=== PATIENT | male | born 1950 | race Caucasian/White ===

== ENCOUNTER 2017-07-08 21:34 | Inpatient (IN) | payer BC, OTHER ==
[~2017-07-08] VITALS: Ht 172.7 cm; Wt 88.1 kg
[~2017-07-08 21:34] MED LIST: ASPEC81 PO; ATOR80TA PO; ENAL1TAB29 PO; EZET10TA63 PO; FLUO0.0543 EXT; GEMF600T3 PO; GLC500 PO; INSU100I2 INJ; INSUINJ4 SQ; KPP/1000 PO; METO-452 PO; MULT-506 PO; PRLSR20 PO; TRIA0.1C20 TOP; VGR25 PO; [UNRECOGNIZED DRUG - OTHER] PO
[2017-07-08] MEDS ORDERED: LEVETIRACETAM IV 1,000 MG in DEXTROSE 5% 100ML 100 ML IV ONE (21:45)
[2017-07-08 21:51] LABS: BASO % 0.3 %; BASO ABS # 0.02 K/uL (0-0.2); EOS % 2.5 %; EOS ABS # 0.19 K/uL (0-0.5); HEMATOCRIT 39.5 % (42-52); HEMOGLOBIN 13.5 g/dL (14.0-18.0); IG# 0.02 K/uL (0.00-0.02); LYMPH % 42.7 %; LYMPH ABS # 3.26 K/uL (1.2-3.4); MEAN CELL VOLUME 90.2 fL (80-100); MEAN CORPUSCULAR HEMOGLOBIN 30.8 pg (25-34); MEAN CORPUSCULAR HGB CONC 34.2 g/dl (32-36); MEAN PLATELET VOLUME 10.3 fL (7.4-10.4); MONO % 6.7 %; MONO ABS # 0.51 K/uL (0.11-0.59); NEUT % 47.5 %; NEUT ABS # 3.64 K/uL (1.4-6.5); PLATELET COUNT 242 K/uL (130-400); RED CELL DISTRIBUTION WIDTH CV 12.7 % (11.5-14.5); RED CELL DISTRIBUTION WIDTH SD 41.8 fL (36.4-46.3); WHITE BLOOD COUNT 7.64 K/uL (4.8-10.8)
--- NOTE | 2017-07-08 22:01 | DIAGNOSTIC IMAGING REPORT ---
CT HEAD WITHOUT CONTRAST (CT) CLINICAL HISTORY: Seizure COMPARISON STUDY: 04/04/2018 TECHNIQUE: Axial CT of the brain is performed from the vertex to the skull base. IV contrast was not administered for this examination. A dose lowering technique was utilized adhering to the principles of ALARA. CT DOSE: 614.27 mGy.cm FINDINGS: No intra or extra-axial mass lesions are visualized. There is no CT evidence of acute cortical infarction. There is no evidence of midline shift. There is no acute hemorrhage. No calvarial fractures are visualized. There are patchy white matter hypodensities likely on a small vessel basis. There are postsurgical changes of a left frontotemporal craniotomy. There is left frontal lobe encephalomalacia. 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 There is no evidence of pathologic ventricular dilatation. There is no evidence of acute sinusitis. There is a right maxillary sinus polyp/retention cyst IMPRESSION: Postsurgical changes of a left frontotemporal craniotomy. Old left frontal encephalomalacia. No acute intracranial findings. Electronically signed by: Osman Contreras M.D. 07/08/2017 10:00 PM Dictated Date/Time: 07/08/2017 9:57 PM
[2017-07-08 22:03] LABS: PTT PATIENT 26.4 SECONDS (21.0-31.0)
[2017-07-08] MEDS ORDERED: CLBPO15 TOP (22:03)
[2017-07-08 22:04] LABS: BLOOD UREA NITROGEN 21 mg/dl (7-18); CALCIUM 10.1 mg/dl (8.5-10.1); CARBON DIOXIDE 27 mmol/L (21-32); CREATININE 1.19 mg/dl (0.60-1.40); GLUCOSE 139 mg/dl (70-99); POTASSIUM 4.2 mmol/L (3.5-5.1); SODIUM 137 mmol/L (136-145)
[2017-07-08 22:12] LABS: ISTAT CREATININE 1.2 mg/dl (0.6-1.3); ISTAT IONIZED CALCIUM 1.32 mmol/l (1.12-1.32); ISTAT POTASSIUM 3.7 mEq/L (3.3-5.0)
--- NOTE | 2017-07-08 22:14 | DIAGNOSTIC IMAGING REPORT ---
CHEST ONE VIEW PORTABLE CLINICAL HISTORY: SEIZURE COMPARISON STUDY: 04/04/2016 FINDINGS: The cardiac and mediastinal contours remain stable. There is a poor inspiration with low lung volumes. There is no lobar consolidation. There are no significant pleural effusions. There is no overt failure.[ There is chronic left basilar interstitial thickening. IMPRESSION: Poor inspiration with hypoventilatory changes. No evidence of lobar consolidation Electronically signed by: Osman Contreras M.D. 07/08/2017 10:13 PM Dictated Date/Time: 07/08/2017 10:12 PM
[2017-07-08] MEDS ORDERED: SODIUM CHLORIDE 0.9% IV STA (23:18)
[2017-07-08] MEDS ORDERED: LACOSAMIDE IV STA (23:18)
[2017-07-08] MEDS ORDERED: ONDANSETRON INJ 2 MG/ML 2 ML VIAL IV PRN (23:45)
[2017-07-08] MEDS ORDERED: TRIAMCINOLONE ACET 0.1% CR 15 GM TUBE EXT PRN (23:45)
[2017-07-08] MEDS ORDERED: FLUOCINONIDE 0.05% OINT 15 GM TUBE EXT PRN (23:45)
[2017-07-09 00:40] VITALS: BP 137/74; PULSE 92; TEMP 36.8; O2SAT 99; Ht 172.7 cm; Wt 88.1 kg
--- NOTE | 2017-07-09 00:43 | EMERGENCY ROOM VISIT NOTE ---
History Report prepared by Jerardo: Gage Kovacs Under the Supervision of: Dr. Julio Cesar Sun M.D. First contact with patient: 21:41 Chief Complaint: SEIZURE Stated Complaint: CONFUSION, STROKE SX Nursing Triage Summary: seizure at 2014 History of Present Illness The patient is a 66 year old male who presents to the Emergency Room via [facility] following multiple (intermittent) seizure episodes that occurred over the past 75 minutes. Per the patient's they were in the kitchen preparing dinner at roughly 2015 this evening when the patient began to exhibit a "focal seizure." He was to staring off to the right, and was blinking his eyes uncontrollably. He would not respond to his . This episode lasted about 45 seconds before he began to respond again. Following this episode he was walking around and he knew who his was. His sat him down on a chair.The patient was then post-ictal and the phoned for EMS. When en route to the hospital, the patient had a Grand Mal seizure that EMS state lasted 45 seconds. The patient's notes that he has a history of seizures and is currently on Keppra 2000 mg twice per day. He took his Keppra dosage tonight right before this seizure began. His seizure history began 2 years ago after a Meningioma was removed. Last week, before they took a trip to [place], the patient developed a right-sided facial droop and had pain in his right eye. They stopped in an ED on their trip and the patient was diagnosed with [place] Palsy. She denies any recent falls that could have caused a head injury. His blood sugar was 145 upon arrival to the ED. 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 Past Medical & Surgical Medical Problems: (1) CAD (coronary artery disease) (2) Coronary artery disease (3) Diabetes mellitus, type II (4) Dyslipidemia (5) Hypertension (6) Seizures, generalized convulsive (7) Type 2 diabetes mellitus Surgical Problems: (1) Status post cardiac catheterization (2) Status post coronary artery stent placement (3) Status post lumbar surgery Family History Alzheimer's disease MOTHER Social History Smoking Status: Never Smoker Alcohol Use: occasionally Drug Use: none Marital Status: Housing Status: lives with significant other Occupation Status: employed Current/Historical Medications Scheduled Aspirin Enteric Coated (Ecotrin Or Generic *), 81 MG PO DAILY Atorvastatin (Lipitor), 80 MG PO DAILY Clobetasol Propionate (Clobetasol Propionate), 1 APPLN TOP DAILY Enalapril Maleate (Vasotec), 2.5 MG PO DAILY Ezetimibe (Zetia), 10 MG PO QAM Fluocinonide 0.05% (Lidex 0.05%), 1 APPLN EXT UD Gemfibrozil (Lopid), 600 MG PO BID Insulin Glargine (Lantus Solostar Pen), 33 UNIT SQ HS Insulin Lispro (Human) (Humalog Kwikpen), 8 UNITS INJ UD Levetiracetam (Keppra), 2,000 MG PO BID Metformin HCL (Glucophage *), 1,000 MG PO BID Metoprolol Succinate (Toprol Xl), 25 MG PO DAILY Multivitamin (Multivitamin), 1 TAB PO DAILY Sildenafil Citrate (Viagra), 25 MG PO UD Triamcinolone Acet 0.1% (Aristocort 0.1%), 1 APPLN TOP UD [Fiber Chews], 2 TABS PO DAILY Allergies Coded Allergies: Sulfamethoxazole w/Trimethoprim (Verified Allergy, Intermediate, RASH, ) Ofloxacin (Unverified Allergy, Unknown, RASH, 07/08/17) Physical Exam Vital Signs Date Time Temp Pulse Resp B/P (MAP) Pulse Ox O2 Delivery O2 Flow Rate FiO2 07/08/17 23:43 98 21 129/88 98 Nasal Cannula 3.0 Non-Rebreather 07/08/17 22:18 119 21 130/77 98 Nasal Cannula 3.0 Non-Rebreather 07/08/17 22:02 129 07/08/17 22:02 100 Non-Rebreather 10.0 07/08/17 22:02 73 21 /156 100 Non-Rebreather 10.0 Physical Exam The physical exam is limited due to the patient's condition. Constitutional: Vital signs reviewed. Eyes: Pupils are equal round reactive to light. Conjunctiva are noninjected. ENT: Unable to assess. Respiratory: Clear to auscultation bilaterally. Breath sounds are equal bilaterally. Cardiovascular: Tachycardic. Heart rate 133. GI: Soft, nondistended and nontender. Bowel sounds are present. Musculoskeletal: No peripheral edema. No evidence of trauma. Integumentary: No cyanosis. Neurological: The patient is postictal. Psychiatric: Unable to assess. Medical Decision & Procedures ER Provider Diagnostic Interpretation: Radiology results as stated below per my review and the radiologist's interpretation: CHEST ONE VIEW PORTABLE CLINICAL HISTORY: SEIZURE COMPARISON STUDY: 04/04/2016 FINDINGS: The cardiac and mediastinal contours remain stable. There is a poor inspiration with low lung volumes. There is no lobar consolidation. There are no significant pleural effusions. There is no overt failure.[ There is chronic left basilar interstitial thickening. IMPRESSION: Poor inspiration with hypoventilatory changes. No evidence of lobar consolidation Electronically signed by: Osman Contreras M.D. 07/08/2017 10:13 PM Dictated Date/Time: 07/08/2017 10:[address] HEAD WITHOUT CONTRAST (CT) CLINICAL HISTORY: Seizure COMPARISON STUDY: 04/04/2018 TECHNIQUE: Axial CT of the brain is performed from the vertex to the skull base. IV contrast was not administered for this examination. A dose lowering technique was utilized adhering to the principles of ALARA. CT DOSE: 614.27 mGy.cm FINDINGS: No intra or extra-axial mass lesions are visualized. There is no CT evidence of acute cortical infarction. There is no evidence of midline shift. There is no acute hemorrhage. No calvarial fractures are visualized. There are patchy white matter hypodensities likely on a small vessel basis. There are postsurgical changes of a left frontotemporal craniotomy. There is left frontal lobe encephalomalacia. 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 There is no evidence of pathologic ventricular dilatation. There is no evidence of acute sinusitis. There is a right maxillary sinus polyp/retention cyst IMPRESSION: Postsurgical changes of a left frontotemporal craniotomy. Old left frontal encephalomalacia. No acute intracranial findings. Electronically signed by: Osman Contreras M.D. 07/08/2017 10:00 PM Dictated Date/Time: 07/08/2017 9:57 PM Laboratory Results 07/08/17 21:00 Red Blood Count 4.38, Mean Corpuscular Volume 90.2, Mean Corpuscular Hemoglobin 30.8, Mean Corpuscular Hemoglobin Concent 34.2, Mean Platelet Volume 10.3, Neutrophils (%) (Auto) 47.5, Lymphocytes (%) (Auto) 42.7, Monocytes (%) (Auto) 6.7, Eosinophils (%) (Auto) 2.5, Basophils (%) (Auto) 0.3, Neutrophils # (Auto) 3.64, Lymphocytes # (Auto) 3.26, Monocytes # (Auto) 0.51, Eosinophils # (Auto) 0.19, Basophils # (Auto) 0.02 07/08/17 21:00 Test 07/08/17 21:00 07/08/17 21:59 White Blood Count 7.64 K/uL (4.8-10.8) Red Blood Count 4.38 M/uL (4.7-6.1) Hemoglobin 13.5 g/dL (14.0-18.0) Hematocrit 39.5 % (42-52) Mean Corpuscular Volume 90.2 fL (80-100) Mean Corpuscular Hemoglobin 30.8 pg (25-34) Mean Corpuscular Hemoglobin Concent 34.2 g/dl (32-36) Platelet Count 242 K/uL (130-400) Mean Platelet Volume 10.3 fL (7.4-10.4) Neutrophils (%) (Auto) 47.5 % Lymphocytes (%) (Auto) 42.7 % Monocytes (%) (Auto) 6.7 % Eosinophils (%) (Auto) 2.5 % Basophils (%) (Auto) 0.3 % Neutrophils # (Auto) 3.64 K/uL (1.4-6.5) Lymphocytes # (Auto) 3.26 K/uL (1.2-3.4) Monocytes # (Auto) 0.51 K/uL (0.11-0.59) Eosinophils # (Auto) 0.19 K/uL (0-0.5) Basophils # (Auto) 0.02 K/uL (0-0.2) RDW Standard Deviation 41.8 fL (36.4-46.3) RDW Coefficient of Variation 12.7 % (11.5-14.5) Immature Granulocyte % (Auto) 0.3 % Immature Granulocyte # (Auto) 0.02 K/uL (0.00-0.02) Prothrombin Time 10.8 SECONDS (9.0-12.0) Prothromb Time International Ratio 1.0 (0.9-1.1) Activated Partial Thromboplast Time 26.4 SECONDS (21.0-31.0) Partial Thromboplastin Ratio 1.0 Estimated GFR () 73.9 Estimated GFR (Non- 63.7 BUN/Creatinine Ratio 17.6 (10-20) Calcium Level 10.1 mg/dl (8.5-10.1) Magnesium Level 1.6 mg/dl (1.8-2.4) Thyroid Stimulating Hormone (TSH) 3.050 uIu/ml (0.300-4.500) Bedside Hemoglobin 14.6 g/dl (14.0-18.0) Bedside Hematocrit 43 % (42-52) Bedside Sodium 144 mEq/L (135-144) Bedside Potassium 3.7 mEq/L (3.3-5.0) Bedside Chloride 106 mEq/L (101-112) Bedside Total CO2 14 mEq/l (24-31) Anion Gap 29.0 mmol/L (16-25) Bedside Blood Urea Nitrogen 25 mg/dl (7-18) Bedside Creatinine 1.2 mg/dl (0.6-1.3) Bedside Glucose (other) 178 mg/dl (70-99) Bedside Ionized Calcium (Shayan) 1.32 mmol/l (1.12-1.32) Laboratory results as reviewed by me. Medications Administered Medications (Trade) Dose Ordered Sig/Stephanie Route Start Time Stop Time Status Last Admin Dose Admin Levetiracetam 1000 mg/Dextrose 110 ml @ 440 mls/hr ONE ONCE IV 07/08/17 21:45 07/08/17 21:59 DC 07/08/17 22:25 440 MLS/HR Lacosamide 200 mg/ Sodium Chloride 70 ml @ 140 mls/hr ONE STAT IV 07/08/17 23:18 07/08/17 23:47 DC 07/08/17 23:54 140 MLS/HR ECG Indication: altered mental status, other (Seizure) Rate (beats per minute): 123 Rhythm: sinus tachycardia Findings: no ectopy, other (No ST-segment abnormalities, baseline artifact noted) Change: Patient's electrocardiogram per my interpretation. ED Course 2135: The patient was evaluated in room B1. A complete history and physical exam was performed. 2144: Ordered Levetiracetam 110 mL @ 440 mL/hr IV. 2147: I checked on the patient at this time. He is currently post ictal. 2205: The patient is now making some minor purposeful movements. He is responding to his 's voice. 2244: I discussed the case with Dr. Juan Miguel Isaac Neurology. She is going to do some research and call me back. 225: I discussed the case with Dr. Marcia Isaac Hospitalist. He will evaluate the patient for further treatment. 2308: I spoke with Dr. Bullard again at this time. She suggests treating the patient with 200 mg of VIMPAT as a loading dose, then 100 BID. 2316: The patient is awake and alert. He was able to swallow some water. I am concerned for Aspiration with oral medications, I will give medication IV. 2318: Ordered Lacosamide 200 mg -- 70 mL @ 140 mL/hr IV. 2320: The patient is now up and moving about the room. He is not really answering questions. Medical Decision This is a 66-year-old male who presents with seizures. Differential diagnosis includes breakthrough seizure, status epilepticus, intracranial hemorrhage, intracranial mass, metabolic derangement. I did perform a limited focused review of portions of the patient's old chart on the electronic medical record. The patient has had no recent pertinent visits to this hospital. He was here for a seizure in March of 2016, he was diagnosed with status epilepticus and flown to [facility]. I did immediately evaluate the patient as noted above. Shortly after arrival the patient developed a grand mal seizure. He was given Ativan 2 mg IV. His seizure did stop. The patient was placed on a continuous cardiac rehab nurse. I did order and personally review the patient's 12-lead EKG and chest x-ray as described above. I did order and review the patient's blood work as noted in the electronic medical record. I did order a CT of the head. I did review the images myself as well as the radiology report as described above. There is no evidence of intracranial hemorrhage. I did treat the patient with Keppra 1 g IV. I did reassess the patient multiple times. He did not have another seizure. He was poked rectal for some time but then awoke and responded to his . I did discuss case with Dr. Grissom of neurology who recommended basement patient on Vimpat. I was not sure that the patient could swallow pills and so I did treat him with Vimpat 200 mg IV. I did discuss the case with the hospitalist and correctional counselor/case manager. He will be continued on Vimpat 100 mg twice a day in the hospital and also Keppra. Medication Reconcilliation Current Medication List: was personally reviewed by me Blood Pressure Screening Patient's blood pressure: Elevated blood pressure Consults Time Called: 2239 Consulting Physician: Dr. Juan Miguel Isaac Neurology Returned Call: 2244 I discussed the case with Dr. Juan Miguel Isaac Neurology. She is going to do some research and call me back. 2307: I spoke with Dr. Bullard again at this time. She suggests treating the patient with 200 mg of VIMPAT as a loading dose, then 100 BID. Additional Consults: Time Called: 2245 Consulted Physician: Dr. Marcia Isaac Hospitalist Returned Call: 2249 Additional Comments: I discussed the case with Dr. Marcia Isaac Hospitalist. He will evaluate the patient for further treatment. Impression Primary Impression: Seizures Critical Care I have personally spent 42 minutes of critical care time in the direct management of this patient. This includes bedside care, interpretation of diagnostic studies, and testing, discussion with consultants, patient, and family members, and other required patient management activities. This 42 minutes is in excess of all separately billable procedures. Scribe Attestation The scribe's documentation has been prepared under my direct and personally reviewed by me in its entirety. I confirm that the note above accurately reflects all work, treatment, procedures, and medical decision making performed by me. Departure Information Dispostion Being Evaluated By Hospitalist Referrals Giovanny Braxton MD (PCP) Patient Instructions [facility]
[2017-07-09] MEDS ORDERED: MAGNESIUM SULFATE 1GM / D5W 1 GM in PREMIXED IN D5W 100 ML IV STA (00:56)
--- NOTE | 2017-07-09 01:23 | HISTORY & PHYSICAL EXAMINATION ---
DATE OF ADMISSION: 07/08/2017 PRIMARY CARE PHYSICIAN: Dr. Braxton. CHIEF COMPLAINT: Seizures since this evening. 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 Apparently has had initial seizures sometime in 2014 and at that time he was diagnosed to have meningioma of the left frontal lobe. He had surgery for the meningioma in 2014 in [place]. He was taking Keppra and Vimpat following surgery. The Vimpat was taken and then Keppra was in the process of weaning off. Sometime in 2015, he had another seizure and required intubation, he was sent to [place]. Following that, he is back on 2000 mg b.i.d. of Keppra and until this evening he was doing pretty good. In the evening, he was in the kitchen, he was with his , and noticed that he was looking at the ceiling like a vacant look and he was moving his hands upward without any purposeful movement and he was noted to be dysphasic as well. At that point, called EMT. In the process of coming to the Emergency Room, in the ambulance he had a grand mal seizure which was treated with intravenous Ativan, and then in the ER, he had another focal seizure as well. His CAT scan and other labs remain unremarkable. So the case was discussed with on-call neurologist by the ER physician and was advised to give a loading dose of Vimpat and the patient was admitted to telemetry unit for continuation of care. The patient remains in postictal state in the Emergency Room. PAST MEDICAL HISTORY: CAD, status post angioplasty and stent, diabetes type 2, seizures secondary to meningioma and meningectomy from the left frontal lobe, hyperlipidemia, history of renal stone, hemorrhoids. PAST SURGICAL HISTORY: Significant for cardiac cath with angioplasty, removal of supratentorial brain tumor, i.e., meningioma. FAMILY HISTORY: Significant in that maternal grandmother had hyperlipidemia. Mother has Alzheimer's disease and father at the age of 89. SOCIAL HISTORY: He is . He lives with his . He has 2 children. He quit smoking in 2003. He drinks alcohol very very occasionally. He has had 2 or 3 drinks recently when he was in vacation with family members. No drinking as of yesterday or today. ALLERGIES: HE IS ALLERGIC TO BACTRIM AND OFLOXACIN. MEDICATIONS: He has been on insulin Humalog as directed, metformin 1000 mg b.i.d., Viagra 25 mg as directed, aspirin 81 mg daily, Lipitor 80 mg daily, clobetasol propionate as directed, Vasotec 2.5 mg daily, Zetia 10 mg daily, fluocinonide 0.05% ointment as directed, Lopid 600 mg b.i.d., Lantus 33 units subcu at bedtime, Keppra 2000 mg b.i.d., Toprol-XL 50 mg tablet half tablet daily, multivitamin 1 tablet daily, Aristocort cream 0.1% as directed. REVIEW OF SYSTEMS: Not possible at this time due to postictal state. PHYSICAL EXAMINATION: GENERAL: In the Emergency Room, he was in postictal state. He was moving all the limbs. He was trying to speak but not making any sense when he was speaking. He was not following any commands. HEENT: Unremarkable. VITAL SIGNS: Temperature, afebrile; pulse 119; blood pressure 130/77; saturation 98% on 3 liters nasal cannula. HEENT: Unremarkable. NECK: Supple. No JVD, no bruit. CHEST: Clear to auscultation bilaterally. HEART: S1, S2, regular. ABDOMEN: Soft, benign, nontender. No organomegaly. Bowel sounds present. EXTREMITIES: Negative. CENTRAL NERVOUS SYSTEM: Not really examined due to postictal state. LABORATORY DATA: Noted today white count was 7.64, H&H 13.5/39, platelet was 242. Sodium 144, potassium 3.7, chloride 106, carbon dioxide 27, anion gap 29, BUN 25, creatinine 1.19, random glucose 178. TSH was 3.050. Magnesium 1.6. PT and INR unremarkable. CT of the head did show post-surgical changes of left frontotemporal craniectomy, old left frontal encephalomalacia, but no acute findings. Chest x-ray reported as poor inspiration with hypoventilatory changes, no evidence of lobar consolidation. EKG was in sinus tachycardia, rate of 123, normal axis and nonspecific ST-T wave changes. IMPRESSION AND PLAN: 1. Episodes of seizures with history of seizure disorder. The seizures controlled with intravenous Ativan in the ambulance and also he received additional doses of Vimpat IV in the Emergency Room. He was admitted to telemetry unit. Seizure precaution, fall precaution and neuro check q. shift. We will continue with Keppra at previous dose of 2000 b.i.d. and add Vimpat 100 mg b.i.d., he received loading dose of 200 mg IV in the Emergency Room. Neurology consultation. 2. Meningioma, status post surgery. The cause of the seizure initially was meningioma, and then following surgery, he was continued with anti-seizure medication. We will continue seizure medication right now. 3. Diabetes type 2. Hold metformin. Continue Lantus and also put him on sliding scale coverage. Check hemoglobin A1c. 4. Coronary artery disease, status post cardiac stent. No acute findings. EKG remains unremarkable. Continue metoprolol in the hospital. 5. Hyperlipidemia. Continue with antilipid medication. 6. Gastrointestinal prophylaxis, Maalox and Mylanta as needed. 7. Deep venous thrombosis prophylaxis with SCDs. Because of seizures, we will not put any pharmacological anticoagulation right now. 8. Code status. He will be full code. In my clinical judgment, the beneficiary meets criteria as per CMS for 2-midnight stay in the hospital. ANEUDY
[2017-07-09] MEDS: INSULIN ASPART 100 UNITS/ML 3 ML PEN SC SCH ×3 (01:47→22:48)
[2017-07-09] MEDS: NSS + 20MEQ KCL 1000ML 1,000 ML IV SCH ×3 (02:54→22:26)
[2017-07-09] MEDS ORDERED: LORAZEPAM 2 MG/ML 1 ML VIAL IV PRN (03:45)
[2017-07-09 04:21] VITALS: BP 115/71; PULSE 93; TEMP 36.6; O2SAT 98
[2017-07-09 07:04] LABS: HEMATOCRIT 35.3 % (42-52); HEMOGLOBIN 12.3 g/dL (14.0-18.0); MEAN CELL VOLUME 90.3 fL (80-100); MEAN CORPUSCULAR HEMOGLOBIN 31.5 pg (25-34); MEAN CORPUSCULAR HGB CONC 34.8 g/dl (32-36); MEAN PLATELET VOLUME 9.9 fL (7.4-10.4); PLATELET COUNT 206 K/uL (130-400); RED CELL DISTRIBUTION WIDTH CV 12.9 % (11.5-14.5); RED CELL DISTRIBUTION WIDTH SD 41.5 fL (36.4-46.3); WHITE BLOOD COUNT 8.64 K/uL (4.8-10.8)
[2017-07-09 07:36] LABS: CREATININE 0.94 mg/dl (0.60-1.40); POTASSIUM 4.4 mmol/L (3.5-5.1)
[2017-07-09 07:37] LABS: PHOSPHORUS 3.4 mg/dl (2.5-4.9)
[2017-07-09 08:00] VITALS: BP_SYST 123; BP_SYST 144; BP_DIAS 63; BP_DIAS 69; PULSE 71; PULSE 80; TEMP 36.8; O2SAT 98
[2017-07-09] MEDS ORDERED: INFLUENZA ADMINISTRATION CHARGE ONE (08:00)
[2017-07-09] MEDS ORDERED: INFLUENZA VACCINE HIGH DOSE 65+ 0.5 ML SYR IM. ONE (08:00)
[2017-07-09 08:50] LABS: HEMOGLOBIN A1C 7.5 % (4.5-5.6)
[2017-07-09] MEDS: GEMFIBROZIL 600 MG TAB PO SCH ×2 (10:26→22:13)
[2017-07-09] MEDS: EZETIMIBE 10MG TAB PO SCH (10:26)
[2017-07-09] MEDS: ATORVASTATIN 40 MG TAB PO SCH (10:26)
[2017-07-09] MEDS: ENALAPRIL MALEATE 5 MG TAB PO SCH (10:28)
[2017-07-09] MEDS: ASPIRIN 81 MG ECTAB PO SCH (10:28)
[2017-07-09] MEDS: LACOSAMIDE 50 MG TAB PO SCH ×2 (10:30→22:43)
[2017-07-09] MEDS: LEVETIRACETAM 500 MG TAB PO SCH ×2 (10:30→22:13)
[2017-07-09] MEDS: MULTIVITAMIN TAB PO SCH (10:30)
[2017-07-09] MEDS: METOPROLOL SUCC 25MG EXT REL TAB PO SCH (10:31)
[2017-07-09] MEDS: CLOBETASOL PROPIONATE 0.05% OINT 15 GM TUBE EXT SCH (10:36)
[2017-07-09 11:54] VITALS: BP 131/58; PULSE 88; TEMP 36.5; O2SAT 96
[2017-07-09] MEDS ORDERED: NURSING VERBAL MED ORDER ONE (12:30)
--- NOTE | 2017-07-09 13:12 | EEG Procedure Note ---
EEG Procedure Note Date of Service Jul 09, 2017. Start / End Times Start Time: 9:10 AM End Time: 9:[address] Kennedy History This is a 66-year-old male who presents with seizure-like activity. EEG for further evaluation of seizure etiology. Home Medication List Scheduled Aspirin Enteric Coated (Ecotrin Or Generic *), 81 MG PO DAILY Atorvastatin (Lipitor), 80 MG PO DAILY Clobetasol Propionate (Clobetasol Propionate), 1 APPLN TOP DAILY Enalapril Maleate (Vasotec), 2.5 MG PO DAILY Ezetimibe (Zetia), 10 MG PO QAM Fluocinonide 0.05% (Lidex 0.05%), 1 APPLN EXT UD Gemfibrozil (Lopid), 600 MG PO BID Insulin Glargine (Lantus Solostar Pen), 33 UNIT SQ HS Insulin Lispro (Human) (Humalog Kwikpen), 8 UNITS INJ UD Levetiracetam (Keppra), 2,000 MG PO BID Metformin HCL (Glucophage *), 1,000 MG PO BID Metoprolol Succinate (Toprol Xl), 25 MG PO DAILY Multivitamin (Multivitamin), 1 TAB PO DAILY Sildenafil Citrate (Viagra), 25 MG PO UD Triamcinolone Acet 0.1% (Aristocort 0.1%), 1 APPLN TOP UD [Fiber Chews], 2 TABS PO DAILY Inpatient Medication List Current Inpatient Medications Medications (Trade) Dose Ordered Sig/Stephanie Route Start Time Stop Time Status Last Admin Dose Admin Ondansetron HCl (Zofran Inj) 4 mg Q6H PRN IV 07/08/17 23:45 08/07/17 23:44 Aspirin (Ecotrin Tab) 81 mg DAILY PO 07/09/17 09:00 08/08/17 08:59 07/09/17 10:28 81 MG Atorvastatin Calcium (Lipitor Tab) 80 mg DAILY PO 07/09/17 09:00 08/08/17 08:59 07/09/17 10:26 80 MG Enalapril Maleate (Vasotec Tab) 2.5 mg DAILY PO 07/09/17 09:00 08/08/17 08:59 07/09/17 10:28 2.5 MG EZETIMIBE (Zetia Tab) 10 mg QAM PO 07/09/17 09:00 08/08/17 08:59 07/09/17 10:26 10 MG Fluocinonide (Lidex Oint) 1 appln DAILY PRN EXT 07/08/17 23:45 08/07/17 23:44 Gemfibrozil (Lopid Tab) 600 mg BID PO 07/09/17 09:00 08/08/17 08:59 07/09/17 10:26 600 MG Insulin Glargine (Lantus Solostar Pen) 33 units HS SQ 07/09/17 21:00 08/08/17 20:59 Levetiracetam (Keppra Tab) 2,000 mg BID PO 07/09/17 09:00 08/08/17 08:59 07/09/17 10:30 2,000 MG Metoprolol Succinate (Toprol Xl Tab) 25 mg DAILY PO 07/09/17 09:00 08/08/17 08:59 07/09/17 10:31 25 MG Multivitamins (Multivitamin Tab) 1 tab DAILY PO 07/09/17 09:00 08/08/17 08:59 07/09/17 10:30 1 TAB Triamcinolone Acetonide (Kenalog 0.1% Cream) 1 appln BID PRN EXT 07/08/17 23:45 08/07/17 23:44 Clobetasol Propionate (Clobetasol Propionate Oint) 1 appln DAILY EXT 07/09/17 09:00 08/08/17 08:59 07/09/17 10:36 1 APPLN Potassium Chloride/Sodium Chloride 1,000 ml @ 100 mls/hr Q10H IV 07/09/17 01:30 07/10/17 07:29 07/09/17 02:54 100 MLS/HR Lacosamide (Vimpat Tab) 100 mg BID PO 07/09/17 09:00 08/08/17 08:59 07/09/17 10:30 100 MG Lorazepam (Ativan Inj) 1 mg ONE PRN IV 07/09/17 03:45 08/08/17 03:44 Insulin Aspart (novoLOG ASPART) SLIDING SCALE G... ACHS SC 07/09/17 16:15 08/08/17 16:14 Description This is a 21 electrode EEG with a single channel dedicated to limited EKG. The electrodes were placed in accordance with the International 10-20 system. At the start of the recording the patient was in an awake state. Background was well organized and composed of symmetric mixed alpha and beta frequencies. There was a symmetric well-formed moderate amplitude 9-10 Hz posterior dominant rhythm that was reactive to eye opening and closure. Hyperventilation was not done. Intermittent photic stimulation at various frequencies produced no abnormalities. Sleep was indicated by vertex waves and symmetric sleep spindles. Interpretation This is a normal awake and asleep routine EEG. There was no electrographic seizures or epileptiform discharges. Clinical Correlation A normal EEG does not rule out epilepsy if there is a strong clinical suspicion.
--- NOTE | 2017-07-09 14:49 | Neurology Consultation ---
Neurology Consultation Date of Consultation: Jul 09, 2017. Attending Physician: Cody Calixto M.D. Primary Care Physician: Giovanny Braxton MD Reason for Consultation: seizure disorder with breakthrough seizure History of Present Illness Source: patient, spouse He is a 66-year-old male with PMH CAD x 2 stents, DL, DM, HTN his first seizure was secondary to meningioma and surgery following meningioma. The initial seizure was in 2014 and at that time he was diagnosed with the meningioma He had surgery for the meningioma in 2014 in [place]. He was taking Keppra and Vimpat following surgery. He was weaned off the Vimpat and then the Keppra but in 2016, he had another seizure and required intubation, he was sent to [place]. he was restarted on the 2000 mg b.i.d. of Keppra with good control until last evening. His states he was in the kitchen and had a starring episode looking up to the ceiling. he was moving his hands in an upward motion with no purpose. At that point, called EMT. In the ambulance he had a grand mal seizure and they were going to give him ativan but the seizure stopped before administration. He then had another focal seizure in the ED. He had incontinence of bladder and bit his upper lip on the left. The ED then gave a loading dose of Vimpat. 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 this has mostly resolved. denies CP, SOB, abdominal pain, weakness, numbness tingling, vision changes, falls, missed doses, N, V. He was a smoker for age [age]. no Etoh use, no other drugs. states he did eat lunch with no swallowing issues. Past Medical/Surgical History Medical Problems: (1) Seizures Status: Acute Social History Smoking Status: Former smoker Drug Use: none Marital Status: Housing Status: lives with significant other Occupation Status: employed Allergies Coded Allergies: Sulfamethoxazole w/Trimethoprim (Verified Allergy, Intermediate, RASH, ) Ofloxacin (Unverified Allergy, Unknown, RASH, 07/08/17) Current Inpatient Medications Current Inpatient Medications Medications (Trade) Dose Ordered Sig/Stephanie Route Start Time Stop Time Status Last Admin Dose Admin Ondansetron HCl (Zofran Inj) 4 mg Q6H PRN IV 07/08/17 23:45 08/07/17 23:44 Aspirin (Ecotrin Tab) 81 mg DAILY PO 07/09/17 09:00 08/08/17 08:59 07/09/17 10:28 81 MG Atorvastatin Calcium (Lipitor Tab) 80 mg DAILY PO 07/09/17 09:00 08/08/17 08:59 07/09/17 10:26 80 MG Enalapril Maleate (Vasotec Tab) 2.5 mg DAILY PO 07/09/17 09:00 08/08/17 08:59 07/09/17 10:28 2.5 MG EZETIMIBE (Zetia Tab) 10 mg QAM PO 07/09/17 09:00 08/08/17 08:59 07/09/17 10:26 10 MG Fluocinonide (Lidex Oint) 1 appln DAILY PRN EXT 07/08/17 23:45 08/07/17 23:44 Gemfibrozil (Lopid Tab) 600 mg BID PO 07/09/17 09:00 08/08/17 08:59 07/09/17 10:26 600 MG Insulin Glargine (Lantus Solostar Pen) 33 units HS SQ 07/09/17 21:00 08/08/17 20:59 Levetiracetam (Keppra Tab) 2,000 mg BID PO 07/09/17 09:00 08/08/17 08:59 07/09/17 10:30 2,000 MG Metoprolol Succinate (Toprol Xl Tab) 25 mg DAILY PO 07/09/17 09:00 08/08/17 08:59 07/09/17 10:31 25 MG Multivitamins (Multivitamin Tab) 1 tab DAILY PO 07/09/17 09:00 08/08/17 08:59 07/09/17 10:30 1 TAB Triamcinolone Acetonide (Kenalog 0.1% Cream) 1 appln BID PRN EXT 07/08/17 23:45 08/07/17 23:44 Clobetasol Propionate (Clobetasol Propionate Oint) 1 appln DAILY EXT 07/09/17 09:00 08/08/17 08:59 07/09/17 10:36 1 APPLN Potassium Chloride/Sodium Chloride 1,000 ml @ 100 mls/hr Q10H IV 07/09/17 01:30 07/10/17 07:29 07/09/17 11:30 100 MLS/HR Lacosamide (Vimpat Tab) 100 mg BID PO 07/09/17 09:00 08/08/17 08:59 07/09/17 10:30 100 MG Lorazepam (Ativan Inj) 1 mg ONE PRN IV 07/09/17 03:45 08/08/17 03:44 Insulin Aspart (novoLOG ASPART) SLIDING SCALE G... ACHS SC 07/09/17 16:15 08/08/17 16:14 Physical Exam Vital Signs (Past 24 Hrs): Date Time Temp Pulse Resp B/P (MAP) Pulse Ox O2 Delivery O2 Flow Rate FiO2 07/09/17 12:00 Nasal Cannula 2.0 07/09/17 11:54 36.5 88 16 131/58 (82) 96 07/09/17 08:00 Nasal Cannula 2.0 07/09/17 08:00 36.8 80 18 123/69 (87) 98 07/09/17 04:21 36.6 93 17 115/71 (86) 98 Nasal Cannula 4.0 07/09/17 04:20 Nasal Cannula 4.0 07/09/17 00:40 36.8 92 16 137/74 99 Nasal Cannula 4.0 07/08/17 23:43 98 21 129/88 98 Nasal Cannula 3.0 Non-Rebreather 07/08/17 22:18 119 21 130/77 98 Nasal Cannula 3.0 Non-Rebreather 07/08/17 22:02 129 07/08/17 22:02 100 Non-Rebreather 10.0 07/08/17 22:02 73 21 /156 100 Non-Rebreather 10.0 Physical Exam: Constitutional: appearance nourished, healthy and normal Ears, Nose, Mouth and Throat: mucous membranes moist, no injection and skin normal, eyes normal, left upper lip abrasion Cardiovascular: normal S-1 and S-2 and regular rate and rhythm Respiratory: clear to auscultation (CTA) and no rales, rhonchi or wheeze Musculoskeletal: no peripheral edema and good distal pulses Skin: no stigmata of neurocutaneous disease noted and normal and intact Eyes: extraocular muscles intact (EOMI) and pupils equal, round and reactive to light (PERRL) NEUROLOGIC EXAMINATION: Mental status: Alert and interactive Oriented to full date and location, June, when asked if it is Winter summer spring or fall he keeps repeating June Oriented to person Speech he is repeating things and is notably confused Cranial Nerves slight flattening of naso labial fold, Reflexes: Deep tendon reflexes were symmetrical and graded 2/5. Plantar responses were flexor. Sensory: light or cool touch Coordination: finger to nose with no bi pass, has some trouble with doing this but when repeat follow command Gait/Stance: Posture sitting up in bed Motor: Negative for pronator drift of out stretched arms with eyes closed. Strength: biceps triceps hand extractor filler bilaterally 5/5, hip flex plantar flex ext bilaterally Laboratory Results Past 24 Hours: 07/09/17 06:45 07/09/17 06:45 Test 07/08/17 21:00 07/08/17 21:59 07/09/17 06:45 07/09/17 07:17 Immature Granulocyte % (Auto) 0.3 % White Blood Count 7.64 K/uL (4.8-10.8) Red Blood Count 4.38 M/uL (4.7-6.1) 3.91 M/uL (4.7-6.1) Hemoglobin 13.5 g/dL (14.0-18.0) Hematocrit 39.5 % (42-52) Mean Corpuscular Volume 90.2 fL (80-100) 90.3 fL (80-100) Mean Corpuscular Hemoglobin 30.8 pg (25-34) 31.5 pg (25-34) Mean Corpuscular Hemoglobin Concent 34.2 g/dl (32-36) 34.8 g/dl (32-36) Platelet Count 242 K/uL (130-400) Mean Platelet Volume 10.3 fL (7.4-10.4) 9.9 fL (7.4-10.4) Neutrophils (%) (Auto) 47.5 % Lymphocytes (%) (Auto) 42.7 % Monocytes (%) (Auto) 6.7 % Eosinophils (%) (Auto) 2.5 % Basophils (%) (Auto) 0.3 % Neutrophils # (Auto) 3.64 K/uL (1.4-6.5) Lymphocytes # (Auto) 3.26 K/uL (1.2-3.4) Monocytes # (Auto) 0.51 K/uL (0.11-0.59) Eosinophils # (Auto) 0.19 K/uL (0-0.5) Basophils # (Auto) 0.02 K/uL (0-0.2) Immature Granulocyte # (Auto) 0.02 K/uL (0.00-0.02) Prothrombin Time 10.8 SECONDS (9.0-12.0) Prothromb Time International Ratio 1.0 (0.9-1.1) Activated Partial Thromboplast Time 26.4 SECONDS (21.0-31.0) Partial Thromboplastin Ratio 1.0 Thyroid Stimulating Hormone (TSH) 3.050 uIu/ml (0.300-4.500) Bedside Hemoglobin 14.6 g/dl (14.0-18.0) Bedside Hematocrit 43 % (42-52) Bedside Sodium 144 mEq/L (135-144) Bedside Potassium 3.7 mEq/L (3.3-5.0) Bedside Chloride 106 mEq/L (101-112) Bedside Total CO2 14 mEq/l (24-31) Bedside Blood Urea Nitrogen 25 mg/dl (7-18) Bedside Creatinine 1.2 mg/dl (0.6-1.3) Bedside Glucose (other) 178 mg/dl (70-99) Bedside Ionized Calcium (Shayan) 1.32 mmol/l (1.12-1.32) RDW Standard Deviation 41.5 fL (36.4-46.3) RDW Coefficient of Variation 12.9 % (11.5-14.5) Anion Gap 8.0 mmol/L (3-11) Est Creatinine Clear Calc Drug Dose 84.7 ml/min Estimated GFR () 98.2 Estimated GFR (Non- 84.7 BUN/Creatinine Ratio 21.3 (10-20) Estimated Average Glucose 169 mg/dl Hemoglobin A1c 7.5 % (4.5-5.6) Calcium Level 9.0 mg/dl (8.5-10.1) Phosphorus Level 3.4 mg/dl (2.5-4.9) Magnesium Level 1.8 mg/dl (1.8-2.4) Bedside Glucose 119 mg/dl (70-99) Imaging CT head- : Postsurgical changes of a left frontotemporal craniotomy. Old left frontal encephalomalacia. No acute intracranial findings. A normal EEG does not rule out epilepsy if there is a strong clinical suspicion. Impression 66 year old male s/p break through seizure with continued confusion Plan 1. continue Keppra 2000mg BID 2. Vimpat loaded and then restarted at 100 mg BID 3. fall and seizure precautions 4. no driving for 6 months after being seizure free 5. EEG with no seizure spikes- normal awake and drowsy 6. concerned about ongoing confusion- longer postictal then in the past 7. ordered MRI combo brain for continued confusion- and history of meningioma and Catron palsy I have seen and discussed above patient with Dr Anahy Bullard, neurology Pt seen and examined, hx reviewed. Yesterday 1 gtc and 2 pcom sz. PT not yet back to baseline likely a combination of polypharmacy and post-ictal state. EEG shows no ongoing sz. No change in keppra, new start of vimpat 100 mg bid. Rec fu ekg as vimpat can increase QT. DO Bullard MD
--- NOTE | 2017-07-09 16:04 | Progress Note ---
Medicine Progress Note Date & Time of Visit: Jul 09, 2017 at 15:43. Subjective Pt was seen and examined Lying in bed with no distress with at bedside Pt said that his thought process seems to be slow said that is not his baseline Pt could not recall the month and took a little time to answer the questions Pt has not had any more seizure since admitting Denies any chest pain, palpitation, dizziness and SOB Objective Last 8 Hrs Date Time Temp Pulse Resp B/P (MAP) Pulse Ox O2 Delivery O2 Flow Rate FiO2 07/09/17 12:00 Nasal Cannula 2.0 07/09/17 11:54 36.5 88 16 131/58 (82) 96 07/09/17 08:00 Nasal Cannula 2.0 07/09/17 08:00 36.8 80 18 123/69 (87) 98 Physical Exam: General- No acute distress, slow thought process Head- atraumatic Eyes- PERRL, EOMI ENT- oropharynx clear Neck- supple, no JVD Lungs- clear to auscultation Heart- regular rhythm; no murmur Abdomen- normal bowel sounds, soft Extremities- no calf tenderness Neuro- alert, oriented x 3; PERRL, EOMI; no facial palsy Skin- warm & dry Laboratory Results: Last 24 Hours Test 07/08/17 21:00 07/08/17 21:59 07/09/17 01:46 07/09/17 06:13 White Blood Count 7.64 K/uL Red Blood Count 4.38 M/uL Hemoglobin 13.5 g/dL Hematocrit 39.5 % Mean Corpuscular Volume 90.2 fL Mean Corpuscular Hemoglobin 30.8 pg Mean Corpuscular Hemoglobin Concent 34.2 g/dl Platelet Count 242 K/uL Mean Platelet Volume 10.3 fL Neutrophils (%) (Auto) 47.5 % Lymphocytes (%) (Auto) 42.7 % Monocytes (%) (Auto) 6.7 % Eosinophils (%) (Auto) 2.5 % Basophils (%) (Auto) 0.3 % Neutrophils # (Auto) 3.64 K/uL Lymphocytes # (Auto) 3.26 K/uL Monocytes # (Auto) 0.51 K/uL Eosinophils # (Auto) 0.19 K/uL Basophils # (Auto) 0.02 K/uL RDW Standard Deviation 41.8 fL RDW Coefficient of Variation 12.7 % Immature Granulocyte % (Auto) 0.3 % Immature Granulocyte # (Auto) 0.02 K/uL Prothrombin Time 10.8 SECONDS Prothromb Time International Ratio 1.0 Activated Partial Thromboplast Time 26.4 SECONDS Partial Thromboplastin Ratio 1.0 Sodium Level 137 mmol/L Potassium Level 4.2 mmol/L Chloride Level 103 mmol/L Carbon Dioxide Level 27 mmol/L Anion Gap 7.0 mmol/L 29.0 mmol/L Blood Urea Nitrogen 21 mg/dl Creatinine 1.19 mg/dl Estimated GFR () 73.9 Estimated GFR (Non- 63.7 BUN/Creatinine Ratio 17.6 Random Glucose 139 mg/dl Calcium Level 10.1 mg/dl Magnesium Level 1.6 mg/dl Thyroid Stimulating Hormone (TSH) 3.050 uIu/ml Bedside Hemoglobin 14.6 g/dl Bedside Hematocrit 43 % Bedside Sodium 144 mEq/L Bedside Potassium 3.7 mEq/L Bedside Chloride 106 mEq/L Bedside Total CO2 14 mEq/l Bedside Blood Urea Nitrogen 25 mg/dl Bedside Creatinine 1.2 mg/dl Bedside Glucose (other) 178 mg/dl Bedside Ionized Calcium (Shayan) 1.32 mmol/l Bedside Glucose 101 mg/dl 100 mg/dl Test 07/09/17 06:45 07/09/17 07:17 07/09/17 11:18 White Blood Count 8.64 K/uL Red Blood Count 3.91 M/uL Hemoglobin 12.3 g/dL Hematocrit 35.3 % Mean Corpuscular Volume 90.3 fL Mean Corpuscular Hemoglobin 31.5 pg Mean Corpuscular Hemoglobin Concent 34.8 g/dl RDW Standard Deviation 41.5 fL RDW Coefficient of Variation 12.9 % Platelet Count 206 K/uL Mean Platelet Volume 9.9 fL Sodium Level 138 mmol/L Potassium Level 4.4 mmol/L Chloride Level 107 mmol/L Carbon Dioxide Level 23 mmol/L Anion Gap 8.0 mmol/L Blood Urea Nitrogen 20 mg/dl Creatinine 0.94 mg/dl Est Creatinine Clear Calc Drug Dose 84.7 ml/min Estimated GFR () 98.2 Estimated GFR (Non- 84.7 BUN/Creatinine Ratio 21.3 Random Glucose 112 mg/dl Estimated Average Glucose 169 mg/dl Hemoglobin A1c 7.5 % Calcium Level 9.0 mg/dl Phosphorus Level 3.4 mg/dl Magnesium Level 1.8 mg/dl Bedside Glucose 119 mg/dl 168 mg/dl Assessment & Plan Seizure disorder. Hx Meningioma, s/p surgery Received a loading dose of IV Vimpat CT head showed no acute finding EEG showed no electrographic seizures or epileptiform discharges. Continue keppra 200mg BID and Vimpat 100mg BID Neuro on board Continue seizure precaution Continue to have a slow thought process MRI pending Diabetes type 2. Recent Hba1c 7.5 Hold metformin. Continue Lantus On insulin sliding scale Coronary artery disease Status post cardiac stent. Stable Hyperlipidemia Continue statin Gastrointestinal prophylaxis, Maalox and Mylanta as needed. DVT px on SCDs Consider starting on anticoagulant Code status full code. Consultants: Neuro Current Inpatient Medications: Current Inpatient Medications Medications (Trade) Dose Ordered Sig/Stephanie Route Start Time Stop Time Status Last Admin Dose Admin Ondansetron HCl (Zofran Inj) 4 mg Q6H PRN IV 07/08/17 23:45 08/07/17 23:44 Aspirin (Ecotrin Tab) 81 mg DAILY PO 07/09/17 09:00 08/08/17 08:59 07/09/17 10:28 81 MG Atorvastatin Calcium (Lipitor Tab) 80 mg DAILY PO 07/09/17 09:00 08/08/17 08:59 07/09/17 10:26 80 MG Enalapril Maleate (Vasotec Tab) 2.5 mg DAILY PO 07/09/17 09:00 08/08/17 08:59 07/09/17 10:28 2.5 MG EZETIMIBE (Zetia Tab) 10 mg QAM PO 07/09/17 09:00 08/08/17 08:59 07/09/17 10:26 10 MG Fluocinonide (Lidex Oint) 1 appln DAILY PRN EXT 07/08/17 23:45 08/07/17 23:44 Gemfibrozil (Lopid Tab) 600 mg BID PO 07/09/17 09:00 08/08/17 08:59 07/09/17 10:26 600 MG Insulin Glargine (Lantus Solostar Pen) 33 units HS SQ 07/09/17 21:00 08/08/17 20:59 Levetiracetam (Keppra Tab) 2,000 mg BID PO 07/09/17 09:00 08/08/17 08:59 07/09/17 10:30 2,000 MG Metoprolol Succinate (Toprol Xl Tab) 25 mg DAILY PO 07/09/17 09:00 08/08/17 08:59 07/09/17 10:31 25 MG Multivitamins (Multivitamin Tab) 1 tab DAILY PO 07/09/17 09:00 08/08/17 08:59 07/09/17 10:30 1 TAB Triamcinolone Acetonide (Kenalog 0.1% Cream) 1 appln BID PRN EXT 07/08/17 23:45 08/07/17 23:44 Clobetasol Propionate (Clobetasol Propionate Oint) 1 appln DAILY EXT 07/09/17 09:00 08/08/17 08:59 07/09/17 10:36 1 APPLN Potassium Chloride/Sodium Chloride 1,000 ml @ 100 mls/hr Q10H IV 07/09/17 01:30 07/10/17 07:29 07/09/17 11:30 100 MLS/HR Lacosamide (Vimpat Tab) 100 mg BID PO 07/09/17 09:00 08/08/17 08:59 07/09/17 10:30 100 MG Lorazepam (Ativan Inj) 1 mg ONE PRN IV 07/09/17 03:45 08/08/17 03:44 Insulin Aspart (novoLOG ASPART) SLIDING SCALE G... ACHS SC 07/09/17 16:15 08/08/17 16:14
[2017-07-09 16:05] VITALS: BP 124/71; PULSE 69; TEMP 37; O2SAT 96
[2017-07-09 19:29] VITALS: BP 113/68; PULSE 74; TEMP 36.8; O2SAT 96
[2017-07-09] MEDS ORDERED: INSULIN GLARGINE SOLOSTAR 100 UNITS/ML 3 ML PEN SQ SCH (21:00)
[2017-07-09] MEDS ORDERED: GADAVIST IV PRN (21:30)
--- NOTE | 2017-07-09 21:50 | DIAGNOSTIC IMAGING REPORT ---
MRI OF THE BRAIN COMBO CLINICAL HISTORY: Seizure. History of meningioma with resection. COMPARISON STUDY: CT of the brain dated 07/08/2017. MRI of the brain dated 02/10/2015. TECHNIQUE: MRI of the brain was performed utilizing various T1 and T2-weighted sequences in the axial, sagittal, and coronal planes. Contrast-enhanced sequences were acquired following the administration of 8.5 cc of Gadavist. The examination is performed using the seizure protocol. The examination is modestly degraded by motion artifact. FINDINGS: Brain parenchyma: Left frontal encephalomalacia is identified with facet scoliosis. This is consistent with a site of previous surgical resection. There is moderate confluent subcortical and periventricular microangiopathic disease. Mild dural thickening and enhancement along the left frontal convexity and the midline falx is nonspecific and may be related to previous surgery. No residual enhancing mass lesion is clearly identified. There is no hemorrhage or mass effect. There is no restricted diffusion to suggest acute ischemia. Perez-white matter differentiation is preserved. No extra-axial fluid collection is seen. The cerebellar tonsils are normal in configuration. The hippocampi are normal and symmetric. Ventricles, sulci, and cisterns: Normal in configuration. Pituitary and sella: Unremarkable. Intracranial vasculature: Normal flow voids are maintained at the skull base. Orbits: The bony orbits are grossly intact. Orbital contents are normal in appearance. Sinuses and mastoids: A retention cyst and mild mucosal thickening is seen in the right maxillary antrum. The remaining paranasal sinuses and the mastoid air cells are clear. Calvarium: There are postoperative changes from left-sided craniotomy. No destructive calvarial lesion is seen. Cervical cord: Partially visualized cervical spinal cord is normal in morphology and signal intensity. IMPRESSION: 1. No acute intracranial abnormality. 2. There is left frontal encephalomalacia and postoperative change consistent with previous meningioma resection. 3. There is mild dural thickening and enhancement seen along the left frontal convexity and the anterior midline falx. This is likely related to previous surgery. No definite residual enhancing mass lesion or nodularity is identified. 4. Microangiopathic change as above. Electronically signed by: Alan Fischer M.D. 07/09/2017 9:48 PM Dictated Date/Time: 07/09/2017 9:42 PM
[2017-07-10] VITALS (7 sets, daily range): BP systolic 99–123; BP diastolic 54–72; PULSE 63–74; TEMP 36.4–37.5; O2SAT 95–99
[2017-07-10] MEDS: INSULIN ASPART 100 UNITS/ML 3 ML PEN SC SCH ×2 (07:00→12:58)
[2017-07-10] MEDS: LEVETIRACETAM 500 MG TAB PO SCH (08:04)
[2017-07-10] MEDS: CLOBETASOL PROPIONATE 0.05% OINT 15 GM TUBE EXT SCH (08:05)
[2017-07-10] MEDS: LACOSAMIDE 50 MG TAB PO SCH (08:06)
[2017-07-10] MEDS: ASPIRIN 81 MG ECTAB PO SCH (08:06)
[2017-07-10] MEDS: MULTIVITAMIN TAB PO SCH (08:06)
[2017-07-10] MEDS: ATORVASTATIN 40 MG TAB PO SCH (08:06)
[2017-07-10] MEDS: METOPROLOL SUCC 25MG EXT REL TAB PO SCH (08:06)
[2017-07-10] MEDS: GEMFIBROZIL 600 MG TAB PO SCH (08:07)
[2017-07-10] MEDS: ENALAPRIL MALEATE 5 MG TAB PO SCH (08:07)
[2017-07-10] MEDS: EZETIMIBE 10MG TAB PO SCH (08:07)
--- NOTE | 2017-07-10 15:50 | Neurology Progress Notes ---
Neurology Progress Note Date of Service Jul 10, 2017. Subjective He is a 66-year-old male with PMH CAD x 2 stents, DL, DM, HTN his first seizure was secondary to meningioma and surgery following meningioma. The initial seizure was in 2014 and at that time he was diagnosed with the meningioma He had surgery for the meningioma in 2014 in [place]. He was taking Keppra and Vimpat following surgery. He was weaned off the Vimpat and then the Keppra but in 2015, he had another seizure and required intubation, he was sent to [place]. he was restarted on the 2000 mg b.i.d. of Keppra with good control until last evening. His states he was in the kitchen and had a starring episode looking up to the ceiling. he was moving his hands in an upward motion with no purpose. At that point, called EMT. In the ambulance he had a grand mal seizure and they were going to give him ativan but the seizure stopped before administration. He then had another focal seizure in the ED. He had incontinence of bladder and bit his upper lip on the left. The ED then gave a loading dose of Vimpat. states about 2 weeks ago he was diagnosed with Sheffield palsy, he was unable to whistle, lift his eye brow, or wiggle his right ear. this has mostly resolved. He was a smoker for age [age]. no Etoh use, no other drugs. states he did eat lunch with no swallowing issues. Today he is sitting in bed. states he is back to his baseline and they would like to be discharged. denies CP, SOB, abdominal pain, weakness, numbness tingling, vision changes, falls, missed doses, N, V. Objective Date Time Temp Pulse Resp B/P (MAP) Pulse Ox O2 Delivery O2 Flow Rate FiO2 07/10/17 15:34 37.5 74 16 120/69 (86) 97 07/10/17 12:00 Room Air 07/10/17 11:33 36.4 72 18 123/69 (87) 99 07/10/17 08:03 36.9 74 16 116/72 (87) 98 07/10/17 08:00 Nasal Cannula 2.0 07/10/17 04:17 36.4 63 16 99/54 (69) 97 07/10/17 04:00 97 Nasal Cannula 2.0 07/10/17 00:09 36.6 70 18 116/68 (84) 95 Room Air 07/10/17 00:01 Nasal Cannula 2.0 07/09/17 20:00 Room Air 07/09/17 19:29 36.8 74 18 113/68 (83) 96 Room Air 07/09/17 16:05 37.0 69 18 124/71 (88) 96 07/09/17 16:00 Nasal Cannula 2.0 Last 24 Hours Test 07/09/17 16:30 07/09/17 22:06 07/10/17 06:53 07/10/17 11:21 Bedside Glucose 192 mg/dl 147 mg/dl 103 mg/dl 205 mg/dl Imaging: MRI brain combo- No acute intracranial abnormality. There is left frontal encephalomalacia and postoperative change consistent with previous meningioma resection. There is mild dural thickening and enhancement seen along the left frontal convexity and the anterior midline falx. This is likely related to previous surgery. No definite residual enhancing mass lesion or nodularity is identified. 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 5/5 Current Inpatient Medications Medications (Trade) Dose Ordered Sig/Stephanie Route Start Time Stop Time Status Last Admin Dose Admin Ondansetron HCl (Zofran Inj) 4 mg Q6H PRN IV 07/08/17 23:45 08/07/17 23:44 Aspirin (Ecotrin Tab) 81 mg DAILY PO 07/09/17 09:00 08/08/17 08:59 07/10/17 08:06 81 MG Atorvastatin Calcium (Lipitor Tab) 80 mg DAILY PO 07/09/17 09:00 08/08/17 08:59 07/10/17 08:06 80 MG Enalapril Maleate (Vasotec Tab) 2.5 mg DAILY PO 07/09/17 09:00 08/08/17 08:59 07/10/17 08:07 2.5 MG EZETIMIBE (Zetia Tab) 10 mg QAM PO 07/09/17 09:00 08/08/17 08:59 07/10/17 08:07 10 MG Fluocinonide (Lidex Oint) 1 appln DAILY PRN EXT 07/08/17 23:45 08/07/17 23:44 Gemfibrozil (Lopid Tab) 600 mg BID PO 07/09/17 09:00 08/08/17 08:59 07/10/17 08:07 600 MG Insulin Glargine (Lantus Solostar Pen) 33 units HS SQ 07/09/17 21:00 08/08/17 20:59 07/09/17 22:49 33 UNITS Levetiracetam (Keppra Tab) 2,000 mg BID PO 07/09/17 09:00 08/08/17 08:59 07/10/17 08:04 2,000 MG Metoprolol Succinate (Toprol Xl Tab) 25 mg DAILY PO 07/09/17 09:00 08/08/17 08:59 07/10/17 08:06 25 MG Multivitamins (Multivitamin Tab) 1 tab DAILY PO 07/09/17 09:00 08/08/17 08:59 07/10/17 08:06 1 TAB Triamcinolone Acetonide (Kenalog 0.1% Cream) 1 appln BID PRN EXT 07/08/17 23:45 08/07/17 23:44 Clobetasol Propionate (Clobetasol Propionate Oint) 1 appln DAILY EXT 07/09/17 09:00 08/08/17 08:59 07/09/17 10:36 1 APPLN Lacosamide (Vimpat Tab) 100 mg BID PO 07/09/17 09:00 08/08/17 08:59 07/10/17 08:06 100 MG Lorazepam (Ativan Inj) 1 mg ONE PRN IV 07/09/17 03:45 08/08/17 03:44 Insulin Aspart (novoLOG ASPART) SLIDING SCALE G... ACHS SC 07/09/17 16:15 08/08/17 16:14 07/10/17 12:58 4 UNITS Gadobutrol (Gadavist) 8.5 mmol UD PRN IV 07/09/17 21:30 07/13/17 21:29 Impression 66 year old male s/p break through seizure with continued confusion Plan 1. continue Keppra 2000mg BID 2. Vimpat loaded and then restarted at 100 mg BID 3. fall and seizure precautions 4. no driving for 6 months after being seizure free- they do understand 5. EEG with no seizure spikes- normal awake and drowsy 6. concerned about ongoing confusion- longer postictal then in the past- states he is back to baseline 7. ordered MRI combo brain for continued confusion- and history of meningioma and Sheffield palsy- no acute findings 8. follow up in 2-3 weeks with neurology- Dr Anahy Bullard, neurology, or Anahy Morin PAC schedule I have seen and discussed above patient with Dr Anahy Bullard, neurology Pt seen and examined. No driving for 6 months. Will see pt in several weeks after dc, DO Bullard MD
[2017-07-10] MEDS ORDERED: LACO100T PO ×2 (16:17→16:19)
--- NOTE | 2017-07-10 16:27 | Discharge Instructions ---
Discharge Instructions Date of Service Jul 10, 2017. Admission Reason for Admission: Cad; Seizures, Generalized Convulsive; Dm Type Ii Discharge Discharge Diagnosis / Problem: SEIZURES Discharge Goals Goal(s): Decrease discomfort, Improve function, Improve disease control Activity Recommendations Activity Limitations: resume your previous activity ( TOLERATED) . Instructions / Follow-Up Instructions / Follow-Up Follow up with Dr. Reaves (Dr. Braxton colleague ) on 07/16 @ 10:05 AM Follow up with neurology between 2 to 3 weeks (Please call to schedule follow appointment) Fall and seizure precautions No driving for 6 months for now after being seizure free Continue Vimpat 100 mg twice daily Current Hospital Diet Patient's current hospital diet: AHA Diet (Heart Healthy) Discharge Diet Recommended Diet: AHA Diet (Heart Healthy) Pending Studies Studies pending at discharge: no Laboratory Results Hemoglobin A1c Test 07/09/17 06:45 Range/Units Estimated Average Glucose 169 mg/dl Hemoglobin A1c 7.5 H 4.5-5.6 % Medical Emergencies . Who to Call and When: Medical Emergencies: If at any time you feel your situation is an emergency, please call 911 immediately. . Non-Emergent Contact Non-Emergency issues call your: Primary Care Provider, Neurologist Call Non-Emergent contact if: you have any medication questions . . "Provider Documentation" section prepared by Cody Calixto. . VTE Core Measure Inpt VTE Proph given/why not?: SCD's
--- NOTE | 2017-07-10 16:50 | Progress Note ---
Medicine Progress Note Date & Time of Visit: Jul 10, 2017 at 16:49. Subjective Pt was seen and examined Lying in bed with no distress with at bedside Pt said that he feels much better said that his thought seems to get back to baseline No seizure activity noted Denies any chest pain, palpitation, dizziness and SOB Objective Last 8 Hrs Date Time Temp Pulse Resp B/P (MAP) Pulse Ox O2 Delivery O2 Flow Rate FiO2 07/10/17 16:30 37.5 74 16 97 Room Air 07/10/17 16:00 Room Air 07/10/17 15:34 37.5 74 16 120/69 (86) 97 07/10/17 12:00 Room Air 07/10/17 11:33 36.4 72 18 123/69 (87) 99 Physical Exam: General- No acute distress, slow thought process Head- atraumatic Eyes- PERRL, EOMI ENT- oropharynx clear Neck- supple, no JVD Lungs- clear to auscultation Heart- regular rhythm; no murmur Abdomen- normal bowel sounds, soft Extremities- no calf tenderness Neuro- alert, oriented x 3; PERRL, EOMI; no facial palsy Skin- warm & dry Laboratory Results: Last 24 Hours Test 07/09/17 22:06 07/10/17 06:53 07/10/17 11:21 Bedside Glucose 147 mg/dl 103 mg/dl 205 mg/dl Assessment & Plan Seizure disorder. Hx Meningioma, s/p surgery Received a loading dose of IV Vimpat CT head showed no acute finding EEG showed no electrographic seizures or epileptiform discharges. Continue keppra 200mg BID and Vimpat 100mg BID Neuro on board Continue seizure precaution Continue to have a slow thought process MRI pending 07/10 No seizure activity Continue vimpat and keppra Check EKG to monitor increase QT changes Back to baseline MRI showed no acute intracranial abnormality Follow up with neurology in 2 -3 months Pt was advised No driving for at 6 month free of seizure Diabetes type 2. Recent Hba1c 7.5 Hold metformin. Continue Lantus On insulin sliding scale Coronary artery disease Status post cardiac stent. Stable Hyperlipidemia Continue statin Gastrointestinal prophylaxis, Maalox and Mylanta as needed. DVT px on SCDs Consider starting on anticoagulant Code status full code. Consultants: Neuro Current Inpatient Medications: Current Inpatient Medications Medications (Trade) Dose Ordered Sig/Stephanie Route Start Time Stop Time Status Last Admin Dose Admin Ondansetron HCl (Zofran Inj) 4 mg Q6H PRN IV 07/08/17 23:45 08/07/17 23:44 Aspirin (Ecotrin Tab) 81 mg DAILY PO 07/09/17 09:00 08/08/17 08:59 07/10/17 08:06 81 MG Atorvastatin Calcium (Lipitor Tab) 80 mg DAILY PO 07/09/17 09:00 08/08/17 08:59 07/10/17 08:06 80 MG Enalapril Maleate (Vasotec Tab) 2.5 mg DAILY PO 07/09/17 09:00 08/08/17 08:59 07/10/17 08:07 2.5 MG EZETIMIBE (Zetia Tab) 10 mg QAM PO 07/09/17 09:00 08/08/17 08:59 07/10/17 08:07 10 MG Fluocinonide (Lidex Oint) 1 appln DAILY PRN EXT 07/08/17 23:45 08/07/17 23:44 Gemfibrozil (Lopid Tab) 600 mg BID PO 07/09/17 09:00 08/08/17 08:59 07/10/17 08:07 600 MG Insulin Glargine (Lantus Solostar Pen) 33 units HS SQ 07/09/17 21:00 08/08/17 20:59 07/09/17 22:49 33 UNITS Levetiracetam (Keppra Tab) 2,000 mg BID PO 07/09/17 09:00 08/08/17 08:59 07/10/17 08:04 2,000 MG Metoprolol Succinate (Toprol Xl Tab) 25 mg DAILY PO 07/09/17 09:00 08/08/17 08:59 07/10/17 08:06 25 MG Multivitamins (Multivitamin Tab) 1 tab DAILY PO 07/09/17 09:00 08/08/17 08:59 07/10/17 08:06 1 TAB Triamcinolone Acetonide (Kenalog 0.1% Cream) 1 appln BID PRN EXT 07/08/17 23:45 08/07/17 23:44 Clobetasol Propionate (Clobetasol Propionate Oint) 1 appln DAILY EXT 07/09/17 09:00 08/08/17 08:59 07/09/17 10:36 1 APPLN Lacosamide (Vimpat Tab) 100 mg BID PO 07/09/17 09:00 08/08/17 08:59 07/10/17 08:06 100 MG Lorazepam (Ativan Inj) 1 mg ONE PRN IV 07/09/17 03:45 08/08/17 03:44 Insulin Aspart (novoLOG ASPART) SLIDING SCALE G... ACHS SC 07/09/17 16:15 08/08/17 16:14 07/10/17 12:58 4 UNITS Gadobutrol (Gadavist) 8.5 mmol UD PRN IV 07/09/17 21:30 07/13/17 21:29
--- NOTE | 2017-07-12 19:35 | Discharge Summary ---
Discharge Summary Date of Service Jul 12, 2017. Discharge Summary Admission Date: Jul 08, 2017 at 23:41 Discharge Date: Jul 10, 2017 Discharge Disposition: Home Principal Diagnosis: SEIZURES Secondary Diagnoses/Problems: Diabetes type 2 CAD Dyslipidemia Procedures: [~ rep ct add3]] MRI OF THE BRAIN COMBO CLINICAL HISTORY: Seizure. History of meningioma with resection. COMPARISON STUDY: CT of the brain dated 07/08/2017. MRI of the brain dated 02/10/2015. TECHNIQUE: MRI of the brain was performed utilizing various T1 and T2-weighted sequences in the axial, sagittal, and coronal planes. Contrast-enhanced sequences were acquired following the administration of 8.5 cc of Gadavist. The examination is performed using the seizure protocol. The examination is modestly degraded by motion artifact. FINDINGS: Brain parenchyma: Left frontal encephalomalacia is identified with facet scoliosis. This is consistent with a site of previous surgical resection. There is moderate confluent subcortical and periventricular microangiopathic disease. Mild dural thickening and enhancement along the left frontal convexity and the midline falx is nonspecific and may be related to previous surgery. No residual enhancing mass lesion is clearly identified. There is no hemorrhage or mass effect. There is no restricted diffusion to suggest acute ischemia. Perez-white matter differentiation is preserved. No extra-axial fluid collection is seen. The cerebellar tonsils are normal in configuration. The hippocampi are normal and symmetric. Ventricles, sulci, and cisterns: Normal in configuration. Pituitary and sella: Unremarkable. Intracranial vasculature: Normal flow voids are maintained at the skull base. Orbits: The bony orbits are grossly intact. Orbital contents are normal in appearance. Sinuses and mastoids: A retention cyst and mild mucosal thickening is seen in the right maxillary antrum. The remaining paranasal sinuses and the mastoid air cells are clear. Calvarium: There are postoperative changes from left-sided craniotomy. No destructive calvarial lesion is seen. Cervical cord: Partially visualized cervical spinal cord is normal in morphology and signal intensity. IMPRESSION: 1. No acute intracranial abnormality. 2. There is left frontal encephalomalacia and postoperative change consistent with previous meningioma resection. 3. There is mild dural thickening and enhancement seen along the left frontal convexity and the anterior midline falx. This is likely related to previous surgery. No definite residual enhancing mass lesion or nodularity is identified. 4. Microangiopathic change as above. Electronically signed by: Alan Fischer M.D. 07/09/2017 9:48 PM Dictated Date/Time: 07/09/2017 9:42 PM CHEST ONE VIEW PORTABLE CLINICAL HISTORY: SEIZURE COMPARISON STUDY: 04/04/2016 FINDINGS: The cardiac and mediastinal contours remain stable. There is a poor inspiration with low lung volumes. There is no lobar consolidation. There are no significant pleural effusions. There is no overt failure.[ There is chronic left basilar interstitial thickening. IMPRESSION: Poor inspiration with hypoventilatory changes. No evidence of lobar consolidation Electronically signed by: Osman Contreras M.D. 07/08/2017 10:13 PM Dictated Date/Time: 07/08/2017 10:[address] HEAD WITHOUT CONTRAST (CT) CLINICAL HISTORY: Seizure COMPARISON STUDY: 04/04/2018 TECHNIQUE: Axial CT of the brain is performed from the vertex to the skull base. IV contrast was not administered for this examination. A dose lowering technique was utilized adhering to the principles of ALARA. CT DOSE: 614.27 mGy.cm FINDINGS: No intra or extra-axial mass lesions are visualized. There is no CT evidence of acute cortical infarction. There is no evidence of midline shift. There is no acute hemorrhage. No calvarial fractures are visualized. There are patchy white matter hypodensities likely on a small vessel basis. There are postsurgical changes of a left frontotemporal craniotomy. There is left frontal lobe encephalomalacia. 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 There is no evidence of pathologic ventricular dilatation. There is no evidence of acute sinusitis. There is a right maxillary sinus polyp/retention cyst IMPRESSION: Postsurgical changes of a left frontotemporal craniotomy. Old left frontal encephalomalacia. No acute intracranial findings. Electronically signed by: Osman Contreras M.D. 07/08/2017 10:00 PM Dictated Date/Time: 07/08/2017 9:57 PM Consultations: Neuro Medication Reconciliation New Medications: Lacosamide (Vimpat) 100 Mg Tab 100 MG PO BID for 30 Days, #60 Continued Medications: Aspirin Enteric Coated (Ecotrin Or Generic *) 81 Mg Ectab 81 MG PO DAILY, 0 Refills Atorvastatin (Lipitor) 80 Mg Tab 80 MG PO DAILY, TAB Clobetasol Propionate (Clobetasol Propionate) 45 Appln/15 Gm Oint 1 APPLN TOP DAILY for 30 Days, #60 GM 2 Refills Enalapril Maleate (Vasotec) 2.5 Mg Tab 2.5 MG PO DAILY, TAB Ezetimibe (Zetia) 10 Mg Tab 10 MG PO QAM, 0 Refills Fluocinonide 0.05% (Lidex 0.05%) Oint 1 APPLN EXT UD Gemfibrozil (Lopid) 600 Mg Tab 600 MG PO BID, 0 Refills TAKE 30 MINUTES BEFORE MORNING AND EVENING MEALS. Insulin Glargine (Lantus Solostar Pen) 100 Unit/ Inj 33 UNIT SQ HS, ML 3 Refills Insulin Lispro (Human) (Humalog Kwikpen) 100 Unit/Ml Inj 8 UNITS INJ UD 8 units before lunch 12 units before supper along with sliding scale max daily dose 22 units Levetiracetam (Keppra) 1,000 Mg Tab 2000 MG PO BID, TAB Metformin HCL (Glucophage *) 1,000 Mg Tab 1000 MG PO BID, 0 Refills Metoprolol Succinate (Toprol Xl) 50 Mg Tab 25 MG PO DAILY, TAB Multivitamin (Multivitamin) Tab 1 TAB PO DAILY, 0 Refills Sildenafil Citrate (Viagra) 25 Mg Tab 25 MG PO UD, #18 Triamcinolone Acet 0.1% (Aristocort 0.1%) Cr 1 APPLN TOP UD Apply up to twice daily for spots on arms as needed [Fiber Chews] () 2 TABS PO DAILY Admission Information HPI (per Admitting provider): CHIEF COMPLAINT: Seizures since this evening. 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 Apparently has had initial seizures sometime in 2014 and at that time he was diagnosed to have meningioma of the left frontal lobe. He had surgery for the meningioma in 2014 in [place]. He was taking Keppra and Vimpat following surgery. The Vimpat was taken and then Keppra was in the process of weaning off. Sometime in 2015, he had another seizure and required intubation, he was sent to [place]. Following that, he is back on 2000 mg b.i.d. of Keppra and until this evening he was doing pretty good. In the evening, he was in the kitchen, he was with his , and noticed that he was looking at the ceiling like a vacant look and he was moving his hands upward without any purposeful movement and he was noted to be dysphasic as well. At that point, called EMT. In the process of coming to the Emergency Room, in the ambulance he had a grand mal seizure which was treated with intravenous Ativan, and then in the ER, he had another focal seizure as well. His CAT scan and other labs remain unremarkable. So the case was discussed with on-call neurologist by the ER physician and was advised to give a loading dose of Vimpat and the patient was admitted to telemetry unit for continuation of care. The patient remains in postictal state in the Emergency Room. Physical Exam (per Admitting): PHYSICAL EXAMINATION: GENERAL: In the Emergency Room, he was in postictal state. He was moving all the limbs. He was trying to speak but not making any sense when he was speaking. He was not following any commands. HEENT: Unremarkable. VITAL SIGNS: Temperature, afebrile; pulse 119; blood pressure 130/77; saturation 98% on 3 liters nasal cannula. HEENT: Unremarkable. NECK: Supple. No JVD, no bruit. CHEST: Clear to auscultation bilaterally. HEART: S1, S2, regular. ABDOMEN: Soft, benign, nontender. No organomegaly. Bowel sounds present. EXTREMITIES: Negative. CENTRAL NERVOUS SYSTEM: Not really examined due to postictal state. Hospital Course Seizure disorder. Hx Meningioma, s/p surgery Received a loading dose of IV Vimpat CT head showed no acute finding EEG showed no electrographic seizures or epileptiform discharges. Continue keppra 200mg BID and Vimpat 100mg BID Neuro on board Continue seizure precaution Continue to have a slow thought process MRI pending 07/10 No seizure activity Continue vimpat and keppra Check EKG to monitor increase QT changes Back to baseline MRI showed no acute intracranial abnormality Follow up with neurology in 2 -3 months Pt was advised No driving for at 6 month free of seizure Diabetes type 2. Recent Hba1c 7.5 Hold metformin. Continue Lantus On insulin sliding scale Coronary artery disease Status post cardiac stent. Stable Hyperlipidemia Continue statin Gastrointestinal prophylaxis, Maalox and Mylanta as needed. DVT px on SCDs Consider starting on anticoagulant Code status full code. Total time spent on discharge = 35 minutes This includes examination of the patient, discharge planning, medication reconciliation, and communication with other providers. Discharge Instructions Discharge Instructions Date of Service Jul 10, 2017. Admission Reason for Admission: Cad; Seizures, Generalized Convulsive; Dm Type Ii Discharge Discharge Diagnosis / Problem: SEIZURES Discharge Goals Goal(s): Decrease discomfort, Improve function, Improve disease control Activity Recommendations Activity Limitations: resume your previous activity ( TOLERATED) . Instructions / Follow-Up Instructions / Follow-Up Follow up with Dr. Reaves (Dr. Braxton colleague ) on 07/16 @ 10:05 AM Follow up with neurology between 2 to 3 weeks (Please call to schedule follow appointment) Fall and seizure precautions No driving for 6 months for now after being seizure free Continue Vimpat 100 mg twice daily Current Hospital Diet Patient's current hospital diet: AHA Diet (Heart Healthy) Discharge Diet Recommended Diet: AHA Diet (Heart Healthy) Pending Studies Studies pending at discharge: no Laboratory Results Hemoglobin A1c Test 07/09/17 06:45 Range/Units Estimated Average Glucose 169 mg/dl Hemoglobin A1c 7.5 H 4.5-5.6 % Medical Emergencies . Who to Call and When: Medical Emergencies: If at any time you feel your situation is an emergency, please call 911 immediately. . Non-Emergent Contact Non-Emergency issues call your: Primary Care Provider, Neurologist Call Non-Emergent contact if: you have any medication questions . . "Provider Documentation" section prepared by Cody Calixto. . VTE Core Measure Inpt VTE Proph given/why not?: SCD's Additional Copies To Jessie REAVES M.D. Doberstein, Timothy F., MD
== END 2017-07-10 17:21 | disposition home or self-care (01) | DRG 101 ==
LOC: EDBD 21:34 → C.EDB 21:35 → C.2T 23:41 → ENRESERV 07-09 00:15
PROVIDERS: ADMIT Internal Medicine; ATTEND Internal Medicine
DX: G40.89 Other seizures (principal); Z86.011 Personal history of benign neoplasm of the brain; Z98.890 Other specified postprocedural states; E11.9 Type 2 diabetes mellitus without complications; I10 Essential (primary) hypertension; I25.10 Atherosclerotic heart disease of native coronary artery without angina pectoris; E78.5 Hyperlipidemia, unspecified; Z86.69 Personal history of other diseases of the nervous system and sense organs; Z95.5 Presence of coronary angioplasty implant and graft; Z87.442 Personal history of urinary calculi; Z87.891 Personal history of nicotine dependence; Z79.4 Long term (current) use of insulin; Z79.82 Long term (current) use of aspirin; Z79.84 Long term (current) use of oral hypoglycemic drugs; Z79.899 Other long term (current) drug therapy; Z88.1 Allergy status to other antibiotic agents; Z88.2 Allergy status to sulfonamides; Z82.0 Family history of epilepsy and other diseases of the nervous system; Z83.49 Family history of other endocrine, nutritional and metabolic diseases

== ENCOUNTER 2019-02-04 11:06 | Inpatient (IN) ==
--- OUTSIDE RECORDS SUMMARY | 2019-02-04 11:08 | External Medical Summary | Continuity of Care Document ---
:1950 Author Name Any Staton Address Unavailable Unavailable , Care Team Providers Name Role Phone Laurita DO Unavailable [email or web address], NO Unavailable Unavailable Problems Active medical history not documented Allergies and Adverse Reactions Allergy history not documented Medications Medications not documented Procedures Procedures not documented Immunizations Immunizations not documented Plan of Treatment Planned Observations Planned Goals not documented Results No Known Results Results not documented
[2019-02-04 11:54] LABS: Hematocrit (blood only) 36.2 % (42-52); Hemoglobin 12.8 g/dL (14.0-18.0); Mean Corpuscular Hemoglobin 31.3 pg (25-34); Mean Corpuscular Hgb Conc 35.4 g/dL (32-36); Mean Corpuscular Volume 88.5 fL (80-100); Mean Platelet Volume 9.4 fL (7.4-10.4); Platelet Count 263 K/uL (130-400); RDW Coefficient of Variation 12.7 % (11.5-14.5); RDW Standard Deviation 40.8 fL (36.4-46.3); Red Blood Count 4.09 M/uL (4.7-6.1); White Blood Count 7.63 K/uL (4.8-10.8)
[2019-02-04 12:07] LABS: Appearance Urine Clear (Clear); Bacteria Urine Automated Negative (Negative); Bilirubin Urine Negative (Negative); Blood Urine 2+ (Negative); Cast Urine Automated 0 /lpf (0-5); Color Urine Yellow; Epithelial Cell Urine Auto 0-5 /lpf (0-5); Glucose Urine UA Negative (Negative); Ketones Urine Negative (Negative); Leukocyte Esterase Urine Trace (Negative); Nitrite Urine Negative (Negative); Protein Urine Negative (Negative); RBC Urine Automated 0-4 /hpf (0-4); Specific Gravity Urine 1.014 (1.000-1.030); Urobilinogen Urine Negative (Negative)
[2019-02-04 12:10] LABS: BUN Creatinine Ratio 13.4 (10-20); Creatinine Clr Calc Pharmacy 45.4 ml/min; Est GFR (African American) 46.3; Potassium 4.2 mmol/L (3.5-5.1)
[2019-02-04] MEDS ORDERED: KETOROLAC TROMETHAMINE 15 MG/ML VIAL IV STA (12:12)
[2019-02-04] MEDS ORDERED: SODIUM CHLORIDE 0.9% 1000ML 1,000 ML IV ONE (12:17)
--- NOTE | 2019-02-04 13:00 | CT Scan Report ---
CT abd pelvis wo con CLINICAL HISTORY: 68 years-old Male presenting with R CVA tenderness hx of kidney stones. TECHNIQUE: Multidetector CT of the abdomen and pelvis was performed without the use of intravenous co ntrast. IV contrast: None. One or more dose lowering techniques were used consistent with the princip les of ALARA (as low as reasonably achievable), including automatic exposure control, mA or kV adjust ment to individual patient size, and/or use of iterative reconstruction. COMPARISON: None. CT DOSE (mGy.cm): The estimated cumulative dose is 624.39 mGy.cm. FINDINGS: French Drawer topogram: Orthopedic hardware. Lung bases: Normal heart size. Coronary artery and aortic valve calcification. No pericardial or pleu ral effusion. Extensive reticular opacities at the lung bases left greater than right. Interlobular s eptal thickening. Mosaic attenuation. Liver: Normal morphology. Density borderline for hepatic steatosis. Biliary: No gross biliary ductal dilatation allowing for noncontrast technique. Normal gallbladder. Pancreas: Normal noncontrast appearance. Spleen: Normal noncontrast appearance. Adrenal glands: Normal noncontrast appearance. Kidneys and ureters: Bilateral nephrolithiasis with a greater stone burden on the left. The largest l eft renal calculus measures 10 mm. No left hydronephrosis, however mild right pelvocaliectasis and di stention of the right ureter to the level of a proximal right ureteral obstructing 8 mm calculus. Mil d periureteral fat stranding proximally. There is also a mid to distal right ureteral calculus measur ing 6 mm (series 3 image 297). The distalmost right ureter is decompressed. Left ureter nondistended. Bladder: Circumferential bladder wall thickening. No bladder calculi. Pelvic organs: Prostate enlargement likely secondary to benign prostatic hyperplasia. Bowel: Normal appendix. No bowel obstruction. Peritoneal cavity: No free fluid or intraperitoneal gas. Lymph nodes: Few prominent lymph nodes in the portacaval and peripancreatic regions, nonspecific. Vasculature: Atherosclerosis of the normal caliber abdominal aorta. Abdominal wall: Normal. Musculoskeletal: Degenerative changes of the spine. Posterior fusion hardware with laminectomy defect s in the lumbar spine. Incidental note made of sacral dural ectasia. IMPRESSION: 1. Obstructing 8 mm calculus in the proximal right ureter with mild right hydroureteronephrosis. Add itional partially obstructing 6 mm in the right mid to distal ureter. 2. Bilateral nephrolithiasis. 3. Chronic bladder outlet obstruction secondary to prostatomegaly. 4. Chronic lung disease at the lung bases. Electronically signed by: Guru Gandhi M.D. 02/04/2019 12:59 PM
--- NOTE | 2019-02-04 13:39 | History & Physical Report ---
Date of Service February 04, 2019 Assessment & Plan (1) Ureteral stone with hydronephrosis: This is a 68yo M with a PMH of kidney stones, seizure disorder, h/o brain mass s/p resection, DM II, CAD (s/p stent) and other medical problems listed below who presents with R flank pain x 1 week and was found to have right obstructive ureteral stone with mild hydronephrosis. -Afebrile and hemodynamically stable with R flank pain x 1 week -Ct abd/pelvis with obstructing 8 mm calculus in the proximal right ureter with mild right hydroureteronephrosis. Additional partially obstructing 6 mm in the right mid to distal ureter -Urology aware. Procedure planned for tomorrow. NPO after midnight -IV fluids, pain control, antiemetics (2) Acute kidney injury: In setting of obstructing R ureteral stones with mild hydronephrosis -Cr elevated at 1.73 (baseline Cr ~0.9) -Hold enalapril. 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 No seizure since 2017 -Continue Keppra, Vimpat (5) CAD (coronary artery disease): H/o stent -Continue aspirin, statin (6) Hypertension: Normotensive -Continue Toprol DVT Ppx: SCDs for procedure tomorrow Code status: FULL PCP: [facility] Dispo: Admit to med surg. Plan to return home once medically stable. Patient seen in collaboration with Dr. Kennedy. Please see addendum. History of Present Illness Chief Complaint: R flank pain Primary Care Provider: Giovanny Braxton MD This is a 68yo M with a PMH of kidney stones, seizure disorder, h/o brain mass s/p resection, DM II, CAD (s/p stent) and other medical problems listed below who presents with R flank pain x 1 week. Pain is sharp and stabbing and has progressed over the past week. Associated with nausea and subjective fever. Denies nausea, dysuria or hematuria. Has significant history of kidney stones since the and usually stones pass on their own. Patient has been drinking a lot of water in the hopes of passing stone. Has undergone lithotripsy once in . Patient is afebrile and hemodynamically stable. CT abd/pelvis with obstructing 8 mm calculus in the proximal right ureter with mild right hydroureteronephrosis. Additional partially obstructing 6 mm in the right mid to distal ureter. ED provider spoke with urology, who will plan on intervention tomorrow. When examined, patient comfortable and without pain. Denies chills, headache, lightheadedness, visual changes, chest pain, palpitations, shortness of breath, abdominal pain, vomiting, constipation or diarrhea. Allergies Allergy/AdvReac Type Severity Reaction Status Date / Time Bactrim Allergy Intermediate RASH Verified 07/08/17 22:07 sulfamethoxazole Allergy Intermediate RASH Verified 02/04/19 13:08 trimethoprim Allergy Intermediate RASH Verified 02/04/19 13:08 ofloxacin Allergy Unknown RASH Unverified 02/04/19 13:08 Home Medications Home Medications Medication Instructions Recorded Confirmed Type aspirin [Aspirin Low Dose] 81 mg PO DAILY #0 12/28/10 02/04/19 History ezetimibe [Zetia] 10 mg PO QAM #0 12/28/10 02/04/19 History multivitamin 1 tab PO DAILY #0 12/28/10 02/04/19 History metformin [Glucophage] 1,000 mg PO BID #0 01/18/11 02/04/19 History triamcinolone acetonide 1 applic TOPICAL UD #0 08/24/11 02/04/19 History atorvastatin [Lipitor] 80 mg PO DAILY #0 tab 02/10/15 02/04/19 History enalapril maleate [Vasotec] 2.5 mg PO DAILY #0 tab 02/10/15 02/04/19 History insulin glargine [Lantus Solostar 32 - 33 unit SUBCUT HS #0 ml 02/10/15 02/04/19 History U-100 Insulin] insulin lispro 8 - 12 unit SUBCUT BIDM #0 02/10/15 02/04/19 History metoprolol succinate [Toprol XL] 25 mg PO DAILY #0 tab 02/10/15 02/04/19 History levetiracetam [Keppra] 2,000 mg PO BID #0 tab 04/04/16 02/04/19 History sildenafil [Viagra] 50 mg PO UD #18 04/04/16 02/04/19 History fenofibrate nanocrystallized 145 mg PO DAILY 02/04/19 02/04/19 History lacosamide [Vimpat] 100 mg PO BID 02/04/19 02/04/19 History Past Med/Surg History Medical History Brain mass (Resolved) Dyslipidemia (Chronic) Hypertension (Chronic) CAD (coronary artery disease) (Chronic) Seizure disorder (Chronic) Type 2 diabetes mellitus (Chronic) Kidney stones Surgical History Status post coronary artery stent placement (Chronic) Status post cardiac catheterization (Chronic) Status post lumbar surgery (Chronic) Family History Other Alzheimer disease Social History Preferred Language: [place]e Communication Ability: Effective Enrollment Consultant Required: No Beliefs That Will Affect Care: None marital status: Current Living Situation: Family current occupational status: retired Other Information That Helps Us Care for You: No Feels Safe at Home: Yes Safety Concerns: Feels Safe At This Time Smoking Status: Former smoker Hx Alcohol Use: Yes Alcohol type: wine and hard liquor Alcohol Intake Frequency: Rarely Hx Substance Use: No Review of Systems Review of Systems: At least ten systems reviewed and negative except as noted in the HPI. Physical Exam Physical Exam: General Appearance: WD/WN, no apparent distress, resting comfortably Head: normocephalic, atraumatic Eyes: normal inspection, PERRL, EOMI ENT: hearing grossly normal, pharynx normal (moist mucous membranes) Neck: supple, no JVD, no adenopathy Respiratory/Chest: lungs clear to auscultation. No wheezes, rales or rhonchi. No respiratory distress or accessory muscle use Cardiovascular: regular rate, rhythm, no murmur, normal peripheral pulses Abdomen/GI: normal bowel sounds, soft, non-tender to palpation : R flank and suprapubic pain. No CVA tenderness Extremities/Musculoskelatal: normal inspection, no calf tenderness, normal capillary refill, no pedal edema Neurologic/Psych: alert, normal mood/affect, oriented x 3 Skin: normal color, warm/dry Results & Data Vital Signs (Past 12 Hours) Vital Signs Temp Pulse Pulse Resp BP Pulse Ox 02/04/19 13:07 69 18 135/74 95 02/04/19 11:15 36.6 C 74 16 97 Laboratory Results Short CBC 02/04/19 Range/Units 11:40 WBC 7.63 (4.8-10.8) K/uL Hgb 12.8 L (14.0-18.0) g/dL Hct 36.2 L (42-52) % Plt Count 263 (130-400) K/uL BMP 02/04/19 11:40 Sodium 138 Potassium 4.2 Chloride 108 H Carbon Dioxide 24 BUN 23 H Creatinine 1.73 H Glucose 101 H Calcium 10.0 Urine 02/04/19 Range/Units 11:40 Urine Color Yellow Urine Appearance Clear (Clear) Urine pH 5.0 (4.5-7.5) Ur Specific [place] 1.014 (1.000-1.030) Urine Protein Negative (Negative) Urine Glucose (UA) Negative (Negative) Diagnostic Findings CT abd/pelvis: 1. Obstructing 8 mm calculus in the proximal right ureter with mild right hydroureteronephrosis. Additional partially obstructing 6 mm in the right mid to distal ureter. 2. Bilateral nephrolithiasis. 3. Chronic bladder outlet obstruction secondary to prostatomegaly. 4. Chronic lung disease at the lung bases. Supervising Physician Co-Signing Physician Notes Attending addendum: Patient was seen and examined in medical floor He has history of nephrolithiasis and was admitted with right ureteral obstruction with mild hydronephrosis He complains of pain but denies any fever and/or chills He is awaiting cystoscopy tomorrow On examination No apparent distress at rest though complains some pain in the right lower abdomen and right flank Hemodynamically stable Chest-clear to auscultate bilaterally Heart-S1-S2, regular Abdomen-soft, tender right lower quadrant right flank, no tenderness in the right renal angle Extremities-negative for any edema Admission labs and imaging studies reviewed Has obstructing 8 mm calculus in the proximal right ureter with mild right hydroureteronephrosis. Has an additional partially obstructing 6 mm in the right mid to distal ureter Renal nephrolithiasis Chronic bladder outlet obstruction secondary to prostatomegaly Chronic lung disease at the lung bases Agree with assessment and plan as outlined above by ELLIS Goff Dr
[2019-02-04] MEDS ORDERED: GLUCAGON FOR INJ 1 MG VIAL SQ PRN (14:26)
[2019-02-04] MEDS ORDERED: GLUCOSE 40% GEL 15 GM TUBE PO PRN (14:26)
[2019-02-04] MEDS ORDERED: DEXTROSE 50% 50 ML SYRINGE IV PRN (14:26)
[2019-02-04] MEDS ORDERED: CARBOHYDRATES FOR HYPOGLYCEMIA PO PRN (14:26)
[2019-02-04] MEDS ORDERED: GLUCOSE 10 TABS/TUBE PO PRN (14:26)
[2019-02-04] MEDS ORDERED: ONDANSETRON INJ 2 MG/ML 2 ML VIAL IV PRN (14:38)
[2019-02-04] MEDS ORDERED: POLYETHYLENE (MIRALAX) 17 GM PACK PO PRN (14:38)
[2019-02-04] MEDS ORDERED: ACETAMINOPHEN 325 MG TAB PO PRN (14:38)
[2019-02-04] MEDS ORDERED: SODIUM CHLORIDE 0.9% 1000ML 1,000 ML IV SCH (15:30)
[2019-02-04] MEDS: INSULIN ASPART 100 UNITS/ML 3 ML PEN SC SCH ×2 (18:35→20:40)
[2019-02-04] MEDS: MoRPHine SULFATE 4 MG/ML 1 ML CARP\\VIAL IV PRN (18:42)
--- NOTE | 2019-02-04 19:05 | Emergency Department Note ---
Entered by Dolly Gonzalez acting as a scribe for History of Present Illness General Chief complaint: Kidney Stone Stated complaint: KIDNEY STONE Time Seen by Provider: 02/04/19 12:03 Source: patient History of Present Illness Onset (ago): week(s) 1 Location: right (flank) Radiation: abdomen Severity: similar to prior episodes (kidney stones) Pain Consistency: + other (episode) Maximum Pain Intensity: 9 Quality: + other (kidney stone) Relieved By: not by medication (Motrin) Associated symptoms: + denies other symptoms (hematuria, difficulty urinating, burning with urination) and + nausea/vomiting (nausea) The patient is a 68 year old male who presents to the Emergency Room with complaints of an episode of a kidney stone starting a week ago. The patient states that he has a history of 15 kidney stones. He states that in the past he takes Motrin for his pain and he eventually passes them on his own so he doesnt come in for them. He states that he came in for this one because it has been a week of pain and it is getting worse. He reports that it did start in his right mid-back and traveled down, around and into his right lower abdomen where it is currently sitting. The patient complains of nausea. The patient denies hematuria, difficulty urinating, and burning with urination. Home Medications Home Medications Medication Instructions Recorded Confirmed Type aspirin [Aspirin Low Dose] 81 mg PO DAILY #0 12/28/10 02/04/19 History ezetimibe [Zetia] 10 mg PO QAM #0 12/28/10 02/04/19 History multivitamin 1 tab PO DAILY #0 12/28/10 02/04/19 History metformin [Glucophage] 1,000 mg PO BID #0 01/18/11 02/04/19 History triamcinolone acetonide 1 applic TOPICAL UD #0 08/24/11 02/04/19 History atorvastatin [Lipitor] 80 mg PO DAILY #0 tab 02/10/15 02/04/19 History enalapril maleate [Vasotec] 2.5 mg PO DAILY #0 tab 02/10/15 02/04/19 History insulin glargine [Lantus Solostar 32 - 33 unit SUBCUT HS #0 ml 02/10/15 02/04/19 History U-100 Insulin] insulin lispro 8 - 12 unit SUBCUT BIDM #0 02/10/15 02/04/19 History metoprolol succinate [Toprol XL] 25 mg PO DAILY #0 tab 02/10/15 02/04/19 History levetiracetam [Keppra] 2,000 mg PO BID #0 tab 04/04/16 02/04/19 History sildenafil [Viagra] 50 mg PO UD #18 04/04/16 02/04/19 History fenofibrate nanocrystallized 145 mg PO DAILY 02/04/19 02/04/19 History lacosamide [Vimpat] 100 mg PO BID 02/04/19 02/04/19 History Allergies Allergy/AdvReac Type Severity Reaction Status Date / Time Bactrim Allergy Intermediate RASH Verified 07/08/17 22:07 sulfamethoxazole Allergy Intermediate RASH Verified 02/04/19 13:08 trimethoprim Allergy Intermediate RASH Verified 02/04/19 13:08 ofloxacin Allergy Unknown RASH Unverified 02/04/19 13:08 Past Med/Surg History Medical History Brain mass (Resolved) Dyslipidemia (Chronic) Hypertension (Chronic) CAD (coronary artery disease) (Chronic) Seizure disorder (Chronic) Type 2 diabetes mellitus (Chronic) Kidney stones Surgical History Status post coronary artery stent placement (Chronic) Status post cardiac catheterization (Chronic) Status post lumbar surgery (Chronic) Family History Other Alzheimer disease Social History Preferred Language: Mongolian Communication Ability: Effective [employer] Analyst Required: No Beliefs That Will Affect Care: None marital status: Current Living Situation: Family current occupational status: retired Other Information That Helps Us Care for You: No Feels Safe at Home: Yes Safety Concerns: Feels Safe At This Time Smoking Status: Former smoker Hx Alcohol Use: Yes Alcohol type: wine and hard liquor Alcohol Intake Frequency: Rarely Hx Substance Use: No Review of Systems See HPI for pertinent positives & negatives. and A total of 10 systems reviewed and were otherwise negative Physical Exam Vital Signs Vital Signs - 24 hr 02/04/19 11:15 02/04/19 13:07 Temperature 36.6 C Temperature Source Oral Sepsis Recent Fever Within 48 Hours No Sepsis Action Taken by Nursing No Action Required Pulse Rate 74 Pulse Rate [Right Finger] 69 Pulse Rhythm Regular Pulse Strength Normal Respiratory Rate 16 18 Respiratory Effort / Characteristics Non-Labored Non-Labored Spontaneous Respiratory Depth Normal Normal Respiratory Pattern Regular Regular Blood Pressure [Right Arm] 135/74 Blood Pressure Mean [Right Arm] 94 Blood Pressure Position [Right Arm] Lying Pulse Oximetry 97 95 Oxygen Delivery Method Room Air Room Air GENERAL: He is oriented to person, place, and time. He appears well-developed and well-nourished. He does not appear distressed. HENT: Exam performed. - Head: Normocephalic and atraumatic. - Right Ear: External ear normal. No mastoid tenderness. - Left Ear: External ear normal. No mastoid tenderness. - Mouth/Throat: The oropharynx is clear and moist. No trismus in the jaw. No dental abscesses or uvula swelling. No oropharyngeal exudate or tonsillar abscesses. EYES: Conjunctivae and EOM are normal. Pupils are equal, round, and reactive to light. Right eye exhibits no discharge. Left eye exhibits no discharge. No scleral icterus. NECK: Normal range of motion. Neck supple. No JVD present. No spinous process tenderness present. No carotid bruit present. No rigidity. No tracheal deviation and normal range of motion present. No Brudzinski's sign and no Kernig's sign noted. CV: Normal rate, regular rhythm, normal heart sounds and intact distal pulses. There is no peripheral edema. Palpable radial pulses bue. PULM/CHEST: Effort normal and breath sounds normal. No respiratory distress. No stridor. He has no wheezes. He has no rales. - Chest Wall: He exhibits no tenderness. ABD: The abdomen is soft. Bowel sounds are normal. He has no distension. No mass is present. There is no tenderness. There is no rebound, no guarding, no Cowart's sign and no tenderness at McBurney's point. Rovsig negative. MUSC/SKEL: Normal range of motion. Right sided CVA tenderness. There is no peripheral edema or deformity. LYMPH: No cervical adenopathy. NEURO: He is alert and oriented to person, place, and time. He has normal strength. No cranial nerve deficit or sensory deficit. Coordination and gait normal. GCS eye subscore is 4. GCS verbal subscore is 5. GCS motor subscore is 6. Cerebellar tests wnl. SKIN: Skin is warm and dry. He is not diaphoretic. PSYCH: He has a normal mood and affect. Behavior is normal. Judgment and thought content normal. Course 1209: Past medical records reviewed. The patient was evaluated in room C5. A complete history and physical exam was performed. 1319: I discussed the patient's case with ELLIS [facility]. She states that Oselinksi will be on consult and to admit to medicine. 1329: Vital signs stable. Labs are within normal limits. CT shows an 8 mm and a 6 mm obstructing stones. I discussed the patient's case with urology who states that the patient should be admitted to medicine and they will remove the stones tomorrow. The patient was [facility] to [facility]. I discussed the patient[facility] They will evaluate the patient for further management. Consultations Consultation #1: I discussed the patient's case with ELLIS [facility]. She states that Oselinksi will be on consult and to admit to medicine. Time: 13:19 Consultation #2: I discussed the patient's case with E[facility]. They will evaluate the patient for further management. Time: 13:28 Administered Medications Sodium Chloride (Nss 1000ml) 1,000 mls @ 85 mls/hr IV .[id number] [facility] Stop: 02/05/19 03:15 Last Admin: 02/04/19 17:06 Dose: 85 mls/hr Documented by: [id number] Insulin Aspart (Novolog Flexpen) 0 units SC ACHS SEA Stop: 03/06/19 16:29 Last Admin: 02/04/19 18:35 Dose: 5 units Documented by: [id number] Cosigned by: [id number] Morphine Sulfate (Morphine Sulfate) 4 mg IV Q4H PRN PRN Reason: Pain Stop: 02/18/19 17:41 Last Admin: 02/04/19 18:42 Dose: 4 mg Documented by: [id number] Discontinued Medications Sodium Chloride (Nss 1000ml) 1,000 mls @ 999 mls/hr IV .[id number] ONE Stop: 02/04/19 13:17 Last Infusion: 02/04/19 14:27 Dose: 0 mls/hr Documented by: [id number] Admin: 02/04/19 12:28 Dose: 999 mls/hr Documented by: [id number] Ketorolac Tromethamine (Toradol) 15 mg IV NOW STA Stop: 02/04/19 12:13 Last Admin: 02/04/19 12:28 Dose: 15 mg Documented by: [id number] Medical Decision Making Medical Records Attestation: I reviewed the patient's medical records. Home Medications Current Medication List: was personally reviewed by me Laboratory Data Attestation: I reviewed the patient's lab results. Result diagrams: 02/04/19 11:40 02/04/19 11:40 Lab Results 02/04/19 02/04/19 02/04/19 Range/Units 11:40 11:40 11:40 WBC 7.63 (4.8-10.8) K/uL RBC 4.09 L (4.7-6.1) M/uL Hgb 12.8 L (14.0-18.0) g/dL Hct 36.2 L (42-52) % MCV 88.5 (80-100) fL MCH 31.3 (25-34) pg MCHC 35.4 (32-36) g/dL RDW Std Deviation 40.8 (36.4-46.3) fL RDW Coeff of Concha 12.7 (11.5-14.5) % Plt Count 263 (130-400) K/uL MPV 9.4 (7.4-10.4) fL Sodium 138 (136-145) mmol/L Potassium 4.2 (3.5-5.1) mmol/L Chloride 108 H (98-107) mmol/L Carbon Dioxide 24 (21-32) mmol/L Anion Gap 6.0 (3-11) BUN 23 H (7-18) mg/dl Creatinine 1.73 H (0.6-1.4) mg/dl Est Cr Clr Drug Dosing 45.4 ml/min Est GFR ( Amer) 46.3 Est GFR (Non-Af Amer) 40.0 BUN/Creatinine Ratio 13.4 (10-20) Glucose 101 H (70-99) mg/dl Calcium 10.0 (8.5-10.1) mg/dl Urine Color Yellow Urine Appearance Clear (Clear) Urine pH 5.0 (4.5-7.5) Ur Specific [place] 1.014 (1.000-1.030) Urine Protein Negative (Negative) Urine Glucose (UA) Negative (Negative) Urine Ketones Negative (Negative) Urine Blood 2+ H (Negative) Urine Nitrite Negative (Negative) Urine Bilirubin Negative (Negative) Urine Urobilinogen Negative (Negative) Ur Leukocyte Esterase Trace H (Negative) Urine WBC (Auto) 1-5 (0-5) /hpf Urine RBC (Auto) 0-4 (0-4) /hpf U Hyaline Cast (Auto) 0 (0-5) /lpf U Epithel Cells (Auto) 0-5 (0-5) /lpf Urine Bacteria (Auto) Negative (Negative) Hepatitis C Ab Screen (Neg) 02/04/19 Range/Units 11:40 WBC (4.8-10.8) K/uL RBC (4.7-6.1) M/uL Hgb (14.0-18.0) g/dL Hct (42-52) % MCV (80-100) fL MCH (25-34) pg MCHC (32-36) g/dL RDW Std Deviation (36.4-46.3) fL RDW Coeff of Concha (11.5-14.5) % Plt Count (130-400) K/uL MPV (7.4-10.4) fL Sodium (136-145) mmol/L Potassium (3.5-5.1) mmol/L Chloride (98-107) mmol/L Carbon Dioxide (21-32) mmol/L Anion Gap (3-11) BUN (7-18) mg/dl Creatinine (0.6-1.4) mg/dl Est Cr Clr Drug Dosing ml/min Est GFR ( Amer) Est GFR (Non-Af Amer) BUN/Creatinine Ratio (10-20) Glucose (70-99) mg/dl Calcium (8.5-10.1) mg/dl Urine Color Urine Appearance (Clear) Urine pH (4.5-7.5) Ur Specific [place] (1.000-1.030) Urine Protein (Negative) Urine Glucose (UA) (Negative) Urine Ketones (Negative) Urine Blood (Negative) Urine Nitrite (Negative) Urine Bilirubin (Negative) Urine Urobilinogen (Negative) Ur Leukocyte Esterase (Negative) Urine WBC (Auto) (0-5) /hpf Urine RBC (Auto) (0-4) /hpf U Hyaline Cast (Auto) (0-5) /lpf U Epithel Cells (Auto) (0-5) /lpf Urine Bacteria (Auto) (Negative) Hepatitis C Ab Screen Neg (Neg) Imaging Data Radiologist's Impression: Radiology results as stated below per my review and the radiologist's interpretation: CT abd pelvis wo con CLINICAL HISTORY: 68 years-old Male presenting with R CVA tenderness hx of kidney stones. TECHNIQUE: Multidetector CT of the abdomen and pelvis was performed without the use of intravenous contrast. IV contrast: None. One or more dose lowering techniques were used consistent with the principles of ALARA (as low as reasonably achievable), including automatic exposure control, mA or kV adjustment to individual patient size, and/or use of iterative reconstruction. COMPARISON: None. CT DOSE (mGy.cm): The estimated cumulative dose is 624.39 mGy.cm. 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 Lung bases: Normal heart size. Coronary artery and aortic valve calcification. No pericardial or pleural effusion. Extensive reticular opacities at the lung bases left greater than right. Interlobular septal thickening. Mosaic attenuation. Liver: Normal morphology. Density borderline for hepatic steatosis. Biliary: No gross biliary ductal dilatation allowing for noncontrast technique. Normal gallbladder. Pancreas: Normal noncontrast appearance. Spleen: Normal noncontrast appearance. Adrenal glands: Normal noncontrast appearance. Kidneys and ureters: Bilateral nephrolithiasis with a greater stone burden on the left. The largest left renal calculus measures 10 mm. No left hydronephrosis, however mild right pelvocaliectasis and distention of the right ureter to the level of a proximal right ureteral obstructing 8 mm calculus. Mild periureteral fat stranding proximally. There is also a mid to distal right ureteral calculus measuring 6 mm (series 3 image 297). The distalmost right ureter is decompressed. Left ureter nondistended. Bladder: Circumferential bladder wall thickening. No bladder calculi. Pelvic organs: Prostate enlargement likely secondary to benign prostatic hyperplasia. Bowel: Normal appendix. No bowel obstruction. Peritoneal cavity: No free fluid or intraperitoneal gas. Lymph nodes: Few prominent lymph nodes in the portacaval and peripancreatic regions, nonspecific. Vasculature: Atherosclerosis of the normal caliber abdominal aorta. Abdominal wall: Normal. Musculoskeletal: Degenerative changes of the spine. Posterior fusion hardware with laminectomy defects in the lumbar spine. Incidental note made of sacral dural ectasia. IMPRESSION: 1. Obstructing 8 mm calculus in the proximal right ureter with mild right hydroureteronephrosis. Additional partially obstructing 6 mm in the right mid to distal ureter. 2. Bilateral nephrolithiasis. 3. Chronic bladder outlet obstruction secondary to prostatomegaly. 4. Chronic lung disease at the lung bases. Electronically signed by: Guru Gandhi M.D. 02/04/2019 12:59 PM Blood Pressure Blood Pressure Findings: Elevated blood pressure Blood Pressure Disposition: further management by hospitalist [facility] Narrative Vital signs stable. Labs are within normal limits. CT shows an 8 mm and a 6 mm obstructing stones. I discussed the patient's case with urology who states that the patient should be admitted to medicine and they will remove the stones tomorrow. The patient was admitted to the [facility]. I discussed the patient's case with Katerin Lofton [facility] They will evaluate the patient for further management. Impression & Plan Kidney stone, Hydroureteronephrosis Discharge Plan Visit Data *Final* Discharge Date/Time: 02/04/19 14:28 Chief Complaint: Kidney Stone Stated Complaint: KIDNEY STONE ED Provider: Jacinto Martino Discharge Problem: Kidney stone, Hydroureteronephrosis Patient Disposition: Admitted As Inpatient Discharge Instructions Interventions: ED Discharge Assessment Last Done: 02/04/19 14:28 The scribe's documentation has been prepared under my direction and personally reviewed by me in its entirety. I confirm that the note above accurately r eflects all work, treatment, procedures, and medical decision making performed by me.
[2019-02-04] MEDS ORDERED: INSULIN GLARGINE SOLOSTAR 100 UNITS/ML 3 ML PEN SC SCH (21:00)
[2019-02-05] MEDS: MoRPHine SULFATE 4 MG/ML 1 ML CARP\\VIAL IV PRN ×2 (00:06→07:17)
[2019-02-05] MEDS: LACOSAMIDE 50 MG TABLET PO SCH ×2 (00:31→07:18)
[2019-02-05] MEDS: levETIRAcetam 500 MG TAB PO SCH ×2 (00:31→07:18)
[2019-02-05] MEDS ORDERED: Nursing to Pharmacy Communication ONE ×2 (01:40→10:30)
[2019-02-05] MEDS ORDERED: INSULIN ASPART 100 UNITS/ML 3 ML PEN SC SCH ×3 (06:00→11:30)
[2019-02-05] MEDS ORDERED: INSULIN GLARGINE SOLOSTAR 100 UNITS/ML 3 ML PEN SC SCH (06:38)
[2019-02-05] MEDS ORDERED: D5W AND NSS 1,000 ML IV SCH (06:45)
[2019-02-05 07:28] LABS: Hematocrit (blood only) 31.2 % (42-52); Hemoglobin 10.6 g/dL (14.0-18.0); Mean Corpuscular Hemoglobin 30.5 pg (25-34); Mean Corpuscular Volume 89.9 fL (80-100); Mean Platelet Volume 9.9 fL (7.4-10.4); Platelet Count 201 K/uL (130-400); RDW Coefficient of Variation 12.9 % (11.5-14.5); RDW Standard Deviation 42.2 fL (36.4-46.3); Red Blood Count 3.47 M/uL (4.7-6.1); White Blood Count 5.74 K/uL (4.8-10.8)
--- NOTE | 2019-02-05 07:30 | Urology Consultation ---
Date of Consultation February 05, 2019 Assessment & Plan (1) Ureteral stone with hydronephrosis: 68yo M with 10mm prox right ureteral stone, and 6mm distal right ureteral stone with mild hydro, stable bilateral renal stones. Pain presently controlled, nontoxic. KUB done this AM, great visibility of 10mm prox stone, Nonvisibility of suspected distal ureteral stone. Pt denies passage, has been straining since admission. We discussed options moving forward. ESWL vs acute right ureteral stenting. He understands that nonvisibility of lower stone does not guarantee passage of it. Of note, he is on baby aspirin. Images have been reviewed with Dr. Espitia. The risk for perinephric bleeding is too great, pt is not a candidate for ESWL this Saturday. Pt understands. He takes baby aspirin due to old cardiac stents, >20 years old. He has been stable from cardiac standpoint and visits annually, Denies CP/SOB episodes. He states it is no problem to come off, he simply takes it for peace of mind. Pt remains firmly against ureteral stenting and/or ureteroscopy due to difficult experience with cystoscopy in the past (in [place]). Okay for diet today. He requests to go home with Tramadol for pain control. We will arrange for him to hold aspirin now, and plan for outpatient ESWL next Saturday. He outpatient H&P is scheduled for 02/10/19 at 11:15AM at [address] He understands if pain becomes intolerable, or he develops fever >101F he must report back to ED. History of Present Illness Reason for Consultation: right ureteral stone Requesting Physician: Dr. kennedy Attending Physician: Boo Kennedy MD History of Present Illness 68yo M with a PMH of kidney stones, seizure disorder, h/o hemangioma s/p resection, DM II, CAD (s/p stent) was admitted through [facility] ED with c/o persistent R flank pain x 1 week with associated nausea. He was found to have a 10mm obstructing right obstructive ureteral stone and 6mm distal right uretearl stone, with mild hydronephrosis. He also has a 3mm right renal stone, and 6mm left renal stone. Hx of 15 stone episodes in his life, previously followed with Urologist in [place]. Typically passes spontaneously, largest he has passed was a 1cm stone to left side. He has required lithotripsy in the past which was successful. He denies fevers,chills, +nausea, no emesis. Denies hematuria, LUTS. His pain is currently controlled with IV morphine. Labs reviewed, Creatinine 1.7 upon admission,which has improved with hydration to 1.39 this AM. No leukocytosis. VSS, BP soft s/p pain medication at bedside, she is an RN for [employer]. Allergies Allergy/AdvReac Type Severity Reaction Status Date / Time Bactrim Allergy Intermediate RASH Verified 07/08/17 22:07 sulfamethoxazole Allergy Intermediate RASH Verified 02/04/19 13:08 trimethoprim Allergy Intermediate RASH Verified 02/04/19 13:08 ofloxacin Allergy Unknown RASH Unverified 02/04/19 13:08 Home Medications Home Medications Medication Instructions Recorded Confirmed Type aspirin [Aspirin Low Dose] 81 mg PO DAILY #0 12/28/10 02/04/19 History ezetimibe [Zetia] 10 mg PO QAM #0 12/28/10 02/04/19 History multivitamin 1 tab PO DAILY #0 12/28/10 02/04/19 History metformin [Glucophage] 1,000 mg PO BID #0 01/18/11 02/04/19 History triamcinolone acetonide 1 applic TOPICAL UD #0 08/24/11 02/04/19 History atorvastatin [Lipitor] 80 mg PO DAILY #0 tab 02/10/15 02/04/19 History enalapril maleate [Vasotec] 2.5 mg PO DAILY #0 tab 02/10/15 02/04/19 History insulin glargine [Lantus Solostar 32 - 33 unit SUBCUT HS #0 ml 02/10/15 02/04/19 History U-100 Insulin] insulin lispro 8 - 12 unit SUBCUT BIDM #0 02/10/15 02/04/19 History metoprolol succinate [Toprol XL] 25 mg PO DAILY #0 tab 02/10/15 02/04/19 History levetiracetam [Keppra] 2,000 mg PO BID #0 tab 04/04/16 02/04/19 History sildenafil [Viagra] 50 mg PO UD #18 04/04/16 02/04/19 History fenofibrate nanocrystallized 145 mg PO DAILY 02/04/19 02/04/19 History lacosamide [Vimpat] 100 mg PO BID 02/04/19 02/04/19 History Patient History Medical History Brain mass (Resolved) Dyslipidemia (Chronic) Hypertension (Chronic) CAD (coronary artery disease) (Chronic) Seizure disorder (Chronic) Type 2 diabetes mellitus (Chronic) Kidney stones Surgical History Status post coronary artery stent placement (Chronic) Status post cardiac catheterization (Chronic) Status post lumbar surgery (Chronic) Family History Other Alzheimer disease Social History Preferred Language: Ukrainian Communication Ability: Effective [employer] Required: No Beliefs That Will Affect Care: None marital status: Current Living Situation: Family current occupational status: retired Feels Safe at Home: Yes Smoking Status: Former smoker Hx Alcohol Use: Yes Alcohol type: wine and hard liquor Alcohol Intake Frequency: Rarely Hx Substance Use: No Review of Systems Review of Systems: Constitutional: Denies fever, chills, sweats, malaise Eyes: Denies problem reported ENMT: Denies dizziness Resp: Denies cough, Denies shortness of breath CV: Denies JVD GI: + nausea, denies vomiting : + right flank pain, denies dysuria, urgency, frequency, hematuria MS: Denies swelling, stiffness Integ: Denies rash, erythema Neuro: Denies falls, weakness Psych: Denies behavior change Endo: Denies polyphagia, polydipsia Heme: Denies easy bleeding Physical Exam Constitutional: no acute distress and not ill appearing Eyes: no nystagmus ENMT: Ears: no hearing impairment Neck: trachea midline Respiratory: no respiratory distress and no cough Cardiovascular: Vessels: no JVD Chest (Breasts): Chest: normal inspection of chest Gastrointestinal (Abdomen): Inspection/Auscultation: abdomen not distended and no abdominal edema Percussion/Palpation: abdomen soft; abdomen nontender Musculoskeletal: Head/Neck/Chest: normocephalic and head atraumatic Skin: no rashes, warm and dry Neurologic: awake; not confused and not obtunded Psychiatric: Orientation: alert and oriented x 3 Eye Contact: good eye contact Affect: no depressed affect Genitourinary: bladder normal to inspection; no CVA tenderness no suprapubic pain upon palpation Lymphatic: no lymphadenopathy and no lymphedema Results & Data Vital Signs (Past 12 Hours) Vital Signs Temp Pulse Resp BP Pulse Ox 02/04/19 23:56 36.5 C 62 16 150/75 H 95 Laboratory Results Laboratory Results - last 48 hr 02/04/19 02/04/19 02/04/19 11:40 11:40 11:40 WBC 7.63 RBC 4.09 L Hgb 12.8 L Hct 36.2 L MCV 88.5 MCH 31.3 MCHC 35.4 RDW Std Deviation 40.8 RDW Coeff of Concha 12.7 Plt Count 263 MPV 9.4 Sodium 138 Potassium 4.2 Chloride 108 H Carbon Dioxide 24 Anion Gap 6.0 BUN 23 H Creatinine 1.73 H Est Cr Clr Drug Dosing 45.4 Est GFR ( Amer) 46.3 Est GFR (Non-Af Amer) 40.0 BUN/Creatinine Ratio 13.4 Glucose 101 H POC Glucose Calcium 10.0 Urine Color Yellow Urine Appearance Clear Urine pH 5.0 Ur Specific [place] 1.014 Urine Protein Negative Urine Glucose (UA) Negative Urine Ketones Negative Urine Blood 2+ H Urine Nitrite Negative Urine Bilirubin Negative Urine Urobilinogen Negative Ur Leukocyte Esterase Trace H Urine WBC (Auto) 1-5 Urine RBC (Auto) 0-4 U Hyaline Cast (Auto) 0 U Epithel Cells (Auto) 0-5 Urine Bacteria (Auto) Negative Hepatitis C Ab Screen 02/04/19 02/04/19 02/04/19 11:40 17:24 20:24 WBC RBC Hgb Hct MCV MCH MCHC RDW Std Deviation RDW Coeff of [place]cha Plt Count MPV Sodium Potassium Chloride Carbon Dioxide Anion Gap BUN Creatinine Est Cr Clr Drug Dosing Est GFR ( Amer) Est GFR (Non-Af Amer) BUN/Creatinine Ratio Glucose POC Glucose 170 H 153 H Calcium Urine Color Urine Appearance Urine pH Ur Specific [place] Urine Protein Urine Glucose (UA) Urine Ketones Urine Blood Urine Nitrite Urine Bilirubin Urine Urobilinogen Ur Leukocyte Esterase Urine WBC (Auto) Urine RBC (Auto) U Hyaline Cast (Auto) U Epithel Cells (Auto) Urine Bacteria (Auto) Hepatitis C Ab Screen Neg 02/05/19 02/05/19 02/05/19 06:13 06:48 06:48 WBC 5.74 RBC 3.47 L Hgb 10.6 L Hct 31.2 L MCV 89.9 MCH 30.5 MCHC 34.0 RDW Std Deviation 42.2 RDW Coeff of Concha 12.9 Plt Count 201 MPV 9.9 Sodium 142 Potassium 4.1 Chloride 111 H Carbon Dioxide 27 Anion Gap 4.0 BUN 18 Creatinine 1.39 D Est Cr Clr Drug Dosing 51.6 Est GFR ( Amer) 60.4 Est GFR (Non-Af Amer) 52.1 BUN/Creatinine Ratio 12.6 Glucose 69 L POC Glucose 79 Calcium 9.3 Urine Color Urine Appearance Urine pH Ur Specific [place] Urine Protein Urine Glucose (UA) Urine Ketones Urine Blood Urine Nitrite Urine Bilirubin Urine Urobilinogen Ur Leukocyte Esterase Urine WBC (Auto) Urine RBC (Auto) U Hyaline Cast (Auto) U Epithel Cells (Auto) Urine Bacteria (Auto) Hepatitis C Ab Screen
[2019-02-05 07:56] LABS: BUN Creatinine Ratio 12.6 (10-20); Calcium 9.3 mg/dl (8.5-10.1); Creatinine Clr Calc Pharmacy 51.6 ml/min; Est GFR (African American) 60.4; Est GFR (Non-African American) 52.1; Potassium 4.1 mmol/L (3.5-5.1)
--- NOTE | 2019-02-05 08:08 | XRay Report ---
KUB HISTORY: visibility of right ureteral stones COMPARISON: Abdomen and pelvis CT 01/27/2019. FINDINGS: The bowel gas pattern is unremarkable. There are no dilated loops of small bowel to suggest an obstruction. There is a punctate stone within the lower pole the right kidney and 2 stones withi n the left kidney. The largest measuring 1 cm. Redemonstration of the 1 cm stone within the mid right ureter overlying the right L4 transverse process. This is unchanged in position. Posterior fusion [place] rdware noted within the lumbar spine. No pneumoperitoneum or pneumatosis. IMPRESSION: No change in the bilateral nephrolithiasis and mid right ureteral stone. Electronically signed by: Gus Mejias M.D. 02/05/2019 8:05 AM
[2019-02-05] MEDS ORDERED: FENOFIBRATE NANOCRYSTALLIZED 145 MG TABLET PO SCH (09:00)
[2019-02-05] MEDS ORDERED: MULTIVITAMIN TAB PO SCH (09:00)
[2019-02-05] MEDS ORDERED: METOPROLOL SUCC 25MG EXT REL TAB PO SCH (09:00)
[2019-02-05] MEDS ORDERED: ATORVASTATIN 40 MG TAB PO SCH (09:00)
[2019-02-05] MEDS ORDERED: ASPIRIN 81 MG ECTAB PO SCH (09:00)
[2019-02-05] MEDS ORDERED: EZETIMIBE 10 MG TABLET PO SCH (09:00)
--- NOTE | 2019-02-05 09:32 | XRay Report ---
XR chest 2V routine CLINICAL HISTORY: preop COMPARISON STUDY: 07/08/2017 FINDINGS: Chronic interstitial change left base. Mild stable cardiomegaly. Mild baseline emphysematous change. Significant degenerative change of the thoracic spine. IMPRESSION: Chronic change as described. No acute process. The above report was generated using voice recognition software. It may contain grammatical, syntax or spelling errors. Electronically signed by: Deacon Dozier M.D. 02/05/2019 9:31 AM
--- NOTE | 2019-02-05 12:05 | Hospitalist Progress Note ---
Date of Service February 05, 2019 Assessment & Plan (1) Ureteral stone with hydronephrosis: This is a 68yo M with a PMH of kidney stones, seizure disorder, h/o brain mass s/p resection, DM II, CAD (s/p stent) and other medical problems listed below who presents with R flank pain x 1 week and was found to have right obstructive ureteral stone with mild hydronephrosis. -Afebrile and hemodynamically stable with R flank pain x 1 week -Ct abd/pelvis with obstructing 8 mm calculus in the proximal right ureter with mild right hydroureteronephrosis. Additional partially obstructing 6 mm in the right mid to distal ureter -IV fluids, pain control, antiemetics -Appreciate urology input and recommendation -Pain seems to be reasonably controlled -He was advised that he can go home and will have the procedure as an outpatient -We will (2) Acute kidney injury: In setting of obstructing R ureteral stones with mild hydronephrosis -Cr elevated at 1.73 (baseline Cr ~0.9) -Hold enalapril. 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 No seizure since 2016 -Continue Keppra, Vimpat (5) CAD (coronary artery disease): H/o stent -Continue aspirin, statin (6) Hypertension: Normotensive -Continue Toprol DVT Ppx: SCDs for procedure tomorrow Code status: FULL PCP: Fox Dispo: Admit to med surg. Plan to return home once medically stable. Willing to go home this afternoon as per urology recommendation Advised to drink more fluid If the condition gets worse, he will be contacting the urology service Subjective 02/05 Patient was seen and examined in the medical floor He has history of nephrolithiasis and was admitted with right ureteral obstruction with mild hydronephrosis He complains of pain but denies any fever and/or chills We will not have the cystoscopy today rather it will be done as an outpatient as per the urologist He complains to have minimal pain right side of the abdomen and denies any fever and/or chills He will be going home this afternoon Review of Systems Review of Systems: At least ten systems reviewed and negative except as noted in the HPI. Physical Exam Physical Exam: Minimal discomfort at rest Constitutional: + ill appearing; no acute distress Eyes: PERRL, conjunctivae normal, anicteric sclerae no nystagmus ENMT: external ear and nose normal, oropharynx normal Ears: no hearing impairment Neck: trachea midline, no thyromegaly trachea midline Respiratory: normal respiratory effort Auscultation: lungs clear to auscultation bilaterally Cardiovascular: Rate/Rhythm: regular rate and regular rhythm Vessels: no JVD Chest (Breasts): Chest: normal inspection of chest Gastrointestinal (Abdomen): Inspection/Auscultation: normal bowel sounds; abdomen not distended and no abdominal edema Percussion/Palpation: abdomen soft; abdomen nontender Musculoskeletal: Head/Neck/Chest: normocephalic and head atraumatic Skin: no rashes, warm and dry Neurologic: awake; not confused and not obtunded Psychiatric: Orientation: alert and oriented x 3 Eye Contact: good eye contact Affect: no depressed affect Genitourinary: bladder normal to inspection; no CVA tenderness Lymphatic: no cervical or axillary lymphadenopathy no lymphadenopathy and no lymphedema Results & Data Vital Signs (Past 12 Hours) Vital Signs Temp Pulse Resp BP Pulse Ox 02/05/19 08:00 37.1 C 52 L 20 99/59 L 99 Laboratory Results Short CBC 02/05/19 Range/Units 06:48 WBC 5.74 (4.8-10.8) K/uL Hgb 10.6 L (14.0-18.0) g/dL Hct 31.2 L (42-52) % Plt Count 201 (130-400) K/uL BMP 02/04/19 02/05/19 11:40 06:48 Sodium 138 142 Potassium 4.2 4.1 Chloride 108 H 111 H Carbon Dioxide 24 27 BUN 23 H 18 Creatinine 1.73 H 1.39 D Glucose 101 H 69 L Calcium 10.0 9.3 Urine 02/04/19 Range/Units 11:40 Urine Color Yellow Urine Appearance Clear (Clear) Urine pH 5.0 (4.5-7.5) Ur Specific [place] 1.014 (1.000-1.030) Urine Protein Negative (Negative) Urine Glucose (UA) Negative (Negative) Medications Administered Current Inpatient Medications Acetaminophen (Tylenol) 650 mg PO Q4H PRN PRN Reason: pain/fever Stop: 03/06/19 14:37 Aspirin (Ecotrin Ectab) 81 mg PO DAILY [facility] Stop: 03/07/19 08:59 Last Admin: 02/05/19 07:19 Dose: 81 mg Documented by: Atorvastatin Calcium (Lipitor) 80 mg PO DAILY [facility] Stop: 03/07/19 08:59 Last Admin: 02/05/19 07:19 Dose: 80 mg Documented by: Dextrose (Dextrose 50%) 25 - 50 ml IV UD PRN; Protocol PRN Reason: Hypoglycemia Protocol Stop: 03/06/19 14:25 Ezetimibe (Zetia) 10 mg PO QAM [facility] Stop: 03/07/19 08:59 Last Admin: 02/05/19 07:19 Dose: 10 mg Documented by: Fenofibrate (Tricor) 145 mg PO DAILY [facility] Stop: 03/07/19 08:59 Last Admin: 02/05/19 07:19 Dose: 145 mg Documented by: Glucagon (Glucagen) 1 mg SQ UD PRN; Protocol PRN Reason: Hypoglycemia Protocol Stop: 03/06/19 14:25 Glucose (Glucose 40%) 15 - 30 gm PO UD PRN; Protocol PRN Reason: Hypoglycemia Protocol Stop: 03/06/19 14:25 Glucose (Dex4 Glucose) 4 - 8 tabs PO UD PRN; Protocol PRN Reason: Hypoglycemia Protocol Stop: 03/06/19 14:25 Insulin Aspart (Novolog Flexpen) 0 units SC ACHS [facility] Stop: 03/07/19 11:29 Insulin Glargine (Lantus Solostar Pen) 0 units SC BID [facility]; Protocol Stop: 03/06/19 20:59 Last Admin: 02/05/19 08:00 Dose: Not Given Documented by: Lacosamide (Vimpat) 100 mg PO BID [facility] Stop: 03/07/19 00:14 Last Admin: 02/05/19 07:18 Dose: 100 mg Documented by: Levetiracetam (Keppra) 2,000 mg PO BID [facility] Stop: 03/07/19 00:14 Last Admin: 02/05/19 07:18 Dose: 2,000 mg Documented by: Metoprolol Succinate (Toprol Xl) 25 mg PO DAILY [facility] Stop: 03/07/19 08:59 Last Admin: 02/05/19 07:19 Dose: 25 mg Documented by: Miscellaneous (Carbohydrates For Hypoglycemia) 15 - 30 gm PO UD PRN PRN Reason: Hypoglycemia Treatment Stop: 03/06/19 14:25 Morphine Sulfate (Morphine Sulfate) 4 mg IV Q4H PRN PRN Reason: Pain Stop: 02/18/19 17:41 Last Admin: 02/05/19 07:17 Dose: 4 mg Documented by: Multivitamins (Multivitamin Tab) 1 tab PO DAILY [facility] Stop: 03/07/19 08:59 Last Admin: 02/05/19 07:19 Dose: 1 tab Documented by: Ondansetron HCl (Zofran) 4 mg IV Q6H PRN PRN Reason: Nausea Stop: 03/06/19 14:37 Polyethylene Glycol (Miralax Powder Packet) 17 gm PO DAILY PRN PRN Reason: Constipation Stop: 03/06/19 14:37
--- NOTE | 2019-02-05 17:10 | Discharge Summary ---
Date of Service February 05, 2019 Admission HPI Per Admitting Provider This is a 68yo M with a PMH of kidney stones, seizure disorder, h/o brain mass s/p resection, DM II, CAD (s/p stent) and other medical problems listed below who presents with R flank pain x 1 week. Pain is sharp and stabbing and has progressed over the past week. Associated with nausea and subjective fever. Denies nausea, dysuria or hematuria. Has significant history of kidney stones since the and usually stones pass on their own. Patient has been drinking a lot of water in the hopes of passing stone. Has undergone lithotripsy once in . Patient is afebrile and hemodynamically stable. CT abd/pelvis with obstructing 8 mm calculus in the proximal right ureter with mild right hydroureteronephrosis. Additional partially obstructing 6 mm in the right mid to distal ureter. ED provider spoke with urology, who will plan on intervention tomorrow. When examined, patient comfortable and without pain. Denies chills, headache, lightheadedness, visual changes, chest pain, palpitations, shortness of breath, abdominal pain, vomiting, constipation or diarrhea. Admission Exam Per Admitting Provider Physical Exam: General Appearance: WD/WN, no apparent distress, resting comfortably Head: normocephalic, atraumatic Eyes: normal inspection, PERRL, EOMI ENT: hearing grossly normal, pharynx normal (moist mucous membranes) Neck: supple, no JVD, no adenopathy Respiratory/Chest: lungs clear to auscultation. No wheezes, rales or rhonchi. No respiratory distress or accessory muscle use Cardiovascular: regular rate, rhythm, no murmur, normal peripheral pulses Abdomen/GI: normal bowel sounds, soft, non-tender to palpation : R flank and suprapubic pain. No CVA tenderness Extremities/Musculoskelatal: normal inspection, no calf tenderness, normal capillary refill, no pedal edema Neurologic/Psych: alert, normal mood/affect, oriented x 3 Skin: normal color, warm/dry Principal Diagnosis Obstructing right ureteric stone, DONITA-resolved, type 2 diabetes, seizure disorder Discharge Exam Constitutional + ill appearing; no acute distress Eyes PERRL, conjunctivae normal, anicteric sclerae no nystagmus ENMT external ear and nose normal, oropharynx normal Ears: no hearing impairment Neck trachea midline, no thyromegaly trachea midline Respiratory normal respiratory effort Auscultation: lungs clear to auscultation bilaterally Cardiovascular Rate/Rhythm: regular rate and regular rhythm Vessels: no JVD Chest (Breasts) Chest: normal inspection of chest Gastrointestinal (Abdomen) Inspection/Auscultation: normal bowel sounds; abdomen not distended and no abdominal edema Percussion/Palpation: abdomen soft; abdomen nontender Musculoskeletal Head/Neck/Chest: normocephalic and head atraumatic Skin no rashes, warm and dry Neurologic awake; not confused and not obtunded Psychiatric Orientation: alert and oriented x 3 Eye Contact: good eye contact Affect: no depressed affect Genitourinary bladder normal to inspection; no CVA tenderness Lymphatic no cervical or axillary lymphadenopathy no lymphadenopathy and no lymphedema Discharge Data Allergies Allergy/AdvReac Type Severity Reaction Status Date / Time Bactrim Allergy Intermediate RASH Verified 07/08/17 22:07 sulfamethoxazole Allergy Intermediate RASH Verified 02/04/19 13:08 trimethoprim Allergy Intermediate RASH Verified 02/04/19 13:08 ofloxacin Allergy Unknown RASH Unverified 02/04/19 13:08 Consultations 02/04/19 13:28 ED Decision to Admit Stat 02/04/19 14:38 Consult Urology Routine Ordered Studies 02/04/19 12:12 CT abd pelvis wo con Stat Hospital Course (1) Ureteral stone with hydronephrosis: This is a 68yo M with a PMH of kidney stones, seizure disorder, h/o brain mass s/p resection, DM II, CAD (s/p stent) and other medical problems listed below who presents with R flank pain x 1 week and was found to have right o bstructive ureteral stone with mild hydronephrosis. -Afebrile and hemodynamically stable with R flank pain x 1 week -Ct abd/pelvis with obstructing 8 mm calculus in the proximal right ureter with mild right hydroureteronephrosis. Additional partially obstructing 6 mm in the right mid to distal ureter -IV fluids, pain control, antiemetics -Appreciate urology input and recommendation -Pain seems to be reasonably controlled -He was advised that he can go home and will have the procedure as an outpatient -We will (2) Acute kidney injury: In setting of obstructing R ureteral stones with mild hydronephrosis -Cr elevated at 1.73 (baseline Cr ~0.9) -Hold enalapril. 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 No seizure since 2016 -Continue Keppra, Vimpat (5) CAD (coronary artery disease): H/o stent -Continue aspirin, statin (6) Hypertension: Normotensive -Continue Toprol DVT Ppx: SCDs for procedure tomorrow Code status: FULL PCP: [facility] Dispo: Admit to med surg. Plan to return home once medically stable. Willing to go home this afternoon as per urology recommendation Advised to drink more fluid If the condition gets worse, he will be contacting the urology service Total Time Total Time Spent Total Time Spent (In Minutes): 35 minutes Total Time Includes: Examination of the Patient, Discharge Planning, Medication Reconciliation and Communication With Other Providers Discharge Plan Discharge Items Patient Disposition: Home - Self-Care Reason For Visit: OBSTRUCTING R URETERAL STONE Discharge Diagnosis: Obstructing right ureteric stone, DONITA-resolved, type 2 diabetes, seizure disorder Condition: Good Discharge Goals: Decrease discomfort, Improve function and Increase independence Activity: Resume your previous activity Non-emergency contact: Primary Care Provider Call non-emergency contact if: you have any medication questions and your symptoms worsen Follow-up/Referrals: Dalila Lora CRNP [Nurse Practitioner] - 02/10/19 11:15 am (Please obtain xray prior to visit at [facility] Main Entrance. ) Giovanny Braxton MD [Primary Care Provider] - 02/12/19 11:05 am Diet: Carb Consistent or DM2 Addtl Provider Instructions: Instructions from your Urology Team: Please hold aspirin starting tomorrow AM. We have your follow-up appointment scheduled, please obtain xray prior to this visit. Please remember, you must report back to the ER for uncontrolled pain or fever >101F. Aspirin has been discontinued temporarily It should be restarted after the urological procedure as soon as possible. Prescriptions: New tramadol [Ultram] 50 mg tablet 50 mg PO Q6H PRN (Reason: pain) Qty: 20 RF: 0 Continued ezetimibe [Zetia] 10 mg Tablet 10 mg PO QAM Qty: 0 RF: 0 multivitamin Tablet 1 tab PO DAILY Qty: 0 RF: 0 metformin [Glucophage] 1,000 mg Tablet 1,000 mg PO BID Qty: 0 RF: 0 triamcinolone acetonide 0.1 % Cream 1 applic TOPICAL UD Qty: 0 RF: 0 atorvastatin [Lipitor] 80 mg Tablet 80 mg PO DAILY Qty: 0 RF: 0 enalapril maleate [Vasotec] 2.5 mg Tablet 2.5 mg PO DAILY Qty: 0 RF: 0 insulin lispro 100 unit/mL Insulin Pen 8 - 12 unit SUBCUT BIDM Qty: 0 RF: 0 Lantus Solostar U-100 Insulin 100 unit/mL (3 mL) Insulin Pen 32 - 33 unit SUBCUT HS Qty: 0 RF: 3 metoprolol succinate [Toprol XL] 25 mg Tablet Extended Release 24 Hr 25 mg PO DAILY Qty: 0 RF: 0 sildenafil [Viagra] 50 mg Tablet 50 mg PO UD Qty: 18 RF: 0 levetiracetam [Keppra] 1,000 mg Tablet 2,000 mg PO BID Qty: 0 RF: 0 fenofibrate nanocrystallized 145 mg tablet 145 mg PO DAILY RF: 0 Vimpat 100 mg tablet 100 mg PO BID RF: 0 Discontinued aspirin [Aspirin Low Dose] 81 mg Tablet,Delayed Release (Dr/Ec) 81 mg PO DAILY Qty: 0 RF: 0 Stand-Alone Forms: [facility] Discharge Orders: Discharge Order (Routine); Ordered 02/05/19 Ordered By: Boo Kennedy Admission Data Admit Date/Time: 02/04/19 13:38 Attending Provider: Boo Kennedy Admit Provider: Boo Kennedy Primary Care Provider: Giovanny Braxton Other Providers: Boo Kennedy ; Chadd Orellana Service: Medical Other Interventions: Discharge Summary Assessment (RN) Last Done: 02/05/19 13:23 DC Date/Time DO NOT enter until pt leaves facility: 02/05/19 14:32
== END 2019-02-05 14:32 | disposition home or self-care (01) | DRG 694 ==
LOC: ED 11:06 → 3W 13:38

== ENCOUNTER 2023-04-08 15:25 | Inpatient (IN) ==
[2023-04-08] MEDS ORDERED: LORazepam 2 MG/1 ML VIAL ONE (15:34)
[2023-04-08] MEDS ORDERED: LORazepam 2 MG/1 ML VIAL IV STA ×4 (15:37→21:55)
[2023-04-08 15:50] LABS: Basophils # (auto) 0.02 K/uL (0.00-0.20); Basophils % (auto) 0.5 %; Eosinophils % (auto) 2.7 %; Hematocrit (blood only) 42.8 % (42.0-52.0); Hemoglobin 14.1 g/dl (14.0-18.0); Immature Granulocytes # (auto) 0.01 K/uL (0.01-0.20); Immature Granulocytes % (auto) 0.3 %; Lymphocytes # (auto) 1.03 K/uL (1.20-3.40); Lymphocytes % (auto) 27.8 %; Mean Corpuscular Hemoglobin 30.2 pg (25.0-34.0); Mean Corpuscular Hgb Conc 32.9 g/dL (32.0-36.0); Mean Corpuscular Volume 91.6 fL (80.0-100.0); Mean Platelet Volume 9.8 fL (9.4-12.4); Monocytes % (auto) 8.1 %; Neutrophils # (auto) 2.25 K/uL (1.40-6.50); Neutrophils % (auto) 60.6 %; Platelet Count 181 K/uL (130-400); RDW Coefficient of Variation 16.2 % (11.5-14.5); RDW Standard Deviation 53.7 fL (36.4-46.3); Red Blood Count 4.67 M/uL (4.70-6.10); White Blood Count 3.71 K/ul (4.8-10.8)
[2023-04-08 15:50] LABS: iSTAT Creatinine 1.2 mg/dl (0.6-1.3); iSTAT Ionized Calcium 1.29 mmol/l (1.12-1.32); iSTAT Potassium 4.8 mmol/L (3.3-5.0)
--- NOTE | 2023-04-08 15:51 | Emergency Department Note ---
Impression & Plan Breakthrough seizure, History of liver cancer ED Provider Note Provider: Brian Means MD DATE OF SERVICE: 04/08/2023 CHIEF COMPLAINT: Seizure HISTORY OF PRESENT ILLNESS: Patient is a 72-year-old gentleman significant complex past medical history including diabetes, hypertension, HCC on treatment status post embolization, seizure disorder status post meningioma resection currently maintained on Keppra and Zonegran presenting here today with . Patient evidently has had multiple seizures in the past last about 3 weeks ago. Reported compliance with his home Keppra and Zonegran. There is report that the patient was otherwise well this morning without fevers. There is no trauma history reported today. There is reported compliance with Eliquis. Patient evidently was going with in the car to the [place] area to look at some furniture. There is evidently some issue with moving as a plan to move to [place] and scheduling and the patient received a phone call became stressed and agitated with this. As they are in the car leaving town the patient began to have some slurred speech and right gaze deviation was not himself and this as the is describing is classic for his seizures. Brought him here. Immediately taken to room B1. Patient held by being full history upon arrival. reports he had history of aspiration and in prior episodes has been more severe than this. PAST MEDICAL HISTORY: As noted above MEDICATIONS: Reviewed medication list reported compliance with his AEDs. SOCIAL HISTORY: PHYSICAL EXAM: GENERAL: Patient with right gaze deviation laying on the stretcher eyes open staring over his right shoulder Head: normocephalic and atraumatic EYES: No injection, discharge or icterus. PERRL however with a right gaze deviation noted. NECK: Trachea midline. Supple. ENT: Mucous membranes pink and moist. Pharynx without erythema or exudate. LUNGS: Airway patent. No retractions. Breath sounds clear with good air entry bilaterally. HEART: Regular rate and rhythm. No chest wall tenderness ABDOMEN: Soft and non-tender, without guarding or rebound. Healed right upper quadrant abdominal scar SKIN: Acyanotic, warm, dry, without rashes EXTREMITIES: Without swelling, tenderness or deformity NEUROLOGICAL: Not responsive to verbal or painful stimuli. Does have intact corneal reflex EK bpm normal sinus rhythm. No PVC or PAC. No acute ST segment elevation or depression. QTc 426. CONTINUOUS CARDIAC MONITORING: was ordered and showed a heart rate of 70s-80s bpm in normal sinus rhythm Patient's laboratory studies and imaging reviewed. Differential includes Epilepsy, infection, hypoglycemia, electrolyte abnormaliti es, cardiac sources, intracerebral event, trauma, toxicologic, neurologic, syncope, as well as other pathologies. IMPRESSION/MEDICAL DECISION MAKING: Reviewed [facility] medical records including last neurology appointment on February 19 of this year. Patient with complex past history both from seizures and neurosurgically as well as with cancer. No reported apparent infectious symptomatologies recently or missed medication. Question of stress of this morning triggered event. Does not seem to have generalized tonic-clonic seizures but later developed a bit of a fine diffuse tremor. Patient with right gaze deviation. reports some sensitivity to benzodiazepines initially given 1 mg Ativan. This was repeated a second time. Patient nonverbal upon arrival unable provide history but appears to be satting well maintaining his airway. Given his use of anticoagulation lives no trauma history as well as his history of neurosurgical intervention a CT of the head was obtained. Basic blood work sent. [id number] electrolytes and glucose without any severe abnormalities. Given additional 2 g IV load of Keppra but appears to be on a very high dose of Keppra at baseline. Lower suspicion that this represents meningitis/encephalitis based on lack of fever or infectious symptoms and sudden onset. Given the provided history of lower suspicion for acute CVA. CT head obtained per radiology report no evidence of acute hemorrhage. Questioning some interval enlargement of the left posterior midline meningioma and a left occipital meningioma. No however acute bleeding noted. Blood work here without any significant anemia. Some leukopenia without neutropenia is noted likely related to his oncological treatments and process. No significant electrolyte abnormalities confirmed on formal labs. Beyond a slightly low magnesium at 1.6. Reference Keppra and zonegram levels were sent. Prolactin 9.6 within normal limits. CK normal and doubt rhabdomyolysis. Patient was yawning but nonverbal and now asleep on reassessment. at bedside. Discussed findings. She endorses concerns for the patient's long-term mental health given his chronic illnesses and some depression. Did reach out to the [facility] neurology team as the patient follows with [facility] neurology given the patient's events. No callback over several hours here. Discussion with the however they wish for further observation here in the patient again now sleeping post benzodiazepine usage. Protecting his airway however and I DO NOT believe he is in status epilepticus or requires intubation. Patient resting comfortably on reassessment. Discussed with the [facility] hospitalist. DIAGNOSIS: Breakthrough seizures, history of meningioma and HCC DISPOSITION: Further observation and care by the hospitalist team. Past Med/Surg History Medical History (Updated 04/08/23 @ 18:58 by AKILAH Bolton) Brain mass HX OF LEFT FRONTAL BRAIN MASS CAD (coronary artery disease) Degenerative disc disease Dyslipidemia HX OF Fatty liver Hypertension HX OF Kidney stones Osteoarthritis Peripheral neuropathy LOWER EXTREMITIES Pulmonary fibrosis Seizure disorder LEFT FRONTAL MASS REMOVED 4 YEARS AGO>SEIZURE AFTER SURGERY LAST EVENT 2 YRS AGO/FOLLOWS DR OTERO ([facility]) Type 2 diabetes mellitus Surgical History History of colonoscopy History of craniotomy 4 YEARS AGO (MENINGIAL TUMOR) > BIB PT REPORTS BRAIN SURGERY 5-6 YR AGO History of cystoscopy History of left cataract surgery FEB 18 2020 History of lithotripsy MOST RECENT FEB 26 2020 History of lumbar surgery X 2 History of tooth extraction Hx of vasectomy AND REVERSAL Status post coronary artery stent placement 2 STENTS PLACED 6 YEARS AGO ([facility]) FOLLOWED BY DR. NGUYỄN Family History Other Alzheimer disease Family history of esophageal cancer Social History Smoking Status: Former smoker Second Hand Exposure: No; Do You Dip or Chew Tobacco: No; Hx Alcohol Use: No Hx Substance Use: No Preferred Language: Nigerien Communication Ability: Effective Hybrid Tester Required: No Beliefs That Will Affect Care: None marital status: Current Living Situation: Spouse Current Living Situation Comment: lives at home with his current occupational status: retired How many Children do You have: 2 Feels Safe at Home: Yes Allergies Allergies Allergy/AdvReac Type Severity Reaction Status Date / Time ofloxacin Allergy Intermediate INFLAMMATION, Verified 04/08/23 17:42 ITCHY RASH sulfamethoxazole Allergy Intermediate RASH Verified 04/08/23 17:42 trimethoprim Allergy Intermediate RASH Verified 04/08/23 17:42 Home Meds Home Medications Medication Instructions Recorded Confirmed apixaban 5 mg tablet (Eliquis) 5 mg PO BID 01/03/23 04/08/23 atorvastatin 80 mg tablet 80 mg PO DAILY 01/03/23 04/08/23 ezetimibe 10 mg tablet 10 mg PO DAILY 01/03/23 04/08/23 insulin aspart U-100 100 unit/mL 8 unit subcut .LUNCH 01/03/23 04/08/23 (3 mL) subcutaneous pen (Novolog FlexPen U-100 Insulin aspart) insulin aspart U-100 100 unit/mL 12 unit subcut .SUPPER 01/03/23 04/08/23 (3 mL) subcutaneous pen (Novolog FlexPen U-100 Insulin aspart) insulin glargine 100 unit/mL (3 33 unit subcut HS 01/03/23 04/08/23 mL) subcutaneous pen (Basaglar KwikPen U-100 Insulin) levetiracetam 1,000 mg tablet 2,000 mg PO BID 01/03/23 04/08/23 metformin 1,000 mg tablet 500 mg PO BID 01/03/23 04/08/23 metoprolol succinate 50 mg 25 mg PO DAILY 01/03/23 04/08/23 tablet,extended release 24 hr sildenafil 50 mg tablet 50 mg PO DIRECTED 01/03/23 04/08/23 zonisamide 100 mg capsule 100 mg PO BID 01/03/23 04/08/23 Udderly Smooth 1 applic topical DIRECTED 04/08/23 04/08/23 lenvatinib 12 mg/day (4 mg x 3) 12 mg PO QAM 04/08/23 04/08/23 capsule (Lenvima) levothyroxine 25 mcg tablet 25 mcg PO QAM 04/08/23 04/08/23 ondansetron HCl 8 mg tablet 8 mg PO QAM 04/08/23 04/08/23 prochlorperazine maleate 10 mg 10 mg PO Q6 PRN Nausea 04/08/23 04/08/23 tablet sodium chloride 0.65 % nasal spray 2 spray intranasal DIRECTED PRN 04/08/23 04/08/23 aerosol (Saline Nasal) Nasal Congestion thiamine HCl (vitamin B1) 100 mg 100 mg PO DAILY 04/08/23 04/08/23 tablet (Vitamin B-1) Results & Data (ED) Vital Signs Vital Signs - 24 hr 04/08/23 15:32 04/08/23 15:41 04/08/23 15:39 Temperature 36.6 C Temperature Source Temporal Artery Scan Pulse Rate 81 80 Pulse Rate from SpO2 Sensor Respiratory Rate 18 Respiratory Effort / Characteristics Non-Labored Respiratory Depth Normal Blood Pressure 163/94 H Blood Pressure Mean 117 Blood Pressure Position Lying Pulse Oximetry 97 Oxygen Delivery Method Room Air Room Air Sepsis Recent Fever Within 48 Hours No Sepsis New/Unexplained Change in Mental Status No Sepsis Action Taken by Nursing No Action Required 04/08/23 15:40 04/08/23 15:40 04/08/23 15:45 Temperature Temperature Source Pulse Rate 81 84 Pulse Rate from SpO2 Sensor 83 84 Respiratory Rate 17 18 Respiratory Effort / Characteristics Respiratory Depth Blood Pressure 153/96 H Blood Pressure Mean 131 Blood Pressure Position Pulse Oximetry 95 98 Oxygen Delivery Method Sepsis Recent Fever Within 48 Hours Sepsis New/Unexplained Change in Mental Status Sepsis Action Taken by Nursing 04/08/23 15:45 04/08/23 15:50 04/08/23 15:50 Temperature Temperature Source Pulse Rate 86 Pulse Rate from SpO2 Sensor 92 H Respiratory Rate 24 Respiratory Effort / Characteristics Respiratory Depth Blood Pressure 151/90 H 149/97 H Blood Pressure Mean 131 115 Blood Pressure Position Pulse Oximetry 95 Oxygen Delivery Method Sepsis Recent Fever Within 48 Hours Sepsis New/Unexplained Change in Mental Status Sepsis Action Taken by Nursing 04/08/23 16:12 04/08/23 16:13 04/08/23 16:13 Temperature Temperature Source Pulse Rate 82 Pulse Rate from SpO2 Sensor 85 82 Respiratory Rate 12 Respiratory Effort / Characteristics Respiratory Depth Blood Pressure 140/86 Blood Pressure Mean 110 Blood Pressure Position Pulse Oximetry 96 97 Oxygen Delivery Method Room Air Sepsis Recent Fever Within 48 Hours Sepsis New/Unexplained Change in Mental Status Sepsis Action Taken by Nursing 04/08/23 16:15 04/08/23 16:15 04/08/23 16:21 Temperature Temperature Source Pulse Rate 83 76 Pulse Rate from SpO2 Sensor 79 76 Respiratory Rate 21 17 Respiratory Effort / Characteristics Respiratory Depth Blood Pressure 134/82 Blood Pressure Mean 94 Blood Pressure Position Pulse Oximetry 98 97 Oxygen Delivery Method Room Air Room Air Sepsis Recent Fever Within 48 Hours Sepsis New/Unexplained Change in Mental Status Sepsis Action Taken by Nursing 04/08/23 16:21 04/08/23 16:30 04/08/23 16:30 Temperature Temperature Source Pulse Rate 75 Pulse Rate from SpO2 Sensor 75 Respiratory Rate 19 Respiratory Effort / Characteristics Respiratory Depth Blood Pressure 139/83 129/79 Blood Pressure Mean 102 93 Blood Pressure Position Pulse Oximetry 96 97 Oxygen Delivery Method Room Air Room Air Sepsis Recent Fever Within 48 Hours Sepsis New/Unexplained Change in Mental Status Sepsis Action Taken by Nursing Laboratory Data 04/08/23 15:30 04/08/23 15:30 Lab Results 04/08/23 04/08/23 04/08/23 Range/Units 15:30 15:30 15:30 WBC 3.71 L (4.8-10.8) K/ul RBC 4.67 L (4.70-6.10) M/uL Hgb 14.1 (14.0-18.0) g/dl POC Hgb (14.0-18.0) g/dl Hct 42.8 (42.0-52.0) % POC Hct (42-52) % MCV 91.6 (80.0-100.0) fL MCH 30.2 (25.0-34.0) pg MCHC 32.9 (32.0-36.0) g/dL RDW Std Deviation 53.7 H (36.4-46.3) fL RDW Coeff of Concha 16.2 H (11.5-14.5) % Plt Count 181 (130-400) K/uL MPV 9.8 (9.4-12.4) fL Immature Gran % (Auto) 0.3 % Neut % (Auto) 60.6 % Lymph % (Auto) 27.8 % [place] % (Auto) 8.1 % Eos % (Auto) 2.7 % Baso % (Auto) 0.5 % Neut # (Auto) 2.25 (1.40-6.50) K/uL Lymph # (Auto) 1.03 L (1.20-3.40) K/uL [place] # (Auto) 0.30 (0.11-0.59) K/uL Eos # (Auto) 0.10 (0.00-0.50) K/uL Baso # (Auto) 0.02 (0.00-0.20) K/uL Immature Gran # (Auto) 0.01 (0.01-0.20) K/uL POC Sodium (135-144) mmol/L Sodium 137 (136-145) mmol/L POC Potassium (3.3-5.0) mmol/L Potassium 4.8 (3.5-5.1) mmol/L POC Chloride (101-112) mmol/L Chloride 104 (98-107) mmol/L Carbon Dioxide 26 (21-32) mmol/L POC Total CO2 (24-31) mmol/L Anion Gap 7 (3-11) POC Anion Gap (16-25) mmol/L POC BUN (7-18) mg/dl BUN 13 (6-23) mg/dl Creatinine 1.25 (0.6-1.4) mg/dl POC Creatinine (0.6-1.3) mg/dl Est Cr Clr Drug Dosing 49.1 ml/min Est GFR ( Amer) 66.7 ml/min Est GFR (Non-Af Amer) 57.6 ml/min BUN/Creatinine Ratio 10.4 (10-20) Glucose 216 H (70-99(Fasting)) mg/dl POC Glucose (other) (70-99) mg/dl Calcium 10.1 (8.6-10.3) mg/dl POC Ioniz Calcium Shayan (1.12-1.32) mmol/l Magnesium 1.6 L (1.7-2.4) mg/dl Total Bilirubin 0.6 (0.2-1.0) mg/dl AST 45 H (13-39) U/L ALT 35 (7-52) U/L Alkaline Phosphatase 203 H (34-104) U/L Total Creatine Kinase 107 (30-223) U/L Total Protein 7.4 (6.0-8.3) gm/dl Albumin 3.7 (3.4-5.0) gm/dl Globulin 3.7 (2.5-4.0) gm/dl Albumin/Globulin Ratio 1.0 (0.9-2) Prolactin 9.61 ng/ml 04/08/23 Range/Units 15:37 WBC (4.8-10.8) K/ul RBC (4.70-6.10) M/uL Hgb (14.0-18.0) g/dl POC Hgb 15.0 (14.0-18.0) g/dl Hct (42.0-52.0) % POC Hct 44 (42-52) % MCV (80.0-100.0) fL MCH (25.0-34.0) pg MCHC (32.0-36.0) g/dL RDW Std Deviation (36.4-46.3) fL RDW Coeff of Concha (11.5-14.5) % Plt Count (130-400) K/uL MPV (9.4-12.4) fL Immature Gran % (Auto) % Neut % (Auto) % Lymph % (Auto) % [place] % (Auto) % Eos % (Auto) % Baso % (Auto) % Neut # (Auto) (1.40-6.50) K/uL Lymph # (Auto) (1.20-3.40) K/uL [place] # (Auto) (0.11-0.59) K/uL Eos # (Auto) (0.00-0.50) K/uL Baso # (Auto) (0.00-0.20) K/uL Immature Gran # (Auto) (0.01-0.20) K/uL POC Sodium 138 (135-144) mmol/L Sodium (136-145) mmol/L POC Potassium 4.8 (3.3-5.0) mmol/L Potassium (3.5-5.1) mmol/L POC Chloride 103 (101-112) mmol/L Chloride (98-107) mmol/L Carbon Dioxide (21-32) mmol/L POC Total CO2 24 (24-31) mmol/L Anion Gap (3-11) POC Anion Gap 16.0 (16-25) mmol/L POC BUN 12 (7-18) mg/dl BUN (6-23) mg/dl Creatinine (0.6-1.4) mg/dl POC Creatinine 1.2 (0.6-1.3) mg/dl Est Cr Clr Drug Dosing ml/min Est GFR ( Amer) ml/min Est GFR (Non-Af Amer) ml/min BUN/Creatinine Ratio (10-20) Glucose (70-99(Fasting)) mg/dl POC Glucose (other) 219 H (70-99) mg/dl Calcium (8.6-10.3) mg/dl POC Ioniz Calcium Shayan 1.29 (1.12-1.32) mmol/l Magnesium (1.7-2.4) mg/dl Total Bilirubin (0.2-1.0) mg/dl AST (13-39) U/L ALT (7-52) U/L Alkaline Phosphatase (34-104) U/L Total Creatine Kinase (30-223) U/L Total Protein (6.0-8.3) gm/dl Albumin (3.4-5.0) gm/dl Globulin (2.5-4.0) gm/dl Albumin/Globulin Ratio (0.9-2) Prolactin ng/ml Administered Medications Magnesium Sulfate/Dextrose (Magnesium Sulfate / D5w) 1 gm in 100 mls @ 50 mls/hr IV Q2H SEA Stop: 04/08/23 22:29 Last Admin: 04/08/23 19:39 Dose: 50 mls/hr Documented By: HARI Sodium Chloride (Nss) 1,000 mls @ 75 mls/hr IV .[id number] SEA Stop: 04/09/23 21:09 Last Admin: 04/08/23 19:39 Dose: 75 mls/hr Documented By: HARI Discontinued Medications Levetiracetam 2,000 mg/ Sodium (Chloride) 270 mls @ 999 mls/hr IV NOW STA Stop: 04/08/23 16:07 Last Infusion: 04/08/23 16:33 Dose: 0 mls/hr Documented By: Admin: 04/08/23 16:09 Dose: 999 mls/hr Documented By: ORTIZ Lorazepam (Lorazepam 2 Mg/1 Ml Vial) Confirm Administered Dose 4 mg .ROUTE .STK- MED ONE Stop: 04/08/23 15:35 Last Admin: 04/08/23 19:21 Dose: Not Given Documented By: HARI Lorazepam (Lorazepam 2 Mg/1 Ml Vial) 1 mg IV NOW STA Stop: 04/08/23 15:38 Last Admin: 04/08/23 15:42 Dose: 1 mg Documented By: ORTIZ Lorazepam (Lorazepam 2 Mg/1 Ml Vial) 1 mg IV NOW STA Stop: 04/08/23 15:48 Last Admin: 04/08/23 15:50 Dose: 1 mg Documented By: ORTIZ Imaging Data Radiologist's Impression: Head CT 04/08/23 15:49 CT head/brain wo con CLINICAL HISTORY: seizures, hx meningioma on eliquis Technique: Contiguous axial CT images of the head were acquired from the base of the skull to the vertex without intravenous contrast administration. Images were viewed in brain, subdural and bone windows. Automated dose lowering techniques and/or adjustment according to patient size were utilized for this exam. Comparison: Comparison is made to CT head 08/29/2021 Findings: Previously noted left posterior lesion about the falx appears to have enlarged, measuring 23 mm compared to 10 mm on prior exam. There is a 20 mm left occipitally based meningioma which was not well-seen on prior exam. Additional foci of meningiomas are essentially unchanged. Old encephalomalacia in the left frontal lobe is again noted. Imaged portions of the paranasal sinuses and mastoid air cells are clear. The orbits appear normal. Postsurgical changes of the calvarium are seen. Impression: Likely interval enlargement of left posterior midline meningioma. Left occipital meningioma was not well seen on prior exam and may be new or significantly enlarged. Remaining lesions are unchanged. No acute abnormalities are seen. ACT 112: Negative or not required by law. Electronically signed by: Tez You M.D. 04/08/2023 4:39 PM Discharge Plan Visit Data Chief Complaint: Seizure Stated Complaint: SEIZURE ED Provider: Brian Means Discharge Problem: Breakthrough seizure, History of liver cancer Patient Disposition: Being Evaluated by Hospitalist
[2023-04-08 16:01] LABS: Albumin Level 3.7 gm/dl (3.4-5.0); Bilirubin,Total 0.6 mg/dl (0.2-1.0); Calcium 10.1 mg/dl (8.6-10.3); Magnesium 1.6 mg/dl (1.7-2.4); Potassium 4.8 mmol/L (3.5-5.1)
[2023-04-08 16:07] LABS: BUN Creatinine Ratio 10.4 (10-20); Creatinine Clr Calc Pharmacy 49.1 ml/min; Est GFR (African American) 66.7 ml/min; Est GFR (Non-African American) 57.6 ml/min; Globulin 3.7 gm/dl (2.5-4.0); Total Protein 7.4 gm/dl (6.0-8.3)
--- NOTE | 2023-04-08 16:42 | CT Scan Report ---
CT head/brain wo con CLINICAL HISTORY: seizures, hx meningioma on eliquis Technique: Contiguous axial CT images of the head were acquired from the base of the skull to the ramakrishna melia without intravenous contrast administration. Images were viewed in brain, subdural and bone windo ws. Automated dose lowering techniques and/or adjustment according to patient size were utilized for this exam. Comparison: Comparison is made to CT head 08/29/2021 Findings: Previously noted left posterior lesion about the falx appears to have enlarged, measuring 23 mm clyde red to 10 mm on prior exam. There is a 20 mm left occipitally based meningioma which was not well-see n on prior exam. Additional foci of meningiomas are essentially unchanged. Old encephalomalacia in th e left frontal lobe is again noted. Imaged portions of the paranasal sinuses and mastoid air cells are clear. The orbits appear normal. Postsurgical changes of the calvarium are seen. Impression: Likely interval enlargement of left posterior midline meningioma. Left occipital meningioma was not w ell seen on prior exam and may be new or significantly enlarged. Remaining lesions are unchanged. No acute abnormalities are seen. ACT 112: Negative or not required by law. Electronically signed by: Tez You M.D. 04/08/2023 4:39 PM
[2023-04-08] MEDS ORDERED: MAGNESIUM HYDROXIDE SUSP 30 ML UDC PO PRN (17:56)
[2023-04-08] MEDS ORDERED: POLYETHYLENE (MIRALAX) 17 GM PACK PO PRN (17:56)
[2023-04-08] MEDS ORDERED: ACETAMINOPHEN 325 MG TAB PO PRN (17:56)
[2023-04-08] MEDS ORDERED: ALUMINUM/MAGNESIUM SUSP 30 ML UDC PO PRN (17:56)
[2023-04-08] MEDS ORDERED: ONDANSETRON INJ 2 MG/ML 2 ML VIAL IV PRN (17:56)
--- NOTE | 2023-04-08 18:09 | History & Physical Report ---
Date of Service April 08, 2023 Assessment & Plan (1) Seizure disorder: (2) History of liver cancer: (3) CAD (coronary artery disease): (4) Type 2 diabetes mellitus: (5) Hypertension: (6) Dyslipidemia: Plan Mr. Vanessa Sanchez is a 72 year old male with known seizure disorder presents after experiencing a witnessed seizure today. They were on their way to [place] and received an email from their moving company which caused him to be stressed and 'annoyed' and stated " I think I am going to have a stroke from this" On the way to [place] he started not responding and was not answering questions. She turned the car around and brought him to [facility]. When she was asking him questions, he was having word finding difficulties; right upward gaze, eye fluttering; became non verbal. Last known well around 2:30 today. Last known seizure was December 19, 2022; prior to that was years before. Seems to have seizures around stressful situations. He does get SOB with walking up a flight of steps. He was recently admitted to the hospital at the [facility] with seizure and encephalopathy; "post embolization syndrome" in December in [place]. Since then, he has been more sedentary since then. Earlier this month, they were back in [place]; he had a seizure again. All of the history was obtained from his , Annabelle on the phone as the patient was postictal on examination. He is in the process of moving to [place] and has had increased stress which appear to trigger his seizures. Patient has had numerous meningiomas removed previously. He currently is being treated with chemotherapy for HCC s/p liver resection 04/2022 and is now under the care of Dr. 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 Subsequently he had a peripheral portal vein DVT and has been on Eliquis since January. Following with oncology for HCC, things stable, but moving to [place] soon. No seizures since December and compliant with med. Today, Head CT revealed left posterior midline meningioma. recurrent disease, S/P radiation treatment in September 2021 at [facility]. Recurrent disease noted in the left portal vein region measuring 2.1 x 1.8 x 1.5 cm ( 10/01/2022 ) No leukocytosis; hypomanic 1.6; otherwise labs unremarkable. No alcohol, tobacco or recreational drug use. Pt with known seizure disorder and meningiomas with HCC is now postictal. Will monitor and keep on seizure precautions, replace Magnesium, keep NPO until passing dysphagia screening, Neurology consultation and IVF while NPO. Confirmed Full Code with pt . Seizure Disorder: acute uncontrolled Secondary to chronic meningiomas Takes Keppra and Zonisamide; continue Received additional 2 G Keppra in ED Keppra and Zonisamide levels ordered and pending Head CT: Left posterior midline meningiomas NPO for now; will need dysphagia screen prior to diet order HCC: chronic stable Under the care of Dr. Little Takes Lenvatinib;continue; will bring in home med Hypomagnesemia: acute uncontrolled serum Mg+ 1.6; replace with 2G and recheck in AM no ectopy on ECG/monitor CAD: Chronic stable s/p stents x2 in 2017 H/O portal vein DVT: chronic stable Occurred in January 2023 and was placed on Eliquis; on hold due to post ictal; Heparin SQ for now. If pt NPO tomorrow and still postictal consider alternative anticoagulants Diabetes Mellitus, Type 2: chronic stable takes Metformin and Zetia; hold while ipt Takes Basaglar and Novolog; will keep on SSI ACHS while here HTN: chronic stable takes Metoprolol; continue normotensive in ED HLD: chronic stable Takes atorvastatin; contin Hypothyroidism: Chronic stable Takes levothyroxine;continue Disposition: PCP: Dr. Braxton Code Status: Full Code VTE Prophylaxis: On Eliquis; on hold due to post ictal; Heparin SQ for now. if pt NPO consider alternative anticoagulants I spent a total of 88 minutes coordinating, documenting, and providing care for this patient excluding time spent in the performance of separately billed services. All of the aforementioned completed while collaborating with the assigned attending physician for a full treatment plan. Please see their addendum for further details. History of Present Illness Chief Complaint: seizure Primary Care Provider: Giovanny Braxton MD Mr. Vanessa Sanchez is a 72 year old male with known seizure disorder presents after experiencing a witnessed seizure today. They were on their way to [place] and received an email from their [employer] which caused him to be stressed and 'annoyed' and stated " I think I am going to have a stroke from this" On the way to [place] he started not responding and was not answering questions. She turned the car around and brought him to [facility]. When she was asking him questions, he was having word finding difficulties; right upward gaze, eye fluttering; became non verbal. Last known well around 2:30 today. Last known seizure was December 19, 2022; prior to that was years before. Seems to have seizures around stressful situations. He does get SOB with walking up a flight of steps. He was recently admitted to the hospital at the [facility] with seizure and encephalopathy; "post embolization syndrome" in December in [place]. Since then, he has been more sedentary since then. Earlier this month, they were back in [place]; he had a seizure again. All of the history was obtained from his , Annabelle on the phone as the patient was postictal on examination. He is in the process of moving to [place] and has had increased stress which appear to trigger his seizures. Patient has had numerous meningiomas removed previously. He currently is being treated with chemotherapy for HCC s/p liver resection 04/2022 and is now under the care of Dr. 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 Subsequently he had a peripheral portal vein DVT and has been on Eliquis since January. Was recently hospitalized in [place] for not taking his medications for 2 days. He hasn't had seizure since. says he doesn't do much during the day, then gets winded quickly. Following with oncology for HCC, things stable, but moving to [place] soon. No seizures since December and compliant with med. Today, Head CT revealed left posterior midline meningioma. recurrent disease, S/P radiation treatment in September 2021 at [facility]. Recurrent disease noted in the left portal vein region measuring 2.1 x 1.8 x 1.5 cm ( 10/01/2022 ) No leukocytosis; hypomanic 1.6; otherwise labs unremarkable. No alcohol, tobacco or recreational drug use. Pt with known seizure disorder and meningiomas with HCC is now postictal. Will monitor and keep on seizure precautions, replace Magnesium, keep NPO until passing dysphagia screening, Neurology consultation and IVF while NPO. Confirmed Full Code with pt . Patient will be admitted for further evaluation and management. Please see A/P for further details. Allergies Allergy/AdvReac Type Severity Reaction Status Date / Time ofloxacin Allergy Intermediate INFLAMMATION, Verified 04/08/23 17:42 ITCHY RASH sulfamethoxazole Allergy Intermediate RASH Verified 04/08/23 17:42 trimethoprim Allergy Intermediate RASH Verified 04/08/23 17:42 Home Medications Medication Instructions Recorded Confirmed Type apixaban 5 mg tablet (Eliquis) 5 mg PO BID 01/03/23 04/08/23 History atorvastatin 80 mg tablet 80 mg PO DAILY 01/03/23 04/08/23 History ezetimibe 10 mg tablet 10 mg PO DAILY 01/03/23 04/08/23 History insulin aspart U-100 100 unit/mL 8 unit subcut .LUNCH 01/03/23 04/08/23 History (3 mL) subcutaneous pen (Novolog FlexPen U-100 Insulin aspart) insulin aspart U-100 100 unit/mL 12 unit subcut .SUPPER 01/03/23 04/08/23 History (3 mL) subcutaneous pen (Novolog FlexPen U-100 Insulin aspart) insulin glargine 100 unit/mL (3 33 unit subcut HS 01/03/23 04/08/23 History mL) subcutaneous pen (Basaglar KwikPen U-100 Insulin) levetiracetam 1,000 mg tablet 2,000 mg PO BID 01/03/23 04/08/23 History metformin 1,000 mg tablet 500 mg PO BID 01/03/23 04/08/23 History metoprolol succinate 50 mg 25 mg PO DAILY 01/03/23 04/08/23 History tablet,extended release 24 hr sildenafil 50 mg tablet 50 mg PO DIRECTED 01/03/23 04/08/23 History zonisamide 100 mg capsule 100 mg PO BID 01/03/23 04/08/23 History Udderly Smooth 1 applic topical DIRECTED 04/08/23 04/08/23 History lenvatinib 12 mg/day (4 mg x 3) 12 mg PO QAM 04/08/23 04/08/23 History capsule (Lenvima) levothyroxine 25 mcg tablet 25 mcg PO QAM 04/08/23 04/08/23 History ondansetron HCl 8 mg tablet 8 mg PO QAM 04/08/23 04/08/23 History prochlorperazine maleate 10 mg 10 mg PO Q6 PRN Nausea 04/08/23 04/08/23 History tablet sodium chloride 0.65 % nasal spray 2 spray intranasal DIRECTED PRN 04/08/23 04/08/23 History aerosol (Saline Nasal) Nasal Congestion thiamine HCl (vitamin B1) 100 mg 100 mg PO DAILY 04/08/23 04/08/23 History tablet (Vitamin B-1) Past Med/Surg History Medical History (Updated 04/08/23 @ 18:58 by AKILAH Bolton) Brain mass HX OF LEFT FRONTAL BRAIN MASS CAD (coronary artery disease) Degenerative disc disease Dyslipidemia HX OF Fatty liver Hypertension HX OF Kidney stones Osteoarthritis Peripheral neuropathy LOWER EXTREMITIES Pulmonary fibrosis Seizure disorder LEFT FRONTAL MASS REMOVED 4 YEARS AGO>SEIZURE AFTER SURGERY LAST EVENT 2 YRS AGO/FOLLOWS DR OTERO ([facility]) Type 2 diabetes mellitus Surgical History History of colonoscopy History of craniotomy 4 YEARS AGO (MENINGIAL TUMOR) > [place] PT REPORTS BRAIN SURGERY 5-6 YR AGO History of cystoscopy History of left cataract surgery FEB 18 2020 History of lithotripsy MOST RECENT FEB 26 2020 History of lumbar surgery X 2 History of tooth extraction Hx of vasectomy AND REVERSAL Status post coronary artery stent placement 2 STENTS PLACED 6 YEARS AGO ([facility]) FOLLOWED BY DR. NGUYỄN Family History Other Alzheimer disease Family history of esophageal cancer Social History Smoking Status: Former smoker Second Hand Exposure: No; Do You Dip or Chew Tobacco: No; Hx Alcohol Use: No Hx Substance Use: No Preferred Language: Tamazight Communication Ability: Effective Tech Writer Required: No Beliefs That Will Affect Care: None marital status: Current Living Situation: Spouse Current Living Situation Comment: lives at home with his current occupational status: retired How many Children do You have: 2 Feels Safe at Home: Yes Review of Systems Review of Systems: Unobtainable due to cognitive status Physical Exam Physical Exam: See. Dr. Taylor's addendum for physical examination Results & Data Results & Data Vital Signs (Past 12 Hours) Vital Signs Temp Pulse Resp BP Pulse Ox O2 Del Method 04/08/23 16:30 75 19 97 Room Air 04/08/23 16:30 129/79 96 Room Air 04/08/23 16:21 139/83 04/08/23 16:21 76 17 97 Room Air 04/08/23 16:15 134/82 04/08/23 16:15 83 21 98 Room Air 04/08/23 16:13 82 12 97 Room Air 04/08/23 16:13 140/86 04/08/23 16:12 96 04/08/23 15:50 86 24 95 04/08/23 15:50 149/97 H 04/08/23 15:45 151/90 H 04/08/23 15:45 84 18 98 04/08/23 15:40 81 17 95 04/08/23 15:40 153/96 H 04/08/23 15:39 80 04/08/23 15:41 Room Air 04/08/23 15:32 36.6 C 81 18 163/94 H 97 Room Air Laboratory Results Short CBC 04/08/23 Range/Units 15:30 WBC 3.71 L (4.8-10.8) K/ul Hgb 14.1 (14.0-18.0) g/dl Hct 42.8 (42.0-52.0) % Plt Count 181 (130-400) K/uL BMP 04/08/23 15:30 Sodium 137 Potassium 4.8 Chloride 104 Carbon Dioxide 26 BUN 13 Creatinine 1.25 Glucose 216 H Calcium 10.1 Cardiac Enzymes 04/08/23 Range/Units 15:30 Total Creatine Kinase 107 (30-223) U/L Liver Function 04/08/23 Range/Units 15:30 Total Bilirubin 0.6 (0.2-1.0) mg/dl AST 45 H (13-39) U/L ALT 35 (7-52) U/L Alkaline Phosphatase 203 H (34-104) U/L Albumin 3.7 (3.4-5.0) gm/dl Diagnostic Findings Head CT 04/08/23 15:49 CT head/brain wo con CLINICAL HISTORY: seizures, hx meningioma on eliquis Technique: Contiguous axial CT images of the head were acquired from the base of the skull to the vertex without intravenous contrast administration. Images were viewed in brain, subdural and bone windows. Automated dose lowering techniques and/or adjustment according to patient size were utilized for this exam. Comparison: Comparison is made to CT head 08/29/2021 Findings: Previously noted left posterior lesion about the falx appears to have enlarged, measuring 23 mm compared to 10 mm on prior exam. There is a 20 mm left occipitally based meningioma which was not well-seen on prior exam. Additional foci of meningiomas are essentially unchanged. Old encephalomalacia in the left frontal lobe is again noted. Imaged portions of the paranasal sinuses and mastoid air cells are clear. The orbits appear normal. Postsurgical changes of the calvarium are seen. Impression: Likely interval enlargement of left posterior midline meningioma. Left occipital meningioma was not well seen on prior exam and may be new or significantly enlarged. Remaining lesions are unchanged. No acute abnormalities are seen. ACT 112: Negative or not required by law. Electronically signed by: Tez You M.D. 04/08/2023 4:39 PM Code Status & VTE Plan Code Status Full code in the event of cardiac or respiratory arrest VTE Prophylaxis Plan VTE Prophylaxis will be ordered: Yes Supervising Physician Co-Signing Physician Notes Patient seen and examined Had seizures today as detailed by Jose L ISBELL Currently post ictal On exam, General: Drowsy, grunts to touch. In no distress Eyes: Opens eye to noxious stimuli and falls back to sleep ENMT: External ear and nose normal Respiratory: Normal respiratory effort, no respiratory distress, lungs clear to auscultation, no crackles and no wheezes Cardiovascular: RRR S1 S2 Gastrointestinal (Abdomen): Abdomen is not distended, soft, non-tender to palpation, no guarding, no palpable hepatosplenomegaly, normal bowel sounds Musculoskeletal: No pedal edema Neurologic: Very drowsy, Moves all extremities to noxious stimuli, Psychiatric: Unable to assess Seizure episodes Head CT noted likely interval enlargement of left posterior midline meningioma. Got ativan in ER to abort seizures per RN Got keppra loading Follow up keppra and zonisamide level Neuro consult NPO until more awake then dysphagia screen IVF ISS for now. Monitor accucheck q6h Replete hypomagnesemia
[2023-04-08] MEDS ORDERED: GLUCAGON FOR INJ 1 MG VIAL SQ PRN (18:48)
[2023-04-08] MEDS ORDERED: PHARMACY GLYCEMIC MGMT CONSULT PRN (18:48)
[2023-04-08] MEDS ORDERED: CARBOHYDRATES FOR HYPOGLYCEMIA PO PRN (18:48)
[2023-04-08] MEDS ORDERED: DEXTROSE 50% 50 ML SYRINGE IV PRN (18:48)
[2023-04-08] MEDS ORDERED: GLUCOSE 40% GEL 15 GM TUBE PO PRN (18:48)
[2023-04-08] MEDS ORDERED: GLUCOSE 10 TAB/TUBE PO PRN (18:48)
[2023-04-08] MEDS: SODIUM CHLORIDE 0.9% 1,000 ML IV SCH (19:39)
[2023-04-08] MEDS: MAGNESIUM SULFATE / D5W 1 GM/100 ML BAG IV SCH ×2 (19:39→21:35)
[2023-04-08] MEDS ORDERED: ONDANSETRON 8MG OD TAB PO PRN (20:31)
[2023-04-08] MEDS ORDERED: INSULIN ASPART PER UNIT CHARGE SC SCH ×2 (21:00)
[2023-04-08] MEDS ORDERED: HEPARIN SOD 5,000 UNIT/0.5 ML VIAL SQ ONE (21:00)
[2023-04-08] MEDS ORDERED: levETIRAcetam 500 MG TAB PO SCH (21:00)
[2023-04-08] MEDS ORDERED: LANTUS PER UNIT CHARGE SQ SCH (21:00)
[2023-04-08] MEDS: INSULIN ASPART PER UNIT CHARGE SC SCH (21:38)
[2023-04-08] MEDS: ZONISAMIDE 100 MG CAPSULE PO SCH (22:38)
[2023-04-09] MEDS: INSULIN ASPART PER UNIT CHARGE SC SCH ×4 (00:37→18:25)
[2023-04-09] MEDS ORDERED: LORazepam 2 MG/1 ML VIAL IV STA ×4 (02:52→22:29)
[2023-04-09] MEDS ORDERED: LORazepam 2 MG/1 ML VIAL ONE (03:02)
[2023-04-09 03:29] LABS: Hematocrit (blood only) 36.7 % (42.0-52.0); Hemoglobin 12.3 g/dl (14.0-18.0); Mean Corpuscular Hemoglobin 30.4 pg (25.0-34.0); Mean Corpuscular Hgb Conc 33.5 g/dL (32.0-36.0); Mean Corpuscular Volume 90.8 fL (80.0-100.0); Mean Platelet Volume 9.5 fL (9.4-12.4); Platelet Count 134 K/uL (130-400); RDW Standard Deviation 53.2 fL (36.4-46.3); Red Blood Count 4.04 M/uL (4.70-6.10); White Blood Count 3.55 K/ul (4.8-10.8)
[2023-04-09 03:43] LABS: Albumin Level 3.2 gm/dl (3.4-5.0); BUN Creatinine Ratio 9.3 (10-20); Bilirubin,Total 0.6 mg/dl (0.2-1.0); Calcium 9.4 mg/dl (8.6-10.3); Creatinine Clr Calc Pharmacy 65.5 ml/min; Est GFR (African American) 90.7 ml/min; Est GFR (Non-African American) 78.2 ml/min; Globulin 3.2 gm/dl (2.5-4.0); Magnesium 1.7 mg/dl (1.7-2.4); Phosphorus 2.8 mg/dl (2.5-4.9); Potassium 4.4 mmol/L (3.5-5.1); Total Protein 6.4 gm/dl (6.0-8.3)
[2023-04-09] MEDS ORDERED: SODIUM CHLORIDE 0.9% IV STA (04:01)
[2023-04-09] MEDS ORDERED: FOSPHENYTOIN IV STA (04:01)
[2023-04-09] MEDS ORDERED: MGPE IV STA (04:01)
[2023-04-09] MEDS: MAGNESIUM SULFATE / D5W 1 GM/100 ML BAG IV SCH ×2 (04:04→06:09)
--- NOTE | 2023-04-09 04:53 | Communication Note ---
Date of Service: April 09, 2023 Contacted via the transfer center re: Mr. Sanchez, 72 M with history of recurrent meningiomas and epilepsy who presented with seizure. Takes Keppra 1G bid and zonisamide 100mg bid per outpatient neurology note from February 19. Had a seizure around 2:30pm on 04/08 consisting of slurred speech and rightward gaze deviation, which is his typical semiology. No recent illnesses, missed medication doses, or changes in sleep, but he did have some stress (his usual trigger) today related to moving. Has had a total of three or four seizures since the first event, the last one starting around 3:30am and lasting 15-20 minutes. Was loaded with Keppra 2G in the ED and has received multiple doses of Ativan, including 1mg x 2 for this most recent event. Seen by critical care and felt to be stable to remain at med-surg level of care. Advised loading with fosphenytoin 20mg/kg IV, then continuing phenytoin 100mg tid in addition to his other medications. Should send Keppra and zonisamide levels, though the results will not be immediately available. Can get routine EEG and neurology consult in AM. If he has further breakthrough seizures tonight after the fosphenytoin load, may need transfer for continuous EEG, though he likely would need an airway prior to transfer in that case.
[2023-04-09 04:58] LABS: iSTAT Allen Test Pass; iSTAT Art Bld Gas pCO2 Correct 43 mmHg (35-46); iSTAT Art Bld Gas pH Corrected 7.338 (7.35-7.45); iSTAT Arterial Blood Gas HCO3 23 meg/L (19-24); iSTAT Arterial Blood Gas pCO2 44 mmHg (35-46); iSTAT Arterial Blood Gas pH 7.33 (7.35-7.45); iSTAT Arterial Blood Gas pO2 202 mmHg (80-95); iSTAT Arterial Blood Gas pO2 C 199; iSTAT Carbon Dioxide 25 mmol/L (24-31); iSTAT Hematocrit 30 % (42-52); iSTAT Hemoglobin 10.2 g/dl (14.0-18.0); iSTAT Potassium 3.8 mmol/L (3.3-5.0); iSTAT Site R Radial; iSTAT Sodium 137 mmol/L (135-144)
[2023-04-09] MEDS ORDERED: SODIUM CHLORIDE 0.9% 500 ML IV SCH (05:30)
[2023-04-09] MEDS: LEVOTHYROXINE SODIUM 25 MCG TABLET PO SCH (06:09)
[2023-04-09 07:06] LABS: Estimated Average Glucose 154 mg/dl
--- NOTE | 2023-04-09 07:25 | Communication Note ---
Date of Service: April 09, 2023 Patient had an episode of seizure at 9:30pm gave about 1.5mg iv ativan.Went and saw patient seemed to be in postictal.He also received night iv keppra 2000mg. Could not give his po zonisamide. Another episode at 2:30am got iv ativan 1mg. And another 3:30am gave another 1mg iv ativan and called Neurology Sanket Santa who is radiation therapy technologist and at that time patient was still seizing and gave another dose of iv ativan 1mg. Neurology recommended to load with fosphenytoin. And they wanted to transfer there but wanted to discuss with their critical care but at that time [facility] was busy. And they also wanted our critical to evaluate to see if he needs to be intubated. By the time I went to see patient he was having mild shaking of right leg and stopped in few seconds.ICU also evaluated patient at bedside and thought he was not in status epilepticus and his vitals were stable and he saturating fine on room air.Could speak few words at that time. [facility] called back and both critical care and Neurology were on conference and since seizures stopped now they want to wait and see how he does after fosphenytoin. If he seizes again to call back them for transfer. So far he did ok.Also ordered MRI brain. Called twice and notified her. She said she will come in am but wants updates if anything changes meanwhile.Will Notify Am providers.
--- NOTE | 2023-04-09 07:50 | Communication Note ---
Date of Service: April 09, 2023 Patient became hypotensive after fosphenytoin loading dose and improved with IV fluids. Thanks
--- NOTE | 2023-04-09 08:05 | Electrocardiogram Report ---
Test Reason : Blood Pressure : / mmHG Vent. Rate : 086 BPM Atrial Rate : 086 BPM P-R Int : 136 ms QRS Dur : 084 ms QT Int : 356 ms P-R-T Axes : 064 016 047 degrees QTc Int : 426 ms Normal sinus rhythm Normal ECG When compared with ECG of 03-JAN-2023 16:55, No significant change was found Confirmed by Kobe Pat ([id number]) on 04/09/2023 8:04:54 AM Referred By: REFERRED SELF Confirmed By:Blas Pat
[2023-04-09] MEDS: APIXABAN 5 MG TABLET PO SCH ×2 (10:11→20:18)
[2023-04-09] MEDS: ATORVASTATIN 40 MG TAB PO SCH (10:11)
[2023-04-09] MEDS: ZONISAMIDE 100 MG CAPSULE PO SCH ×2 (10:12→20:18)
[2023-04-09] MEDS: METOPROLOL SUCC 25MG EXT REL TAB PO SCH (10:12)
[2023-04-09] MEDS: EZETIMIBE 10 MG TAB PO SCH (10:12)
[2023-04-09] MEDS: THIAMINE HCL 100 MG TAB PO SCH (10:12)
[2023-04-09 13:00] LABS: Appearance Urine Clear (Clear); Bilirubin Urine Negative (Negative); Blood Urine Negative (Negative); Color Urine Yellow; Glucose Urine UA Negative (Negative); Ketones Urine Negative (Negative); Leukocyte Esterase Urine Negative (Negative); Nitrite Urine Negative (Negative); Protein Urine Negative (Negative); Specific Gravity Urine 1.011 (1.000-1.030); Urobilinogen Urine Negative (Negative)
--- NOTE | 2023-04-09 13:15 | Pharmacy Report ---
Pharmacy Glycemic Short Note 2 - Date of Service April 09, 2023 - Glycemic Short BSG Results (Last 24 hours): 04/08/23 04/08/23 04/08/23 15:30 15:37 21:32 Glucose 216 H POC Glucose 113 H POC Glucose (other) 219 H 04/09/23 04/09/23 04/09/23 00:35 03:15 05:07 Glucose 95 POC Glucose 99 108 H POC Glucose (other) 04/09/23 11:56 Glucose POC Glucose 87 POC Glucose (other) OUTPATIENT ANTIDIABETIC REGIMEN: * Lantus 33 units SC HS * Novolog 8 units SC w/ lunch and 12 units SC w/ dinner * Metformin 1000 mg PO BIDM * HbA1c: 7.0% (04/09/23) ASSESSMENT: * 72 yo M admitted on 04/08/23 secondary to seizures. Pharmacy has been consulted to assist with inpatient glycemic management. Patient is a Type 2 diabetic as an outpatient. Please refer to outpatient regimen and most recent HbA1c above. * Received 12 units of Lantus last evening and BSGs have been: 150-49-455-87 mg/dL. Remains NPO at this time. Will reduce Lantus to 5 units HS until PO intake is better. * Continue with weight/stress 2 Novolog dosing. PLAN FOR INPATIENT GLYCEMIC CONTROL: * Hold outpatient oral diabetes medications * Basal insulin * Lantus 5 units SC HS * Bolus insulin * NovoLog per scale ACHS or Q6hrs while NPO * Goal Range: Low 110 mg/dL - High 140 mg/dL * Correction Factor: 35 mg/dL/unit * Nutritional / Prandial insulin per carb ratio of 1 unit per 12 grams CHO consumed
[2023-04-09] MEDS ORDERED: GADOBUTROL 65ML VIAL IV ONE (14:21)
--- NOTE | 2023-04-09 14:59 | Magnetic Resonance Report ---
MR brain wo/w con CLINICAL HISTORY: meningiomas. alex TECHNIQUE: Multiplanar and multisequence MR images of the brain were obtained prior to and following administration of gadolinium contrast. Comparison: Comparison is made to MRI brain 08/29/2021 FINDINGS: No abnormal restricted diffusion is identified. The white matter is unremarkable. The ventricular sys tem is normal in appearance. There is interval evolution of previously noted meningeal lesions. The p osterior falx lesion demonstrates a lesser degree of enhancement (series 13 image 29), as does a left parietotemporal lesion (image 36). However there is interval enlargement of a left occipital lesion (image 45) which previously measured 6 mm compared to 10 mm today. There is also interval enlargement of a high posterior falx lesion which measures 11 mm compared to 4 mm in prior exam (image 62). Morales tional foci of disease are essentially unchanged from prior. Old encephalomalacia in the left frontal lobe is again noted. There is no mass effect or midline shift. There is no evidence of acute intrapa renchymal hemorrhage. No extra axial fluid collections are seen. The corpus callosum, pituitary gland , and cerebellar tonsils appear grossly unremarkable. Flow voids of the major intracranial arterial vessels are identified. The imaged portions of the para nasal sinuses, mastoid air cells, and orbits are unremarkable. IMPRESSION: Numerous meningiomas with evolutionary changes as above. Stable cortical atrophy and small vessel dis ease. ACT 112: Negative or not required by law. Electronically signed by: Tez You M.D. 04/09/2023 2:58 PM
--- NOTE | 2023-04-09 15:36 | Hospitalist Progress Note ---
Date of Service April 09, 2023 Assessment & Plan (1) Seizure disorder: (2) History of liver cancer: (3) CAD (coronary artery disease): (4) Type 2 diabetes mellitus: (5) Hypertension: (6) Dyslipidemia: Plan Mr. Vanessa Sanchez is a 72 year old male with known seizure disorder presents after experiencing a witnessed seizure today. They were on their way to [place] and received an email from their moving company which caused him to be stressed and 'annoyed' and stated " I think I am going to have a stroke from this" On the way to [place] he started not responding and was not answering questions. She turned the car around and brought him to [facility]. When she was asking him questions, he was having word finding difficulties; right upward gaze, eye fluttering; became non verbal. Last known well around 2:30 today. Last known seizure was December 19, 2022; prior to that was years before. Seems to have seizures around stressful situations. He does get SOB with walking up a flight of steps. He was recently admitted to the hospital at the [facility] with seizure and encephalopathy; "post embolization syndrome" in December in [place]. Since then, he has been more sedentary since then. Earlier this month, they were back in [place]; he had a seizure again. All of the history was obtained from his , Annabelle on the phone as the patient was postictal on examination. He is in the process of moving to [place] and has had increased stress which appear to trigger his seizures. Patient has had numerous meningiomas removed previously. He currently is being treated with chemotherapy for HCC s/p liver resection 04/2022 and is now under the care of Dr. 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 Subsequently he had a peripheral portal vein DVT and has been on Eliquis since January. Following with oncology for HCC, things stable, but moving to [place] soon. No seizures since December and compliant with med. Today, Head CT revealed left posterior midline meningioma. recurrent disease, S/P radiation treatment in September 2021 at [facility]. Recurrent disease noted in the left portal vein region measuring 2.1 x 1.8 x 1.5 cm ( 10/01/2022 ) No leukocytosis; hypomanic 1.6; otherwise labs unremarkable. No alcohol, tobacco or recreational drug use. Pt with known seizure disorder and meningiomas with HCC is now postictal. Will monitor and keep on seizure precautions, replace Magnesium, keep NPO until passing dysphagia screening, Neurology consultation and IVF while NPO. Confirmed Full Code with pt . Seizure Disorder: acute uncontrolled Secondary to chronic meningiomas Takes Keppra and Zonisamide Received additional 2 G Keppra in ED Keppra and Zonisamide levels ordered and pending Head CT: Left posterior midline meningiomas NPO for now; will need dysphagia screen prior to diet order overnight seizures again - program director/morning show host discussed w/ neurology and ICU Pt was loaded w/ fosphenytoin MRI brain ordered Discussed w/ neurology - Dr. Payton today (04/09) - EEG. cont Keppra 2g bid, fosphenytoin 150 mg bid. CTA head and neck. Resume eliquis when able to take PO. HCC: chronic stable Under the care of Dr. Little Takes Lenvatinib Hypomagnesemia: replace and monitor CAD: Chronic stable s/p stents x2 in 2018 H/O portal vein DVT: chronic stable Occurred in January 2023 and was placed on Eliquis; on hold due to post ictal; Heparin SQ for now. Resume eliquis when able to take PO Diabetes Mellitus, Type 2: chronic stable takes Metformin and Zetia; hold while ipt Takes Basaglar and Novolog; will keep on SSI ACHS while here HTN: chronic stable takes Metoprolol; continue normotensive in ED HLD: chronic stable Takes atorvastatin; contin Hypothyroidism: Chronic stable Takes levothyroxine;continue Disposition: PCP: Dr. Braxton Code Status: Full Code VTE Prophylaxis: On Eliquis; on hold due to post ictal; Heparin SQ for now. if pt NPO consider alternative anticoagulants Admission and Anticipated Discharge Date Admission Date: April 08, 2023 Subjective Pt seen in follow up seizures Had seizures overnight (pls see program director/morning show host note for more detail) Loaded with fophenytoin at 4am - no more seizures Pt is now laying in bed , very drowsy, however appears comfortable. Vital signs monitored closely. Discussed w/ RN at the bedside. Discussed w/ neurology firther plan - imaging and medication management. Updated pt's over the phone - she would like we review pt's records from his hospital stay at [facility]. Made Jan aware to pls try to obtain records tmrw. Pt also discussed w/ program director/morning show host and the next provider Dr. Vazquez. Review of Systems Review of Systems: All systems reviewed & are unremarkable except as noted in Subjective Physical Exam Physical Exam: General: WD/WN M in NAD, sleeping comfortably Eyes: Opens eye to noxious stimuli and falls back to sleep ENMT: External ear and nose normal Respiratory: Normal respiratory effort, no respiratory distress, lungs clear to auscultation, no crackles and no wheezes Cardiovascular: RRR S1 S2 Gastrointestinal (Abdomen): Abdomen is not distended, soft, non-tender to palpation, normal bowel sounds Musculoskeletal: No pedal edema Neurologic: drowsy, but appears comfortable, opens eyes, moves extremities to noxious stimuli Results & Data Results & Data Vital Signs (Past 12 Hours) Vital Signs Temp Pulse Pulse Resp BP BP Pulse Ox 04/09/23 10:51 36.5 C 65 21 118/72 98 04/09/23 08:36 64 04/09/23 06:56 36.6 C 65 17 116/71 97 04/09/23 06:25 66 17 98 04/09/23 06:20 67 18 98 04/09/23 06:15 64 20 97 04/09/23 06:15 117/71 04/09/23 06:10 65 14 97 04/09/23 06:05 64 17 97 04/09/23 06:00 67 18 94 04/09/23 05:55 62 14 95 04/09/23 05:50 64 12 97 04/09/23 05:45 65 15 97 04/09/23 05:45 107/65 04/09/23 05:40 66 24 96 04/09/23 05:35 66 19 96 04/09/23 05:30 66 15 97 04/09/23 05:30 105/61 04/09/23 05:04 65 18 97 04/09/23 05:02 65 22 99 04/09/23 05:00 66 21 98 04/09/23 05:00 107/63 04/09/23 04:58 65 21 97 04/09/23 04:56 66 19 100 04/09/23 04:54 64 17 98 04/09/23 04:52 63 18 97 04/09/23 04:52 102/56 L 04/09/23 04:51 64 17 98 04/09/23 04:51 91/61 L 04/09/23 04:50 64 20 98 04/09/23 04:50 98/63 L 04/09/23 04:48 64 17 100 04/09/23 04:48 104/62 04/09/23 04:46 64 12 100 04/09/23 04:46 108/63 04/09/23 04:44 64 22 100 04/09/23 04:44 103/63 04/09/23 04:42 66 23 100 04/09/23 04:42 104/62 04/09/23 04:40 64 16 100 04/09/23 04:38 64 12 100 04/09/23 04:36 66 19 100 04/09/23 04:36 91/53 L 04/09/23 04:34 67 23 98 04/09/23 04:34 89/56 L 04/09/23 04:32 65 11 L 99 04/09/23 04:32 80/51 L 04/09/23 04:31 70 17 99 04/09/23 04:31 68/43 L 04/09/23 04:30 64 10 L 04/09/23 04:29 60/42 L 04/09/23 04:29 62 25 H 91 04/09/23 04:28 62 15 92 04/09/23 04:28 60/46 L 04/09/23 04:26 55 L 10 L 91 04/09/23 04:26 55/41 L 04/09/23 04:25 64/42 L 04/09/23 04:25 52 L 12 93 04/09/23 04:24 59 L 13 04/09/23 04:22 55 L 14 94 04/09/23 04:20 63 19 96 04/09/23 04:20 164/97 H 04/09/23 04:18 67 17 96 04/09/23 04:16 70 20 97 04/09/23 04:14 67 20 96 04/09/23 04:14 145/92 H 04/09/23 04:12 69 20 95 04/09/23 04:10 69 20 95 04/09/23 04:08 68 20 96 04/09/23 04:08 138/86 04/09/23 04:06 67 21 96 04/09/23 04:04 67 21 95 04/09/23 04:02 68 22 95 04/09/23 04:00 67 25 H 96 O2 Del Method 04/09/23 10:51 Room Air 04/09/23 08:36 04/09/23 06:56 Room Air 04/09/23 06:25 04/09/23 06:20 04/09/23 06:15 04/09/23 06:15 04/09/23 06:10 04/09/23 06:05 04/09/23 06:00 04/09/23 05:55 04/09/23 05:50 04/09/23 05:45 04/09/23 05:45 04/09/23 05:40 04/09/23 05:35 04/09/23 05:30 04/09/23 05:30 04/09/23 05:04 04/09/23 05:02 04/09/23 05:00 04/09/23 05:00 04/09/23 04:58 04/09/23 04:56 04/09/23 04:54 04/09/23 04:52 04/09/23 04:52 04/09/23 04:51 04/09/23 04:51 04/09/23 04:50 04/09/23 04:50 04/09/23 04:48 04/09/23 04:48 04/09/23 04:46 04/09/23 04:46 04/09/23 04:44 04/09/23 04:44 04/09/23 04:42 04/09/23 04:42 04/09/23 04:40 04/09/23 04:38 04/09/23 04:36 04/09/23 04:36 04/09/23 04:34 04/09/23 04:34 04/09/23 04:32 04/09/23 04:32 04/09/23 04:31 04/09/23 04:31 04/09/23 04:30 04/09/23 04:29 04/09/23 04:29 04/09/23 04:28 04/09/23 04:28 04/09/23 04:26 04/09/23 04:26 04/09/23 04:25 04/09/23 04:25 04/09/23 04:24 04/09/23 04:22 04/09/23 04:20 04/09/23 04:20 04/09/23 04:18 04/09/23 04:16 04/09/23 04:14 04/09/23 04:14 04/09/23 04:12 04/09/23 04:10 04/09/23 04:08 04/09/23 04:08 04/09/23 04:06 04/09/23 04:04 04/09/23 04:02 04/09/23 04:00 Laboratory Results 04/09/23 04/09/23 04/09/23 Range/Units 12:30 11:56 05:07 WBC (4.8-10.8) K/ul RBC (4.70-6.10) M/uL Hgb (14.0-18.0) g/dl POC Hgb (14.0-18.0) g/dl Hct (42.0-52.0) % POC Hct (42-52) % MCV (80.0-100.0) fL MCH (25.0-34.0) pg MCHC (32.0-36.0) g/dL RDW Std Deviation (36.4-46.3) fL RDW Coeff of Concha (11.5-14.5) % Plt Count (130-400) K/uL MPV (9.4-12.4) fL Immature Gran % (Auto) % Neut % (Auto) % Lymph % (Auto) % Stephenson % (Auto) % Eos % (Auto) % Baso % (Auto) % Neut # (Auto) (1.40-6.50) K/uL Lymph # (Auto) (1.20-3.40) K/uL Stephenson # (Auto) (0.11-0.59) K/uL Eos # (Auto) (0.00-0.50) K/uL Baso # (Auto) (0.00-0.20) K/uL Immature Gran # (Auto) (0.01-0.20) K/uL Sample Site POC pH (7.35-7.45) POC pCO2 (35-46) mmHg POC pO2 (80-95) mmHg POC HCO3 (19-24) alexander/L POC Base Excess (-9-1.8) alexander/L ABG pH (Temp Correct) (7.35-7.45) ABG pCO2 (Temp Corrct (35-46) mmHg POC ABG pO2 at Pt Temp POC ABG O2 Sat (90-95) % Leonardo Test O2 Delivery Device POC Sodium (135-144) mmol/L Sodium (136-145) mmol/L POC Potassium (3.3-5.0) mmol/L Potassium (3.5-5.1) mmol/L POC Chloride (101-112) mmol/L Chloride (98-107) mmol/L Carbon Dioxide (21-32) mmol/L POC Total CO2 (24-31) mmol/L Anion Gap (3-11) POC Anion Gap (16-25) mmol/L POC BUN (7-18) mg/dl BUN (6-23) mg/dl Creatinine (0.6-1.4) mg/dl POC Creatinine (0.6-1.3) mg/dl Est Cr Clr Drug Dosing ml/min Est GFR ( Amer) ml/min Est GFR (Non-Af Amer) ml/min BUN/Creatinine Ratio (10-20) Glucose (70-99(Fasting)) mg/dl POC Glucose 87 108 H (70-99) mg/dl POC Glucose (other) (70-99) mg/dl Estimat Average Glucose mg/dl Hemoglobin A1c (4.5-5.6) % Calcium (8.6-10.3) mg/dl POC Ioniz Calcium Shayan (1.12-1.32) mmol/l Phosphorus (2.5-4.9) mg/dl Magnesium (1.7-2.4) mg/dl Total Bilirubin (0.2-1.0) mg/dl AST (13-39) U/L ALT (7-52) U/L Alkaline Phosphatase (34-104) U/L Total Creatine Kinase (30-223) U/L Total Protein (6.0-8.3) gm/dl Albumin (3.4-5.0) gm/dl Globulin (2.5-4.0) gm/dl Albumin/Globulin Ratio (0.9-2) Prolactin ng/ml Urine Color Yellow Urine Appearance Clear (Clear) Urine pH 7.0 (4.5-7.5) Ur Specific [place] 1.011 (1.000-1.030) Urine Protein Negative (Negative) Urine Glucose (UA) Negative (Negative) Urine Ketones Negative (Negative) Urine Blood Negative (Negative) Urine Nitrite Negative (Negative) Urine Bilirubin Negative (Negative) Urine Urobilinogen Negative (Negative) Ur Leukocyte Esterase Negative (Negative) Zonisamide Levetiracetam 04/09/23 04/09/23 04/09/23 Range/Units 04:44 03:15 03:15 WBC 3.55 L (4.8-10.8) K/ul RBC 4.04 L (4.70-6.10) M/uL Hgb 12.3 L (14.0-18.0) g/dl POC Hgb 10.2 L (14.0-18.0) g/dl Hct 36.7 L (42.0-52.0) % POC Hct 30 L (42-52) % MCV 90.8 (80.0-100.0) fL MCH 30.4 (25.0-34.0) pg MCHC 33.5 (32.0-36.0) g/dL RDW Std Deviation 53.2 H (36.4-46.3) fL RDW Coeff of Concha 16.0 H (11.5-14.5) % Plt Count 134 (130-400) K/uL MPV 9.5 (9.4-12.4) fL Immature Gran % (Auto) % Neut % (Auto) % Lymph % (Auto) % Stephenson % (Auto) % Eos % (Auto) % Baso % (Auto) % Neut # (Auto) (1.40-6.50) K/uL Lymph # (Auto) (1.20-3.40) K/uL Stephenson # (Auto) (0.11-0.59) K/uL Eos # (Auto) (0.00-0.50) K/uL Baso # (Auto) (0.00-0.20) K/uL Immature Gran # (Auto) (0.01-0.20) K/uL Sample Site R Radial POC pH 7.33 L (7.35-7.45) POC pCO2 44 (35-46) mmHg POC pO2 202 H (80-95) mmHg POC HCO3 23 (19-24) alexander/L POC Base Excess -3.0 (-9-1.8) alexander/L ABG pH (Temp Correct) 7.338 L (7.35-7.45) ABG pCO2 (Temp Corrct 43 (35-46) mmHg POC ABG pO2 at Pt Temp 199 POC ABG O2 Sat 100.0 H (90-95) % Leonardo Test Pass O2 Delivery Device Cannula POC Sodium 137 (135-144) mmol/L Sodium (136-145) mmol/L POC Potassium 3.8 (3.3-5.0) mmol/L Potassium (3.5-5.1) mmol/L POC Chloride (101-112) mmol/L Chloride (98-107) mmol/L Carbon Dioxide (21-32) mmol/L POC Total CO2 25 (24-31) mmol/L Anion Gap (3-11) POC Anion Gap (16-25) mmol/L POC BUN (7-18) mg/dl BUN (6-23) mg/dl Creatinine (0.6-1.4) mg/dl POC Creatinine (0.6-1.3) mg/dl Est Cr Clr Drug Dosing ml/min Est GFR ( Amer) ml/min Est GFR (Non-Af Amer) ml/min BUN/Creatinine Ratio (10-20) Glucose (70-99(Fasting)) mg/dl POC Glucose (70-99) mg/dl POC Glucose (other) (70-99) mg/dl Estimat Average Glucose mg/dl Hemoglobin A1c (4.5-5.6) % Calcium (8.6-10.3) mg/dl POC Ioniz Calcium Shayan (1.12-1.32) mmol/l Phosphorus (2.5-4.9) mg/dl Magnesium (1.7-2.4) mg/dl Total Bilirubin (0.2-1.0) mg/dl AST (13-39) U/L ALT (7-52) U/L Alkaline Phosphatase (34-104) U/L Total Creatine Kinase (30-223) U/L Total Protein (6.0-8.3) gm/dl Albumin (3.4-5.0) gm/dl Globulin (2.5-4.0) gm/dl Albumin/Globulin Ratio (0.9-2) Prolactin 13.68 ng/ml Urine Color Urine Appearance (Clear) Urine pH (4.5-7.5) Ur Specific [place] (1.000-1.030) Urine Protein (Negative) Urine Glucose (UA) (Negative) Urine Ketones (Negative) Urine Blood (Negative) Urine Nitrite (Negative) Urine Bilirubin (Negative) Urine Urobilinogen (Negative) Ur Leukocyte Esterase (Negative) Zonisamide Levetiracetam 04/09/23 04/09/23 04/09/23 Range/Units 03:15 03:15 00:35 WBC (4.8-10.8) K/ul RBC (4.70-6.10) M/uL Hgb (14.0-18.0) g/dl POC Hgb (14.0-18.0) g/dl Hct (42.0-52.0) % POC Hct (42-52) % MCV (80.0-100.0) fL MCH (25.0-34.0) pg MCHC (32.0-36.0) g/dL RDW Std Deviation (36.4-46.3) fL RDW Coeff of Concha (11.5-14.5) % Plt Count (130-400) K/uL MPV (9.4-12.4) fL Immature Gran % (Auto) % Neut % (Auto) % Lymph % (Auto) % Stephenson % (Auto) % Eos % (Auto) % Baso % (Auto) % Neut # (Auto) (1.40-6.50) K/uL Lymph # (Auto) (1.20-3.40) K/uL Stephenson # (Auto) (0.11-0.59) K/uL Eos # (Auto) (0.00-0.50) K/uL Baso # (Auto) (0.00-0.20) K/uL Immature Gran # (Auto) (0.01-0.20) K/uL Sample Site POC pH (7.35-7.45) POC pCO2 (35-46) mmHg POC pO2 (80-95) mmHg POC HCO3 (19-24) alexander/L POC Base Excess (-9-1.8) alexander/L ABG pH (Temp Correct) (7.35-7.45) ABG pCO2 (Temp Corrct (35-46) mmHg POC ABG pO2 at Pt Temp POC ABG O2 Sat (90-95) % Leonardo Test O2 Delivery Device POC Sodium (135-144) mmol/L Sodium 139 (136-145) mmol/L POC Potassium (3.3-5.0) mmol/L Potassium 4.4 (3.5-5.1) mmol/L POC Chloride (101-112) mmol/L Chloride 108 H (98-107) mmol/L Carbon Dioxide 25 (21-32) mmol/L POC Total CO2 (24-31) mmol/L Anion Gap 6 (3-11) POC Anion Gap (16-25) mmol/L POC BUN (7-18) mg/dl BUN 9 (6-23) mg/dl Creatinine 0.97 (0.6-1.4) mg/dl POC Creatinine (0.6-1.3) mg/dl Est Cr Clr Drug Dosing 65.5 ml/min Est GFR ( Amer) 90.7 ml/min Est GFR (Non-Af Amer) 78.2 ml/min BUN/Creatinine Ratio 9.3 L (10-20) Glucose 95 (70-99(Fasting)) mg/dl POC Glucose 99 (70-99) mg/dl POC Glucose (other) (70-99) mg/dl Estimat Average Glucose 154 mg/dl Hemoglobin A1c 7.0 H (4.5-5.6) % Calcium 9.4 (8.6-10.3) mg/dl POC Ioniz Calcium Shayan (1.12-1.32) mmol/l Phosphorus 2.8 (2.5-4.9) mg/dl Magnesium 1.7 (1.7-2.4) mg/dl Total Bilirubin 0.6 (0.2-1.0) mg/dl AST 38 (13-39) U/L ALT 29 (7-52) U/L Alkaline Phosphatase 162 H (34-104) U/L Total Creatine Kinase (30-223) U/L Total Protein 6.4 (6.0-8.3) gm/dl Albumin 3.2 L (3.4-5.0) gm/dl Globulin 3.2 (2.5-4.0) gm/dl Albumin/Globulin Ratio 1.0 (0.9-2) Prolactin ng/ml Urine Color Urine Appearance (Clear) Urine pH (4.5-7.5) Ur Specific [place] (1.000-1.030) Urine Protein (Negative) Urine Glucose (UA) (Negative) Urine Ketones (Negative) Urine Blood (Negative) Urine Nitrite (Negative) Urine Bilirubin (Negative) Urine Urobilinogen (Negative) Ur Leukocyte Esterase (Negative) Zonisamide Levetiracetam 04/08/23 04/08/23 04/08/23 Range/Units 21:32 15:37 15:30 WBC (4.8-10.8) K/ul RBC (4.70-6.10) M/uL Hgb (14.0-18.0) g/dl POC Hgb 15.0 (14.0-18.0) g/dl Hct (42.0-52.0) % POC Hct 44 (42-52) % MCV (80.0-100.0) fL MCH (25.0-34.0) pg MCHC (32.0-36.0) g/dL RDW Std Deviation (36.4-46.3) fL RDW Coeff of Concha (11.5-14.5) % Plt Count (130-400) K/uL MPV (9.4-12.4) fL Immature Gran % (Auto) % Neut % (Auto) % Lymph % (Auto) % Stephenson % (Auto) % Eos % (Auto) % Baso % (Auto) % Neut # (Auto) (1.40-6.50) K/uL Lymph # (Auto) (1.20-3.40) K/uL Stephenson # (Auto) (0.11-0.59) K/uL Eos # (Auto) (0.00-0.50) K/uL Baso # (Auto) (0.00-0.20) K/uL Immature Gran # (Auto) (0.01-0.20) K/uL Sample Site POC pH (7.35-7.45) POC pCO2 (35-46) mmHg POC pO2 (80-95) mmHg POC HCO3 (19-24) alexander/L POC Base Excess (-9-1.8) alexander/L ABG pH (Temp Correct) (7.35-7.45) ABG pCO2 (Temp Corrct (35-46) mmHg POC ABG pO2 at Pt Temp POC ABG O2 Sat (90-95) % Leonardo Test O2 Delivery Device POC Sodium 138 (135-144) mmol/L Sodium (136-145) mmol/L POC Potassium 4.8 (3.3-5.0) mmol/L Potassium (3.5-5.1) mmol/L POC Chloride 103 (101-112) mmol/L Chloride (98-107) mmol/L Carbon Dioxide (21-32) mmol/L POC Total CO2 24 (24-31) mmol/L Anion Gap (3-11) POC Anion Gap 16.0 (16-25) mmol/L POC BUN 12 (7-18) mg/dl BUN (6-23) mg/dl Creatinine (0.6-1.4) mg/dl POC Creatinine 1.2 (0.6-1.3) mg/dl Est Cr Clr Drug Dosing ml/min Est GFR ( Amer) ml/min Est GFR (Non-Af Amer) ml/min BUN/Creatinine Ratio (10-20) Glucose (70-99(Fasting)) mg/dl POC Glucose 113 H (70-99) mg/dl POC Glucose (other) 219 H (70-99) mg/dl Estimat Average Glucose mg/dl Hemoglobin A1c (4.5-5.6) % Calcium (8.6-10.3) mg/dl POC Ioniz Calcium Shayan 1.29 (1.12-1.32) mmol/l Phosphorus (2.5-4.9) mg/dl Magnesium (1.7-2.4) mg/dl Total Bilirubin (0.2-1.0) mg/dl AST (13-39) U/L ALT (7-52) U/L Alkaline Phosphatase (34-104) U/L Total Creatine Kinase (30-223) U/L Total Protein (6.0-8.3) gm/dl Albumin (3.4-5.0) gm/dl Globulin (2.5-4.0) gm/dl Albumin/Globulin Ratio (0.9-2) Prolactin ng/ml Urine Color Urine Appearance (Clear) Urine pH (4.5-7.5) Ur Specific [place] (1.000-1.030) Urine Protein (Negative) Urine Glucose (UA) (Negative) Urine Ketones (Negative) Urine Blood (Negative) Urine Nitrite (Negative) Urine Bilirubin (Negative) Urine Urobilinogen (Negative) Ur Leukocyte Esterase (Negative) Zonisamide Pending Levetiracetam Pending 04/08/23 04/08/23 04/08/23 Range/Units 15:30 15:30 15:30 WBC 3.71 L (4.8-10.8) K/ul RBC 4.67 L (4.70-6.10) M/uL Hgb 14.1 (14.0-18.0) g/dl POC Hgb (14.0-18.0) g/dl Hct 42.8 (42.0-52.0) % POC Hct (42-52) % MCV 91.6 (80.0-100.0) fL MCH 30.2 (25.0-34.0) pg MCHC 32.9 (32.0-36.0) g/dL RDW Std Deviation 53.7 H (36.4-46.3) fL RDW Coeff of Concha 16.2 H (11.5-14.5) % Plt Count 181 (130-400) K/uL MPV 9.8 (9.4-12.4) fL Immature Gran % (Auto) 0.3 % Neut % (Auto) 60.6 % Lymph % (Auto) 27.8 % Stephenson % (Auto) 8.1 % Eos % (Auto) 2.7 % Baso % (Auto) 0.5 % Neut # (Auto) 2.25 (1.40-6.50) K/uL Lymph # (Auto) 1.03 L (1.20-3.40) K/uL Stephenson # (Auto) 0.30 (0.11-0.59) K/uL Eos # (Auto) 0.10 (0.00-0.50) K/uL Baso # (Auto) 0.02 (0.00-0.20) K/uL Immature Gran # (Auto) 0.01 (0.01-0.20) K/uL Sample Site POC pH (7.35-7.45) POC pCO2 (35-46) mmHg POC pO2 (80-95) mmHg POC HCO3 (19-24) alexander/L POC Base Excess (-9-1.8) alexander/L ABG pH (Temp Correct) (7.35-7.45) ABG pCO2 (Temp Corrct (35-46) mmHg POC ABG pO2 at Pt Temp POC ABG O2 Sat (90-95) % Leonardo Test O2 Delivery Device POC Sodium (135-144) mmol/L Sodium 137 (136-145) mmol/L POC Potassium (3.3-5.0) mmol/L Potassium 4.8 (3.5-5.1) mmol/L POC Chloride (101-112) mmol/L Chloride 104 (98-107) mmol/L Carbon Dioxide 26 (21-32) mmol/L POC Total CO2 (24-31) mmol/L Anion Gap 7 (3-11) POC Anion Gap (16-25) mmol/L POC BUN (7-18) mg/dl BUN 13 (6-23) mg/dl Creatinine 1.25 (0.6-1.4) mg/dl POC Creatinine (0.6-1.3) mg/dl Est Cr Clr Drug Dosing 49.1 ml/min Est GFR ( Amer) 66.7 ml/min Est GFR (Non-Af Amer) 57.6 ml/min BUN/Creatinine Ratio 10.4 (10-20) Glucose 216 H (70-99(Fasting)) mg/dl POC Glucose (70-99) mg/dl POC Glucose (other) (70-99) mg/dl Estimat Average Glucose mg/dl Hemoglobin A1c (4.5-5.6) % Calcium 10.1 (8.6-10.3) mg/dl POC Ioniz Calcium [place] (1.12-1.32) mmol/l Phosphorus (2.5-4.9) mg/dl Magnesium 1.6 L (1.7-2.4) mg/dl Total Bilirubin 0.6 (0.2-1.0) mg/dl AST 45 H (13-39) U/L ALT 35 (7-52) U/L Alkaline Phosphatase 203 H (34-104) U/L Total Creatine Kinase 107 (30-223) U/L Total Protein 7.4 (6.0-8.3) gm/dl Albumin 3.7 (3.4-5.0) gm/dl Globulin 3.7 (2.5-4.0) gm/dl Albumin/Globulin Ratio 1.0 (0.9-2) Prolactin 9.61 ng/ml Urine Color Urine Appearance (Clear) Urine pH (4.5-7.5) Ur Specific [place] (1.000-1.030) Urine Protein (Negative) Urine Glucose (UA) (Negative) Urine Ketones (Negative) Urine Blood (Negative) Urine Nitrite (Negative) Urine Bilirubin (Negative) Urine Urobilinogen (Negative) Ur Leukocyte Esterase (Negative) Zonisamide Levetiracetam Medications Administered Current Inpatient Medications Acetaminophen (Acetaminophen 325 Mg Tab) 650 mg PO Q4H PRN PRN Reason: Pain or Fever Stop: 05/08/23 17:55 Al Hydrox/Mg Hydrox/Simethicone (Aluminum/Magnesium Susp 30 Ml Udc) 15 ml PO Q4H PRN PRN Reason: Dyspepsia Stop: 05/08/23 17:55 Apixaban (Apixaban 5 Mg Tablet) 5 mg PO BID SEA Stop: 05/09/23 08:59 Last Admin: 04/09/23 10:11 Dose: Not Given Atorvastatin Calcium (Atorvastatin 40 Mg Tab) 80 mg PO DAILY SEA Stop: 05/09/23 08:59 Last Admin: 04/09/23 10:11 Dose: Not Given Dextrose (Dextrose 50% 50 Ml Syringe) 25 - 50 ml IV UD PRN; Protocol PRN Reason: Hypoglycemia Protocol Stop: 05/08/23 18:47 Ezetimibe (Ezetimibe 10 Mg Tab) 10 mg PO DAILY SEA Stop: 05/09/23 08:59 Last Admin: 04/09/23 10:12 Dose: Not Given Glucagon (Glucagon For Inj 1 Mg Vial) 1 mg SQ UD PRN; Protocol PRN Reason: Hypoglycemia Protocol Stop: 05/08/23 18:47 Glucose (Glucose 10 Tab/Tube) 4 - 8 tab PO UD PRN; Protocol PRN Reason: Hypoglycemia Treatment Stop: 05/08/23 18:47 Glucose (Glucose 40% Gel 15 Gm Tube) 15 - 30 gm PO UD PRN; Protocol PRN Reason: Hypoglycemia Protocol Stop: 05/08/23 18:47 Sodium Chloride (Nss) 1,000 mls @ 100 mls/hr IV .Q10H [facility] Stop: 04/09/23 17:13 Last Infusion: 04/09/23 05:32 Dose: 100 mls/hr Levetiracetam 2,000 mg/ Sodium (Chloride) 270 mls @ 999 mls/hr IV BID [facility] Stop: 05/08/23 21:59 Last Infusion: 04/09/23 09:54 Dose: Infused Fosphenytoin Sodium 150 mgpe/ (Sodium Chloride) 28 mls @ 108 mls/hr IV BID [facility] Stop: 05/09/23 20:59 Insulin Aspart (Insulin Aspart Per Unit Charge) 0 units SC Q6 [facility]; Protocol Stop: 05/08/23 20:14 Last Admin: 04/09/23 12:25 Dose: Not Given Insulin Glargine (Lantus Per Unit Charge) 5 units SQ HS [facility]; Protocol Stop: 05/09/23 20:59 Lenvatinib (Lenvatinib Mesylate 4 Mg Cap) 12 mg PO QAM [facility] Stop: 05/10/23 08:59 Levetiracetam (Levetiracetam 500 Mg Tab) 2,000 mg PO BID [facility] Stop: 05/08/23 20:59 Last Admin: 04/08/23 22:07 Dose: Not Given Levothyroxine Sodium (Levothyroxine Sodium 25 Mcg Tablet) 25 mcg PO DAILYBB [facility] Stop: 05/09/23 06:29 Last Admin: 04/09/23 06:09 Dose: Not Given Magnesium Hydroxide (Magnesium Hydroxide Susp 30 Ml Udc) 30 ml PO Q12H PRN PRN Reason: Constipation Stop: 05/08/23 17:55 Metoprolol Succinate (Metoprolol Succ 25mg Ext Rel Tab) 25 mg PO DAILY [facility] Stop: 05/09/23 08:59 Last Admin: 04/09/23 10:12 Dose: Not Given Miscellaneous (Carbohydrates For Hypoglycemia ) 15 - 30 gm PO UD PRN PRN Reason: Hypoglycemia Protocol Stop: 05/08/23 18:47 Miscellaneous Information (Pharmacy Glycemic Mgmt Consult) 1 each N/A UD PRN PRN Reason: Consult Stop: 05/08/23 18:47 Ondansetron HCl (Ondansetron Inj 2 Mg/Ml 2 Ml Vial) 4 mg IV Q6H PRN PRN Reason: Nausea Stop: 05/08/23 17:55 Ondansetron HCl (Ondansetron 8mg Od Tab) 8 mg PO QAM PRN PRN Reason: Nausea And Vomiting Stop: 05/08/23 20:30 Polyethylene Glycol (Polyethylene (Miralax) 17 Gm Pack) 17 gm PO DAILY PRN PRN Reason: Constipation Stop: 05/08/23 17:55 Thiamine HCl (Thiamine Hcl 100 Mg Tab) 100 mg PO DAILY [facility] Stop: 05/09/23 08:59 Last Admin: 04/09/23 10:12 Dose: Not Given Zonisamide (Zonisamide 100 Mg Capsule) 100 mg PO BID [facility] Stop: 05/08/23 20:59 Last Admin: 04/09/23 10:12 Dose: Not Given
[2023-04-09] MEDS: SODIUM CHLORIDE 0.9% 1,000 ML IV SCH (16:06)
--- NOTE | 2023-04-09 16:42 | Neurology Consultation ---
Date of Consultation April 09, 2023 Assessment & Plan (1) Breakthrough seizure: Breakthrough seizure despite Keppra 2000mg BID and zonisamide 100mg BID, episodes appear to have stopped after fosphenytoin load. Unclear if related to the meningiomas but given the same semiology as before and his ability to follow commands I do not suspect NCSE at this time. -- Continue Keppra 2000mg BID -- Continue fosphenytoin 150mg PE BID for now -- Resume zonisamide when able to swallow -- Routine EEG ordered -- Further seizure activity would transfer for LTM, would treat acutely with 2mg ativan IV for any episode lasting longer than 2 minutes (2) Stroke: Incidental? subacute stroke seen in the L thalamus. Do not suspect this is related to his seizure activity but perhaps related to his systemic malignancy. He is appropriately treated with eliquis, which should resume when able. Otherw ise would assess vessels with a CTA head and neck if possible to complete his stroke workup. Given the MRI appearance it does favor small vessel disease which is common after WBRT and with his traditional risk factors secondary to aging. This stroke could be responsible for his prolonged post-ictal period, will need therapy evals after he regains his mental status. -- CTA head and neck -- Resume eliquis when able -- Therapy evals Telehealth Consultation Telehealth Information Telehealth Information: I performed this visit using a real-time telehealth connection between my location and the patients location ([facility]). After connecting through interactive tele-video, patient was identified by name and date of and/or wristband check.Patient (or authorized healthcare business banking representative) was informed that this was a telemedicine visit and it was being conducted confidentially over secure lines. My office door was closed and no one else was present in the room with me.Patient (or authorized healthcare business banking representative) provided consent to proceed with the visit, expressed an understanding of privacy and security of the telemedicine visit, and gave permission to have a hospital business banking representative in the room in order to assist with the visit and to conduct portions of the visit, as needed. I informed the patient (or authorized healthcare business banking representative) that I reviewed their record and presented the opportunity for them to ask any questions regarding the visit today. The patient agreed to participate. History of Present Illness Reason for Consultation: Seizures Requesting Physician: Dr. 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 The patient is unable to contribute to the history due to AMS but his at bedside reports that the event she witnessed yesterday is typical of his seizure semiology though prior to December his seizures were well controlled. She denies any new focal deficits prior to the seizures or anything significantly different in the past few weeks. He has been under increased stress due to their planned move to [place]. Stress may have triggered seizures for him in the past. She notes that at times he will not be post-ictal for long, but in December was altered for an extended period of time. See note from overnight by my colleague Dr. Parham. Today his reports that he was minimally interactive this morning and did recognize her but since coming back from MRI has been more somnolent. Otherwise no history of stroke in the past, no missed doses of his seizure medication - he has still been taking his keppra 2000mg BID and zonisamide 100mg BID. Since the portal thrombosis he has been on eliquis without side effects. Reportedly his liver cancer is responding appropriately to treatment with no new growth as of his most recent scan. Allergies Allergy/AdvReac Type Severity Reaction Status Date / Time ofloxacin Allergy Intermediate INFLAMMATION, Verified 04/08/23 17:42 ITCHY RASH sulfamethoxazole Allergy Intermediate RASH Verified 04/08/23 17:42 trimethoprim Allergy Intermediate RASH Verified 04/08/23 17:42 Home Medications Medication Instructions Recorded Confirmed Type apixaban 5 mg tablet (Eliquis) 5 mg PO BID 01/03/23 04/08/23 History atorvastatin 80 mg tablet 80 mg PO DAILY 01/03/23 04/08/23 History ezetimibe 10 mg tablet 10 mg PO DAILY 01/03/23 04/08/23 History insulin aspart U-100 100 unit/mL 8 unit subcut .LUNCH 01/03/23 04/08/23 History (3 mL) subcutaneous pen (Novolog FlexPen U-100 Insulin aspart) insulin aspart U-100 100 unit/mL 12 unit subcut .SUPPER 01/03/23 04/08/23 History (3 mL) subcutaneous pen (Novolog FlexPen U-100 Insulin aspart) insulin glargine 100 unit/mL (3 33 unit subcut HS 01/03/23 04/08/23 History mL) subcutaneous pen (Basaglar KwikPen U-100 Insulin) levetiracetam 1,000 mg tablet 2,000 mg PO BID 01/03/23 04/08/23 History metformin 1,000 mg tablet 500 mg PO BID 01/03/23 04/08/23 History metoprolol succinate 50 mg 25 mg PO DAILY 01/03/23 04/08/23 History tablet,extended release 24 hr sildenafil 50 mg tablet 50 mg PO DIRECTED 01/03/23 04/08/23 History zonisamide 100 mg capsule 100 mg PO BID 01/03/23 04/08/23 History Udderly Smooth 1 applic topical DIRECTED 04/08/23 04/08/23 History lenvatinib 12 mg/day (4 mg x 3) 12 mg PO QAM 04/08/23 04/08/23 History capsule (Lenvima) levothyroxine 25 mcg tablet 25 mcg PO QAM 04/08/23 04/08/23 History ondansetron HCl 8 mg tablet 8 mg PO QAM 04/08/23 04/08/23 History prochlorperazine maleate 10 mg 10 mg PO Q6 PRN Nausea 04/08/23 04/08/23 History tablet sodium chloride 0.65 % nasal spray 2 spray intranasal DIRECTED PRN 04/08/23 04/08/23 History aerosol (Saline Nasal) Nasal Congestion thiamine HCl (vitamin B1) 100 mg 100 mg PO DAILY 04/08/23 04/08/23 History tablet (Vitamin B-1) Patient History Medical History (Updated 04/09/23 @ 16:40 by Trevor Payton MD) Brain mass HX OF LEFT FRONTAL BRAIN MASS CAD (coronary artery disease) Degenerative disc disease Dyslipidemia HX OF Fatty liver Hypertension HX OF Kidney stones Osteoarthritis Peripheral neuropathy LOWER EXTREMITIES Pulmonary fibrosis Seizure disorder LEFT FRONTAL MASS REMOVED 4 YEARS AGO>SEIZURE AFTER SURGERY LAST EVENT 2 YRS AGO/FOLLOWS DR OTERO ([facility]) Type 2 diabetes mellitus Surgical History History of colonoscopy History of craniotomy 4 YEARS AGO (MENINGIAL TUMOR) > [facility]ARDY PT REPORTS BRAIN SURGERY 5-6 YR AGO History of cystoscopy History of left cataract surgery FEB 18 2020 History of lithotripsy MOST RECENT FEB 26 2020 History of lumbar surgery X 2 History of tooth extraction Hx of vasectomy AND REVERSAL Status post coronary artery stent placement 2 STENTS PLACED 6 YEARS AGO ([facility]) FOLLOWED BY DR. NGUYỄN Family History Other Alzheimer disease Family history of esophageal cancer Social History Smoking Status: Former smoker Second Hand Exposure: No; Do You Dip or Chew Tobacco: No; Hx Alcohol Use: No Hx Substance Use: No Preferred Language: Syriac Communication Ability: Effective College [employer] Coordinator Required: No Beliefs That Will Affect Care: None marital status: Current Living Situation: Spouse Current Living Situation Comment: lives at home with his current occupational status: retired How many Children do You have: 2 Feels Safe at Home: Yes Assistive Devices: Cane Review of Systems Unable to obtain Physical Exam Neurological Examination: Mental Status: Alerts briefly to voice, follows one step commands with prompting. Requires stimulation to maintain alertness. Cranial Nerves: III/IV/: Spontaneous versions intact, no nystagmus VII: Facial expression symmetric Motor: Strength was antigravity throughout. There were no abnormal movements. Reflexes: Unable to assess over telemedicine Results & Data Vital Signs (Past 12 Hours) Vital Signs Temp Pulse Pulse Resp BP BP Pulse Ox 04/09/23 15:33 69 17 143/80 H 96 04/09/23 10:51 36.5 C 65 21 118/72 98 04/09/23 08:36 64 04/09/23 06:56 36.6 C 65 17 116/71 97 04/09/23 06:25 66 17 98 04/09/23 06:20 67 18 98 04/09/23 06:15 64 20 97 04/09/23 06:15 117/71 04/09/23 06:10 65 14 97 04/09/23 06:05 64 17 97 04/09/23 06:00 67 18 94 04/09/23 05:55 62 14 95 04/09/23 05:50 64 12 97 04/09/23 05:45 65 15 97 04/09/23 05:45 107/65 04/09/23 05:40 66 24 96 04/09/23 05:35 66 19 96 04/09/23 05:30 66 15 97 04/09/23 05:30 105/61 04/09/23 05:04 65 18 97 04/09/23 05:02 65 22 99 04/09/23 05:00 66 21 98 04/09/23 05:00 107/63 04/09/23 04:58 65 21 97 04/09/23 04:56 66 19 100 04/09/23 04:54 64 17 98 04/09/23 04:52 63 18 97 04/09/23 04:52 102/56 L 04/09/23 04:51 64 17 98 04/09/23 04:51 91/61 L 04/09/23 04:50 64 20 98 04/09/23 04:50 98/63 L 04/09/23 04:48 64 17 100 04/09/23 04:48 104/62 04/09/23 04:46 64 12 100 04/09/23 04:46 108/63 04/09/23 04:44 64 22 100 04/09/23 04:44 103/63 04/09/23 04:42 66 23 100 04/09/23 04:42 104/62 04/09/23 04:40 64 16 100 04/09/23 04:38 64 12 100 04/09/23 04:36 66 19 100 04/09/23 04:36 91/53 L 04/09/23 04:34 67 23 98 04/09/23 04:34 89/56 L 04/09/23 04:32 65 11 L 99 04/09/23 04:32 80/51 L 04/09/23 04:31 70 17 99 04/09/23 04:31 68/43 L 04/09/23 04:30 64 10 L 04/09/23 04:29 60/42 L 04/09/23 04:29 62 25 H 91 04/09/23 04:28 62 15 92 04/09/23 04:28 60/46 L 04/09/23 04:26 55 L 10 L 91 04/09/23 04:26 55/41 L 04/09/23 04:25 64/42 L 04/09/23 04:25 52 L 12 93 04/09/23 04:24 59 L 13 04/09/23 04:22 55 L 14 94 O2 Del Method 04/09/23 15:33 Room Air 04/09/23 10:51 Room Air 04/09/23 08:36 04/09/23 06:56 Room Air 04/09/23 06:25 04/09/23 06:20 04/09/23 06:15 04/09/23 06:15 04/09/23 06:10 04/09/23 06:05 04/09/23 06:00 04/09/23 05:55 04/09/23 05:50 04/09/23 05:45 04/09/23 05:45 04/09/23 05:40 04/09/23 05:35 04/09/23 05:30 04/09/23 05:30 04/09/23 05:04 04/09/23 05:02 04/09/23 05:00 04/09/23 05:00 04/09/23 04:58 04/09/23 04:56 04/09/23 04:54 04/09/23 04:52 04/09/23 04:52 04/09/23 04:51 04/09/23 04:51 04/09/23 04:50 04/09/23 04:50 04/09/23 04:48 04/09/23 04:48 04/09/23 04:46 04/09/23 04:46 04/09/23 04:44 04/09/23 04:44 04/09/23 04:42 04/09/23 04:42 04/09/23 04:40 04/09/23 04:38 04/09/23 04:36 04/09/23 04:36 04/09/23 04:34 04/09/23 04:34 04/09/23 04:32 04/09/23 04:32 04/09/23 04:31 04/09/23 04:31 04/09/23 04:30 04/09/23 04:29 04/09/23 04:29 04/09/23 04:28 04/09/23 04:28 04/09/23 04:26 04/09/23 04:26 04/09/23 04:25 04/09/23 04:25 04/09/23 04:24 04/09/23 04:22 Laboratory Results Abnormal lab results 04/08/23 04/09/23 04/09/23 Range/Units 21:32 03:15 03:15 WBC (4.8-10.8) K/ul RBC (4.70-6.10) M/uL Hgb (14.0-18.0) g/dl POC Hgb (14.0-18.0) g/dl Hct (42.0-52.0) % POC Hct (42-52) % RDW Std Deviation (36.4-46.3) fL RDW Coeff of Concha (11.5-14.5) % POC pH (7.35-7.45) POC pO2 (80-95) mmHg ABG pH (Temp Correct) (7.35-7.45) POC ABG O2 Sat (90-95) % Chloride 108 H (98-107) mmol/L BUN/Creatinine Ratio 9.3 L (10-20) POC Glucose 113 H (70-99) mg/dl Hemoglobin A1c 7.0 H (4.5-5.6) % Alkaline Phosphatase 162 H (34-104) U/L Albumin 3.2 L (3.4-5.0) gm/dl 04/09/23 04/09/23 04/09/23 Range/Units 03:15 04:44 05:07 WBC 3.55 L (4.8-10.8) K/ul RBC 4.04 L (4.70-6.10) M/uL Hgb 12.3 L (14.0-18.0) g/dl POC Hgb 10.2 L (14.0-18.0) g/dl Hct 36.7 L (42.0-52.0) % POC Hct 30 L (42-52) % RDW Std Deviation 53.2 H (36.4-46.3) fL RDW Coeff of Concha 16.0 H (11.5-14.5) % POC pH 7.33 L (7.35-7.45) POC pO2 202 H (80-95) mmHg ABG pH (Temp Correct) 7.338 L (7.35-7.45) POC ABG O2 Sat 100.0 H (90-95) % Chloride (98-107) mmol/L BUN/Creatinine Ratio (10-20) POC Glucose 108 H (70-99) mg/dl Hemoglobin A1c (4.5-5.6) % Alkaline Phosphatase (34-104) U/L Albumin (3.4-5.0) gm/dl Diagnostic Findings MRI brain - Numerous meningiomas, new lesion in the L thalamus concerning for subacute stroke.
[2023-04-09] MEDS ORDERED: FOSPHENYTOIN IV SCH (21:00)
[2023-04-09] MEDS ORDERED: LANTUS PER UNIT CHARGE SQ SCH (21:00)
[2023-04-09] MEDS ORDERED: SODIUM CHLORIDE IV SCH (21:00)
[2023-04-09] MEDS ORDERED: OPTIRAY 320 500ml IV ONE (21:14)
--- NOTE | 2023-04-09 21:17 | CT Scan Report ---
Exam(s): CT HEAD Without Contrast EXAM: CT Head Without Intravenous Contrast CLINICAL HISTORY: Reason for exam: fall.. TECHNIQUE: Axial computed tomography images of the head/brain without intravenous contrast. Automated exposure control was utilized for the study. A dose lowering technique was utilized adhering to the principles of ALARA. COMPARISON: None FINDINGS: Brain: Small amount of hyperdense material along the interhemispheric falx as well as small amount of extra-axial hyperdense material along the left parietal region may represent subdural blood. Other differential diagnosis includes metastases or meningiomas. No mass effect or midline shift. Scattered areas of hypoattenuation in the supratentorial white matter likely represent chronic small vessel ischemic changes. Encephalomalacia in the left frontal region. Ventricles and sulci: Prominence of the ventricles and sulci is likely secondary to cerebral volume loss. Bones: Left craniotomy change. No bony lesion or acute fracture. Subcutaneous tissues: Normal. Sinuses: Polyp versus mucous retention cyst in the right maxillary sinus. Mastoid air cells: Normal. Orbits: Bilateral lens implants. Other: Atherosclerotic calcifications in the intracranial vasculature. IMPRESSION: 1. Small amount of hyperdense material along the interhemispheric falx as well as small amount of extra-axial hyperdense material along the left parietal region may represent subdural blood. Other differential diagnosis includes metastases or meningiomas. 2. Chronic small vessel ischemic changes and cerebral volume loss. Encephalomalacia in the left frontal region. Communications: Call Doctor Intracranial Hemorrhage Electronically signed by: Brandon Stallings M.D. 04/09/23 21:16 PM
--- NOTE | 2023-04-09 21:38 | CT Scan Report ---
Exam(s): CTA NECK With Contrast IV Amt: 113ML OPTIRAY 320 EXAM: CT Angiography Neck With Intravenous Contrast CLINICAL HISTORY: Reason for exam: seizure, subacute CVA. TECHNIQUE: Routine carotid CT angiography protocol was performed with intravenous contrast. NASCET criteria using the distal ICAs for comparison were used for evaluation of stenoses. CTDI is 13.14 mGy and DLP is 535.93 mGy-cm. Automated exposure control was utilized for the study. A dose lowering technique was utilized adhering to the principles of ALARA. MIP reconstructed images were created and reviewed. CONTRAST: Patient received 113ML OPTIRAY 320 of IV contrast COMPARISON: None. FINDINGS: VASCULATURE: Right common carotid artery: Calcified plaque in the distal right common carotid artery with 20% stenosis. No dissection. Right internal carotid artery: Calcified plaque in the right internal carotid artery proximally causing 20% stenosis. No dissection. Right external carotid artery: Unremarkable. No occlusion. Right vertebral artery: Unremarkable. No occlusion or significant stenosis. No dissection. Left common carotid artery: Unremarkable. No occlusion or significant stenosis. No dissection. Left internal carotid artery: Calcified plaque in the left carotid bifurcation and proximal left internal carotid artery causing up to 30% stenosis. No dissection. Left external carotid artery: Unremarkable. No occlusion. Left vertebral artery: Unremarkable. No occlusion or significant stenosis. No dissection. Aorta: The aortic arch is slightly calcified but nondilated. There is no aneurysm or dissection. NECK: Bones/joints: Moderate to severe multilevel degenerative disc disease and facet arthrosis throughout the cervical spine. No acute fracture or traumatic subluxation is seen. Soft tissues: Unremarkable. Lung apices: Clear. CAROTID STENOSIS REFERENCE USING NASCET CRITERIA: % ICA stenosis = (1 - narrowest ICA diameter/diameter of distal cervical ICA) x 100. Mild - <50% stenosis. Moderate - 50-69% stenosis. Severe - 70-94% stenosis. Near occlusion - 95-99% stenosis. Occluded - 100% stenosis. IMPRESSION: Calcified plaque in the carotid bifurcations bilaterally without to 30% stenosis on the left. No thrombus or dissection is seen. Moderate to severe degenerative changes throughout the cervical spine. No acute fracture or subluxation is seen. Electronically signed by: Brian Lofton MD 04/09/23 21:37 PM
[2023-04-10] MEDS: INSULIN ASPART PER UNIT CHARGE SC SCH ×4 (00:16→19:10)
--- NOTE | 2023-04-10 00:40 | CT Scan Report ---
Exam(s): CTA HEAD With Contrast IV Amt: 113ML OPTIRAY 320 EXAM: CT Angiography Head With Intravenous Contrast CLINICAL HISTORY: seizure, subacute CVA TECHNIQUE: Axial computed tomographic angiography images of the head with intravenous contrast. CTDI is 13.28 mGy and DLP is 535.93 mGy-cm. Automated exposure control was utilized for the study. A dose lowering technique was utilized adhering to the principles of ALARA. MIP reconstructed images were created and reviewed. CONTRAST: Patient received 113ML OPTIRAY 320 of IV contrast COMPARISON: ct head w/o done and MRI head today; neck angio today. FINDINGS: Right internal carotid artery: Patent. Right anterior cerebral artery: Patent. Right middle cerebral artery: Patent. Right posterior cerebral artery: Patent. Right vertebral artery: Patent. Left internal carotid artery: Patent. Left anterior cerebral artery: Patent. Left middle cerebral artery: Patent. Left posterior cerebral artery: Patent. Left vertebral artery: Patent. Basilar artery: Patent. Incidental fenestration in the proximal vessel. Other: Moderate atherosclerotic calcifications bilateral cavernous ICA, without significant stenosis. IMPRESSION: 1. Intracranial atherosclerosis without significant stenosis. 2. No aneurysm or large vessel occlusion. Electronically signed by: Josette Poole M.D. 04/09/23 22:04 PM
[2023-04-10] MEDS: LEVOTHYROXINE SODIUM 25 MCG TABLET PO SCH (05:21)
[2023-04-10 06:06] LABS: Hematocrit (blood only) 36.9 % (42.0-52.0); Hemoglobin 12.1 g/dl (14.0-18.0); Mean Corpuscular Hemoglobin 30.6 pg (25.0-34.0); Mean Corpuscular Hgb Conc 32.8 g/dL (32.0-36.0); Mean Corpuscular Volume 93.2 fL (80.0-100.0); Mean Platelet Volume 9.5 fL (9.4-12.4); Platelet Count 138 K/uL (130-400); RDW Coefficient of Variation 16.1 % (11.5-14.5); RDW Standard Deviation 55.2 fL (36.4-46.3); Red Blood Count 3.96 M/uL (4.70-6.10); White Blood Count 4.41 K/ul (4.8-10.8)
[2023-04-10 06:19] LABS: BUN Creatinine Ratio 11.3 (10-20); Calcium 8.7 mg/dl (8.6-10.3); Creatinine Clr Calc Pharmacy 81.3 ml/min; Est GFR (African American) 104.2 ml/min; Est GFR (Non-African American) 89.9 ml/min; Magnesium 1.5 mg/dl (1.7-2.4); Phosphorus 3.5 mg/dl (2.5-4.9); Potassium 4.2 mmol/L (3.5-5.1)
[2023-04-10] MEDS: MAGNESIUM SULFATE / D5W 1 GM/100 ML BAG IV SCH ×2 (06:40→08:32)
--- NOTE | 2023-04-10 06:41 | Electroencephalogram ---
EEG Procedure Note Date of Service April 09, 2023 Start / End Times Start Time: 06:11 End Time: 06:[address] Gao History A 72 year old male with seizure. EEG performed for evaluation of epileptiform activity. Home Medication List Medication Instructions Recorded Confirmed Type apixaban 5 mg tablet (Eliquis) 5 mg PO BID 01/03/23 04/08/23 History atorvastatin 80 mg tablet 80 mg PO DAILY 01/03/23 04/08/23 History ezetimibe 10 mg tablet 10 mg PO DAILY 01/03/23 04/08/23 History insulin aspart U-100 100 unit/mL 8 unit subcut .LUNCH 01/03/23 04/08/23 History (3 mL) subcutaneous pen (Novolog FlexPen U-100 Insulin aspart) insulin aspart U-100 100 unit/mL 12 unit subcut .SUPPER 01/03/23 04/08/23 History (3 mL) subcutaneous pen (Novolog FlexPen U-100 Insulin aspart) insulin glargine 100 unit/mL (3 33 unit subcut HS 01/03/23 04/08/23 History mL) subcutaneous pen (Basaglar KwikPen U-100 Insulin) levetiracetam 1,000 mg tablet 2,000 mg PO BID 01/03/23 04/08/23 History metformin 1,000 mg tablet 500 mg PO BID 01/03/23 04/08/23 History metoprolol succinate 50 mg 25 mg PO DAILY 01/03/23 04/08/23 History tablet,extended release 24 hr sildenafil 50 mg tablet 50 mg PO DIRECTED 01/03/23 04/08/23 History zonisamide 100 mg capsule 100 mg PO BID 01/03/23 04/08/23 History Udderly Smooth 1 applic topical DIRECTED 04/08/23 04/08/23 History lenvatinib 12 mg/day (4 mg x 3) 12 mg PO QAM 04/08/23 04/08/23 History capsule (Lenvima) levothyroxine 25 mcg tablet 25 mcg PO QAM 04/08/23 04/08/23 History ondansetron HCl 8 mg tablet 8 mg PO QAM 04/08/23 04/08/23 History prochlorperazine maleate 10 mg 10 mg PO Q6 PRN Nausea 04/08/23 04/08/23 History tablet sodium chloride 0.65 % nasal spray 2 spray intranasal DIRECTED PRN 04/08/23 04/08/23 History aerosol (Saline Nasal) Nasal Congestion thiamine HCl (vitamin B1) 100 mg 100 mg PO DAILY 04/08/23 04/08/23 History tablet (Vitamin B-1) Inpatient Medication List Apixaban (Apixaban 5 Mg Tablet) 5 mg PO BID [facility] Stop: 05/09/23 08:59 Last Admin: 04/09/23 20:18 Dose: Not Given Documented By: Admin: 04/09/23 10:11 Dose: Not Given Documented By: LUDWIN Atorvastatin Calcium (Atorvastatin 40 Mg Tab) 80 mg PO DAILY [facility] Stop: 05/09/23 08:59 Last Admin: 04/09/23 10:11 Dose: Not Given Documented By: LUDWIN Ezetimibe (Ezetimibe 10 Mg Tab) 10 mg PO DAILY [facility] Stop: 05/09/23 08:59 Last Admin: 04/09/23 10:12 Dose: Not Given Documented By: LUDWIN Levetiracetam 2,000 mg/ Sodium (Chloride) 270 mls @ 999 mls/hr IV BID [facility] Stop: 05/08/23 21:59 Last Infusion: 04/09/23 21:17 Dose: 0 mls/hr Documented By: Admin: 04/09/23 20:16 Dose: 999 mls/hr Documented By: Infusion: 04/09/23 09:54 Dose: 0 mls/hr Documented By: Admin: 04/09/23 08:57 Dose: 999 mls/hr Documented By: Infusion: 04/08/23 22:38 Dose: 0 mls/hr Documented By: Admin: 04/08/23 22:08 Dose: 999 mls/hr Documented By: PÉREZ Insulin Aspart (Insulin Aspart Per Unit Charge) 0 units SC Q6 [facility]; Protocol Stop: 05/08/23 20:14 Last Admin: 04/10/23 00:16 Dose: Not Given Documented By: Admin: 04/09/23 18:25 Dose: Not Given Documented By: Admin: 04/09/23 12:25 Dose: Not Given Documented By: Admin: 04/09/23 05:15 Dose: Not Given Documented By: Admin: 04/09/23 00:37 Dose: Not Given Documented By: Admin: 04/08/23 21:38 Dose: Not Given Documented By: PÉREZ Insulin Glargine (Lantus Per Unit Charge) 5 units SQ [facility]; Protocol Stop: 05/09/23 20:59 Last Admin: 04/09/23 21:59 Dose: Not Given Documented By: PÉREZ Levetiracetam (Levetiracetam 500 Mg Tab) 2,000 mg PO BID [facility] Stop: 05/08/23 20:59 Last Admin: 04/08/23 22:07 Dose: Not Given Documented By: PÉREZ Levothyroxine Sodium (Levothyroxine Sodium 25 Mcg Tablet) 25 mcg PO DAILYBB [facility] Stop: 05/09/23 06:29 Last Admin: 04/10/23 05:21 Dose: Not Given Documented By: Admin: 04/09/23 06:09 Dose: Not Given Documented By: PÉREZ Metoprolol Succinate (Metoprolol Succ 25mg Ext Rel Tab) 25 mg PO DAILY [facility] Stop: 05/09/23 08:59 Last Admin: 04/09/23 10:12 Dose: Not Given Documented By: LUDWIN Thiamine HCl (Thiamine Hcl 100 Mg Tab) 100 mg PO DAILY [facility] Stop: 05/09/23 08:59 Last Admin: 04/09/23 10:12 Dose: Not Given Documented By: LUDWIN Zonisamide (Zonisamide 100 Mg Capsule) 100 mg PO BID [facility] Stop: 05/08/23 20:59 Last Admin: 04/09/23 20:18 Dose: Not Given Documented By: Admin: 04/09/23 10:12 Dose: Not Given Documented By: Admin: 04/08/23 22:38 Dose: Not Given Documented By: PÉREZ Discontinued Medications Gadobutrol (Gadobutrol 65ml Vial) 6.5 ml IV ONCE ONE Stop: 04/09/23 14:22 Last Admin: 04/09/23 14:21 Dose: 6.5 ml Documented By: MATEO Heparin Sodium (Porcine) (Heparin Sod 5,000 Unit/0.5 Ml Vial) 5,000 units SQ ONCE ONE Stop: 04/08/23 21:01 Last Admin: 04/08/23 23:25 Dose: 5,000 units Documented By: PÉREZ Levetiracetam 2,000 mg/ Sodium (Chloride) 270 mls @ 999 mls/hr IV NOW STA Stop: 04/08/23 16:07 Last Infusion: 04/08/23 16:33 Dose: 0 mls/hr Documented By: Admin: 04/08/23 16:09 Dose: 999 mls/hr Documented By: ORTIZ Magnesium Sulfate/Dextrose (Magnesium Sulfate / D5w) 1 gm in 100 mls @ 50 mls/hr IV Q2H SEA Stop: 04/08/23 22:29 Last Infusion: 04/08/23 23:29 Dose: 0 mls/hr Documented By: Admin: 04/08/23 21:35 Dose: 50 mls/hr Documented By: Infusion: 04/08/23 21:35 Dose: 50 mls/hr Documented By: Admin: 04/08/23 19:39 Dose: 50 mls/hr Documented By: HARI Sodium Chloride (Nss) 1,000 mls @ 100 mls/hr IV .Q10H SEA Stop: 04/09/23 17:13 Last Infusion: 04/10/23 03:02 Dose: 0 mls/hr Documented By: Admin: 04/09/23 16:06 Dose: 100 mls/hr Documented By: Infusion: 04/09/23 08:08 Dose: 100 mls/hr Documented By: Infusion: 04/09/23 05:32 Dose: 100 mls/hr Documented By: Admin: 04/08/23 19:39 Dose: 75 mls/hr Documented By: HARI Fosphenytoin Sodium 1,325 mgpe (/ Sodium Chloride) 126.5 mls @ 759 mls/hr IV NOW STA Stop: 04/09/23 04:10 Last Infusion: 04/09/23 04:36 Dose: 0 mls/hr Documented By: Admin: 04/09/23 04:15 Dose: 759 mls/hr Documented By: PÉREZ Magnesium Sulfate/Dextrose (Magnesium Sulfate / D5w) 1 gm in 100 mls @ 50 mls/hr IV Q2H SEA Stop: 04/09/23 08:14 Last Infusion: 04/09/23 08:17 Dose: 0 mls/hr Documented By: Admin: 04/09/23 06:09 Dose: 50 mls/hr Documented By: Infusion: 04/09/23 06:09 Dose: 50 mls/hr Documented By: Infusion: 04/09/23 05:00 Dose: 50 mls/hr Documented By: Infusion: 04/09/23 04:25 Dose: 0 mls/hr Documented By: Admin: 04/09/23 04:04 Dose: 50 mls/hr Documented By: PÉREZ Sodium Chloride (Nss) 500 mls @ 500 mls/hr IV .Q1H SEA Stop: 04/09/23 06:29 Last Infusion: 04/09/23 05:00 Dose: 0 mls/hr Documented By: Admin: 04/09/23 04:30 Dose: 500 mls/hr Documented By: PÉREZ Fosphenytoin Sodium 150 mgpe/ (Sodium Chloride) 28 mls @ 108 mls/hr IV BID SEA Stop: 05/09/23 20:59 Last Infusion: 04/09/23 20:15 Dose: 0 mls/hr Documented By: Admin: 04/09/23 20:03 Dose: 108 mls/hr Documented By: PÉREZ Insulin Glargine (Lantus Per Unit Charge) 12 units SQ BID SEA Stop: 05/08/23 20:59 Last Admin: 04/08/23 22:41 Dose: 12 units Documented By: PÉREZ Co-signed By: KRISTA Ioversol (Optiray 320 500ml) 113 ml IV ONCE ONE Stop: 04/09/23 21:15 Last Admin: 04/09/23 21:15 Dose: 113 ml Documented By: COLETTE Lorazepam (Lorazepam 2 Mg/1 Ml Vial) Confirm Administered Dose 4 mg .ROUTE .STK- MED ONE Stop: 04/08/23 15:35 Last Admin: 04/08/23 19:21 Dose: Not Given Documented By: HARI Lorazepam (Lorazepam 2 Mg/1 Ml Vial) 1 mg IV NOW STA Stop: 04/08/23 15:38 Last Admin: 04/08/23 15:42 Dose: 1 mg Documented By: ORTIZ Lorazepam (Lorazepam 2 Mg/1 Ml Vial) 1 mg IV NOW STA Stop: 04/08/23 15:48 Last Admin: 04/08/23 15:50 Dose: 1 mg Documented By: ORTIZ Lorazepam (Lorazepam 2 Mg/1 Ml Vial) 1 mg IV NOW STA Stop: 04/08/23 21:39 Last Admin: 04/08/23 21:45 Dose: 1 mg Documented By: PÉREZ Lorazepam (Lorazepam 2 Mg/1 Ml Vial) 0.5 mg IV NOW STA Stop: 04/08/23 21:56 Last Admin: 04/08/23 22:08 Dose: 0.5 mg Documented By: PÉREZ Lorazepam (Lorazepam 2 Mg/1 Ml Vial) 1 mg IV NOW STA Stop: 04/09/23 02:53 Last Admin: 04/09/23 03:07 Dose: 1 mg Documented By: PÉREZ Lorazepam (Lorazepam 2 Mg/1 Ml Vial) Confirm Administered Dose 2 mg .ROUTE .STK- MED ONE Stop: 04/09/23 03:03 Last Admin: 04/09/23 03:07 Dose: Not Given Documented By: PÉREZ Lorazepam (Lorazepam 2 Mg/1 Ml Vial) 1 mg IV NOW STA Stop: 04/09/23 03:30 Last Admin: 04/09/23 03:34 Dose: 1 mg Documented By: PÉREZ Lorazepam (Lorazepam 2 Mg/1 Ml Vial) 1 mg IV NOW STA Stop: 04/09/23 03:45 Last Admin: 04/09/23 03:48 Dose: 1 mg Documented By: PÉREZ Lorazepam (Lorazepam 2 Mg/1 Ml Vial) 0.5 mg IV NOW STA Stop: 04/09/23 22:30 Last Admin: 04/09/23 22:39 Dose: 0.5 mg Documented By: PÉREZ Miscellaneous (Lenvatinib [Lenvima] ~ Order Awaiting Action) 1 each N/A QS SEA Stop: 05/09/23 00:00 Last Admin: 04/09/23 10:11 Dose: Not Given Documented By: Admin: 04/09/23 00:37 Dose: Not Given Documented By: PÉREZ Description This is a 21 electrode EEG with a single channel dedicated to limited EKG. The electrodes were placed in accordance with the International 10-20 system. REPORT: At the onset of the EEG the patient is in an altered mental state. The background is discontinuous and disorganized. The background has periods of generalized suppression with burst of polymorphic delta activity which appears like a burst suspression patter. There is intermittent left sided sharply contoured waves that are semi rhythmic at times maixmal in the left frontal temporal head region. Photic does not induce any additional abnormalities. Interpretation IMPRESSION: This is an abnormal routine EEG in a patient with altered mentation due to: 1. Burst suppression patttern suggestive of severe genearlized encephalopathy. This is non specific pattern but can be seen in post hypoxic encephalopathy, medication induced, or seen or followed after status epilepticus. 2. Intermittent or frequent left sided sharp waves maximal in the left frontal temporal head region concerning for periodic lateralizing epileptiform discharges (PLEDs) which is suggestive of a predisposition for seizures from this area.
--- NOTE | 2023-04-10 07:20 | XRay Report ---
XR chest 1V portable CLINICAL HISTORY: Hypoxia. COMPARISON STUDY: Chest radiograph January 03, 2023. FINDINGS: There is no pneumothorax or pleural effusion. Lung volumes are mildly diminished. Cardiomed iastinal silhouette is stable. Interstitial thickening has mildly progressed. No superimposed consoli dation is identified. IMPRESSION: Diffuse interstitial thickening, mildly increased since prior exam. This favors intersti tial lung disease. A superimposed infectious process or pulmonary edema would be difficult to exclude . ACT 112: Negative or not required by law. Electronically signed by: Rakesh Garvin M.D. 04/10/2023 7:18 AM
[2023-04-10] MEDS: EZETIMIBE 10 MG TAB PO SCH (08:06)
[2023-04-10] MEDS: APIXABAN 5 MG TABLET PO SCH (08:06)
[2023-04-10] MEDS: ATORVASTATIN 40 MG TAB PO SCH (08:06)
[2023-04-10] MEDS: ZONISAMIDE 100 MG CAPSULE PO SCH (08:07)
[2023-04-10] MEDS: METOPROLOL SUCC 25MG EXT REL TAB PO SCH (08:07)
[2023-04-10] MEDS: THIAMINE HCL 100 MG TAB PO SCH (08:07)
[2023-04-10] MEDS ORDERED: PHENYTOIN 150 MG in SYRINGE 0 ML IV SCH (09:00)
[2023-04-10] MEDS ORDERED: LENVATINIB MESYLATE 4 MG PO SCH (09:00)
--- NOTE | 2023-04-10 14:12 | Hospitalist Progress Note ---
Date of Service April 10, 2023 Assessment & Plan (1) Seizure disorder: (2) History of liver cancer: (3) CAD (coronary artery disease): (4) Type 2 diabetes mellitus: (5) Hypertension: (6) Dyslipidemia: Plan As per Prior Provider Mr. Vanessa Sanchez is a 72 year old male with known seizure disorder presents after experiencing a witnessed seizure today. They were on their way to [place] and received an email from their moving company which caused him to be stressed and 'annoyed' and stated " I think I am going to have a stroke from this" On the way to [place] he started not responding and was not answering questions. She turned the car around and brought him to [facility]. When she was asking him questions, he was having word finding difficulties; right upward gaze, eye fluttering; became non verbal. Last known well around 2:30 today. Last known seizure was December 19, 2022; prior to that was years before. Seems to have seizures around stressful situations. He does get SOB with walking up a flight of steps. He was recently admitted to the hospital at the [facility] with seizure and encephalopathy; "post embolization syndrome" in December in [place]. Since then, he has been more sedentary since then. Earlier this month, they were back in [place]; he had a seizure again. All of the history was obtained from his , Annabelle on the phone as the patient was postictal on examination. He is in the process of moving to [place] and has had increased stress which appear to trigger his seizures. Patient has had numerous meningiomas removed previously. He currently is being treated with chemotherapy for HCC s/p liver resection 04/2022 and is now under the care of Dr. 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 Subsequently he had a peripheral portal vein DVT and has been on Eliquis since January. Following with oncology for HCC, things stable, but moving to [place] soon. No seizures since December and compliant with med. Today, Head CT revealed left posterior midline meningioma. recurrent disease, S/P radiation treatment in September 2021 at [facility]. Recurrent disease noted in the left portal vein region measuring 2.1 x 1.8 x 1.5 cm ( 10/01/2022 ) No leukocytosis; hypomanic 1.6; otherwise labs unremarkable. No alcohol, tobacco or recreational drug use. Pt with known seizure disorder and meningiomas with HCC is now postictal. Will monitor and keep on seizure precautions, replace Magnesium, keep NPO until passing dysphagia screening, Neurology consultation and IVF while NPO. Confirmed Full Code with pt . Seizure Disorder: Secondary to chronic meningiomas Acute metabolic encephalopathy Takes Keppra and Zonisamide Received additional 2 G Keppra in ED Keppra and Zonisamide levels pending Head CT: Left posterior midline meningiomas Currently on IV Keppra 2 g twice daily, phenytoin 150 mg. Plan to resume zonisamide when encephalopathy improves (currently n.p.o.) Appreciate neurology input --EEG:This is an abnormal routine EEG in a patient with altered mentation due to 1.Intermittent generalized burst suppression pattern, although improved since previous EEG performed on 04/09/23, suggestive of an underlying severe nonspecific encephalopathy, 2. intermittent left frontotemporal sharp waves suggestive of an underlying predisposition for seizures from this area, 3. Severe background slowing, with nearly continuous suppression of the right hemisphere and polymorphic generalized slowing on the left hemisphere with superimposed fast frequencies suggestive of underlying breach rhythm on the left hemisphere consistent with prior craniotomy. -- Patient needs continuous EEG -- Plan to transfer to [facility] for further care as recommended by neurology. Suspected subacute left thalamic CVA --MRI Brain:Numerous meningiomas with evolutionary changes as above. Stable cortical atrophy and small vessel disease. In the left posterior thalamus, there is interval development of T2 hyperintensity without diffusion restriction. This may represent a subacute infarct, new from prior exam. --Head CTA:Intracranial atherosclerosis without significant stenosis. No aneurysm or large vessel occlusion. --Neck TA:Calcified plaque in the carotid bifurcations bilaterally without to 30% stenosis on the left. No thrombus or dissection is seen. Moderate to severe degenerative changes throughout the cervical spine.No acute fracture or subluxation is seen. Neurology on board HCC: chronic stable Follows with Dr. Little as outpatient Takes Lenvatinib;continue as able Hypomagnesemia: replace as needed CAD: Chronic stable s/p stents x2 in 2018 H/O portal vein DVT: chronic stable Occurred in January 2023 and was placed on Eliquis; on hold due to post ictal; Heparin SQ for now. If pt NPO tomorrow and still postictal consider alternative anticoagulants Diabetes Mellitus, Type 2: chronic stable Was on Metformin and Zetia--hold for now Continue Insulin per protocol while hospitalized HTN: Continue Metoprolol HLD: Continue atorvastatin Hypothyroidism: Chronic stable Continue levothyroxine DVT Px: On Eliquis--on hold while NPO, Heparin SQ for now Code Status: Full Code Disposition [facility] Admission and Anticipated Discharge Date Admission Date: April 08, 2023 Subjective Patient is seen and examined at bedside Unable to obtain any history Had EEG earlier today Discussed with patient's family over the phone Also discussed with neurology today Plan to be discharged to tertiary care facility Review of Systems Review of Systems: Other Physical Exam Physical Exam: Physical Exam: Vitals signs as noted above General Appearance:Thin, frail, drowsy Head: normocephalic, Atraumatic Eyes: normal inspection, EOMI Neck: supple, Trachea midline Respiratory/Chest: Normal breath sounds, CTA, No accessory muscle use Cardiovascular: S1, S2, No murmur Abdomen/GI:Soft, Non tender, Bowel sounds present Extremities/Musculoskeletal:normal inspection, no edema Neurologic/Psych: Confused, does not follow commands, unable to perform complete neurological exam Skin: normal color, warm Results & Data Results & Data Vital Signs (Past 12 Hours) Vital Signs Temp Pulse Pulse Resp BP Pulse Ox O2 Del Method 04/10/23 11:27 36.6 C 82 20 134/71 97 Nasal Cannula 04/10/23 09:04 Room Air 04/10/23 07:27 36.5 C 86 15 128/75 97 Nasal Cannula 04/10/23 07:25 98 H 04/10/23 03:31 36.5 C 86 18 143/79 H 95 Nasal Cannula O2 Flow Rate 04/10/23 11:27 2 04/10/23 09:04 04/10/23 07:27 2 04/10/23 07:25 04/10/23 03:31 3 Laboratory Results Short CBC 04/10/23 Range/Units 05:45 WBC 4.41 L (4.8-10.8) K/ul Hgb 12.1 L (14.0-18.0) g/dl Hct 36.9 L (42.0-52.0) % Plt Count 138 (130-400) K/uL [facility] 04/10/23 05:45 Sodium 139 Potassium 4.2 Chloride 109 H Carbon Dioxide 25 BUN 9 Creatinine 0.80 Glucose 91 Calcium 8.7
--- NOTE | 2023-04-10 14:48 | Electroencephalogram ---
EEG Procedure Note Date of Service April 10, 2023 Start / End Times Start Time: 09:50 End Time: 10:10 Referring Physician Trevor Payton MD History A 72-year-old male with history of left meningioma resection and presumed status epilepticus. Patient is currently on multiple antiepileptic medications. He is encephalopathic. EEG performed for evaluation of epileptiform activity. Home Medication List Medication Instructions Recorded Confirmed Type apixaban 5 mg tablet (Eliquis) 5 mg PO BID 01/03/23 04/08/23 History atorvastatin 80 mg tablet 80 mg PO DAILY 01/03/23 04/08/23 History ezetimibe 10 mg tablet 10 mg PO DAILY 01/03/23 04/08/23 History insulin aspart U-100 100 unit/mL 8 unit subcut .LUNCH 01/03/23 04/08/23 History (3 mL) subcutaneous pen (Novolog FlexPen U-100 Insulin aspart) insulin aspart U-100 100 unit/mL 12 unit subcut .SUPPER 01/03/23 04/08/23 Hist ory (3 mL) subcutaneous pen (Novolog FlexPen U-100 Insulin aspart) insulin glargine 100 unit/mL (3 33 unit subcut HS 01/03/23 04/08/23 History mL) subcutaneous pen (Basaglar KwikPen U-100 Insulin) levetiracetam 1,000 mg tablet 2,000 mg PO BID 01/03/23 04/08/23 History metformin 1,000 mg tablet 500 mg PO BID 01/03/23 04/08/23 History metoprolol succinate 50 mg 25 mg PO DAILY 01/03/23 04/08/23 History tablet,extended release 24 hr sildenafil 50 mg tablet 50 mg PO DIRECTED 01/03/23 04/08/23 History zonisamide 100 mg capsule 100 mg PO BID 01/03/23 04/08/23 History Udderly Smooth 1 applic topical DIRECTED 04/08/23 04/08/23 History lenvatinib 12 mg/day (4 mg x 3) 12 mg PO QAM 04/08/23 04/08/23 History capsule (Lenvima) levothyroxine 25 mcg tablet 25 mcg PO QAM 04/08/23 04/08/23 History ondansetron HCl 8 mg tablet 8 mg PO QAM 04/08/23 04/08/23 History prochlorperazine maleate 10 mg 10 mg PO Q6 PRN Nausea 04/08/23 04/08/23 History tablet sodium chloride 0.65 % nasal spray 2 spray intranasal DIRECTED PRN 04/08/23 04/08/23 History aerosol (Saline Nasal) Nasal Congestion thiamine HCl (vitamin B1) 100 mg 100 mg PO DAILY 04/08/23 04/08/23 History tablet (Vitamin B-1) Inpatient Medication List Apixaban (Apixaban 5 Mg Tablet) 5 mg PO BID SEA Stop: 05/09/23 08:59 Last Admin: 04/10/23 08:06 Dose: Not Given Documented By: [facility] Admin: 04/09/23 20:18 Dose: Not Given Documented By: Admin: 04/09/23 10:11 Dose: Not Given Documented By: LUDWIN Atorvastatin Calcium (Atorvastatin 40 Mg Tab) 80 mg PO DAILY SE[facility] Stop: 05/09/23 08:59 Last Admin: 04/10/23 08:06 Dose: Not Given Documented By: [facility] Admin: 04/09/23 10:11 Dose: Not Given Documented By: LUDWIN Ezetimibe (Ezetimibe 10 Mg Tab) 10 mg PO DAILY SEA Stop: 05/09/23 08:59 Last Admin: 04/10/23 08:06 Dose: Not Given Documented By: [facility] Admin: 04/09/23 10:12 Dose: Not Given Documented By: LUDWIN Levetiracetam 2,000 mg/ Sodium (Chloride) 270 mls @ 999 mls/hr IV BID SE[facility] Stop: 05/08/23 21:59 Last Infusion: 04/10/23 09:09 Dose: 0 mls/hr Documented By: [facility] Admin: 04/10/23 08:29 Dose: 999 mls/hr Documented By: [facility] Infusion: 04/09/23 21:17 Dose: 0 mls/hr Documented By: Admin: 04/09/23 20:16 Dose: 999 mls/hr Documented By: Infusion: 04/09/23 09:54 Dose: 0 mls/hr Documented By: Admin: 04/09/23 08:57 Dose: 999 mls/hr Documented By: Infusion: 04/08/23 22:38 Dose: 0 mls/hr Documented By: Admin: 04/08/23 22:08 Dose: 999 mls/hr Documented By: PÉREZ Phenytoin 150 mg/ Syringe 3 mls @ 1 mls/min IV BID [facility] Stop: 05/10/23 08:59 Last Admin: 04/10/23 08:06 Dose: 1 mls/min Documented By: SIMONE Insulin Aspart (Insulin Aspart Per Unit Charge) 0 units SC Q6 [facility]; Protocol Stop: 05/08/23 20:14 Last Admin: 04/10/23 11:15 Dose: Not Given Documented By: Admin: 04/10/23 06:34 Dose: Not Given Documented By: Admin: 04/10/23 00:16 Dose: Not Given Documented By: Admin: 04/09/23 18:25 Dose: Not Given Documented By: Admin: 04/09/23 12:25 Dose: Not Given Documented By: Admin: 04/09/23 05:15 Dose: Not Given Documented By: Admin: 04/09/23 00:37 Dose: Not Given Documented By: Admin: 04/08/23 21:38 Dose: Not Given Documented By: PÉREZ Insulin Glargine (Lantus Per Unit Charge) 5 units SQ HS [facility]; Protocol Stop: 05/09/23 20:59 Last Admin: 04/09/23 21:59 Dose: Not Given Documented By: PÉREZ Lenvatinib (Lenvatinib Mesylate 4 Mg Cap) 12 mg PO QAM [facility] Stop: 05/10/23 08:59 Last Admin: 04/10/23 08:07 Dose: Not Given Documented By: SIMONE Levetiracetam (Levetiracetam 500 Mg Tab) 2,000 mg PO BID [facility] Stop: 05/08/23 20:59 Last Admin: 04/08/23 22:07 Dose: Not Given Documented By: PÉREZ Levothyroxine Sodium (Levothyroxine Sodium 25 Mcg Tablet) 25 mcg PO DAILYBB [facility] Stop: 05/09/23 06:29 Last Admin: 04/10/23 05:21 Dose: Not Given Documented By: Admin: 04/09/23 06:09 Dose: Not Given Documented By: PÉREZ Metoprolol Succinate (Metoprolol Succ 25mg Ext Rel Tab) 25 mg PO DAILY [facility] Stop: 05/09/23 08:59 Last Admin: 04/10/23 08:07 Dose: Not Given Documented By: [facility] Admin: 04/09/23 10:12 Dose: Not Given Documented By: LUDWIN Thiamine HCl (Thiamine Hcl 100 Mg Tab) 100 mg PO DAILY [facility] Stop: 05/09/23 08:59 Last Admin: 04/10/23 08:07 Dose: Not Given Documented By: [facility] Admin: 04/09/23 10:12 Dose: Not Given Documented By: LUDWIN Zonisamide (Zonisamide 100 Mg Capsule) 100 mg PO BID [facility] Stop: 05/08/23 20:59 Last Admin: 04/10/23 08:07 Dose: Not Given Documented By: [facility] Admin: 04/09/23 20:18 Dose: Not Given Documented By: Admin: 04/09/23 10:12 Dose: Not Given Documented By: Admin: 04/08/23 22:38 Dose: Not Given Documented By: PÉREZ Discontinued Medications Gadobutrol (Gadobutrol 65ml Vial) 6.5 ml IV ONCE ONE Stop: 04/09/23 14:22 Last Admin: 04/09/23 14:21 Dose: 6.5 ml Documented By: MATEO Heparin Sodium (Porcine) (Heparin Sod 5,000 Unit/0.5 Ml Vial) 5,000 units SQ ONCE ONE Stop: 04/08/23 21:01 Last Admin: 04/08/23 23:25 Dose: 5,000 units Documented By: PÉREZ Levetiracetam 2,000 mg/ Sodium (Chloride) 270 mls @ 999 mls/hr IV NOW STA Stop: 04/08/23 16:07 Last Infusion: 04/08/23 16:33 Dose: 0 mls/hr Documented By: Admin: 04/08/23 16:09 Dose: 999 mls/hr Documented By: ORTIZ Magnesium Sulfate/Dextrose (Magnesium Sulfate / D5w) 1 gm in 100 mls @ 50 mls/hr IV Q2H [facility] Stop: 04/08/23 22:29 Last Infusion: 04/08/23 23:29 Dose: 0 mls/hr Documented By: Admin: 04/08/23 21:35 Dose: 50 mls/hr Documented By: Infusion: 04/08/23 21:35 Dose: 50 mls/hr Documented By: Admin: 04/08/23 19:39 Dose: 50 mls/hr Documented By: HARI Sodium Chloride (Nss) 1,000 mls @ 100 mls/hr IV .Q10H [facility] Stop: 04/09/23 17:13 Last Infusion: 04/10/23 03:02 Dose: 0 mls/hr Documented By: Admin: 04/09/23 16:06 Dose: 100 mls/hr Documented By: Infusion: 04/09/23 08:08 Dose: 100 mls/hr Documented By: Infusion: 04/09/23 05:32 Dose: 100 mls/hr Documented By: Admin: 04/08/23 19:39 Dose: 75 mls/hr Documented By: HARI Fosphenytoin Sodium 1,325 mgpe (/ Sodium Chloride) 126.5 mls @ 759 mls/hr IV NOW STA Stop: 04/09/23 04:10 Last Infusion: 04/09/23 04:36 Dose: 0 mls/hr Documented By: Admin: 04/09/23 04:15 Dose: 759 mls/hr Documented By: PÉREZ Magnesium Sulfate/Dextrose (Magnesium Sulfate / D5w) 1 gm in 100 mls @ 50 mls/hr IV Q2H [facility] Stop: 04/09/23 08:14 Last Infusion: 04/09/23 08:17 Dose: 0 mls/hr Documented By: Admin: 04/09/23 06:09 Dose: 50 mls/hr Documented By: Infusion: 04/09/23 06:09 Dose: 50 mls/hr Documented By: Infusion: 04/09/23 05:00 Dose: 50 mls/hr Documented By: Infusion: 04/09/23 04:25 Dose: 0 mls/hr Documented By: Admin: 04/09/23 04:04 Dose: 50 mls/hr Documented By: PÉREZ Sodium Chloride (Nss) 500 mls @ 500 mls/hr IV .Q1H [facility] Stop: 04/09/23 06:29 Last Infusion: 04/09/23 05:00 Dose: 0 mls/hr Documented By: Admin: 04/09/23 04:30 Dose: 500 mls/hr Documented By: PÉREZ Fosphenytoin Sodium 150 mgpe/ (Sodium Chloride) 28 mls @ 108 mls/hr IV BID [facility] Stop: 05/09/23 20:59 Last Infusion: 04/09/23 20:15 Dose: 0 mls/hr Documented By: Admin: 04/09/23 20:03 Dose: 108 mls/hr Documented By: PÉREZ Magnesium Sulfate/Dextrose (Magnesium Sulfate / D5w) 1 gm in 100 mls @ 50 mls/hr IV Q2H [facility] Stop: 04/10/23 10:44 Last Infusion: 04/10/23 10:46 Dose: 0 mls/hr Documented By: Admin: 04/10/23 08:32 Dose: 50 mls/hr Documented By: Infusion: 04/10/23 08:32 Dose: 50 mls/hr Documented By: Admin: 04/10/23 06:40 Dose: 50 mls/hr Documented By: PÉREZ Insulin Glargine (Lantus Per Unit Charge) 12 units SQ BID [facility] Stop: 05/08/23 20:59 Last Admin: 04/08/23 22:41 Dose: 12 units Documented By: PÉREZ Co-signed By: KRISTA Ioversol (Optiray 320 500ml) 113 ml IV ONCE ONE Stop: 04/09/23 21:15 Last Admin: 04/09/23 21:15 Dose: 113 ml Documented By: COLETTE Lorazepam (Lorazepam 2 Mg/1 Ml Vial) Confirm Administered Dose 4 mg .ROUTE .STK- MED ONE Stop: 04/08/23 15:35 Last Admin: 04/08/23 19:21 Dose: Not Given Documented By: HARI Lorazepam (Lorazepam 2 Mg/1 Ml Vial) 1 mg IV NOW STA Stop: 04/08/23 15:38 Last Admin: 04/08/23 15:42 Dose: 1 mg Documented By: ORTIZ Lorazepam (Lorazepam 2 Mg/1 Ml Vial) 1 mg IV NOW STA Stop: 04/08/23 15:48 Last Admin: 04/08/23 15:50 Dose: 1 mg Documented By: ORTIZ Lorazepam (Lorazepam 2 Mg/1 Ml Vial) 1 mg IV NOW STA Stop: 04/08/23 21:39 Last Admin: 04/08/23 21:45 Dose: 1 mg Documented By: PÉREZ Lorazepam (Lorazepam 2 Mg/1 Ml Vial) 0.5 mg IV NOW STA Stop: 04/08/23 21:56 Last Admin: 04/08/23 22:08 Dose: 0.5 mg Documented By: PÉREZ Lorazepam (Lorazepam 2 Mg/1 Ml Vial) 1 mg IV NOW STA Stop: 04/09/23 02:53 Last Admin: 04/09/23 03:07 Dose: 1 mg Documented By: PÉREZ Lorazepam (Lorazepam 2 Mg/1 Ml Vial) Confirm Administered Dose 2 mg .ROUTE .STK- MED ONE Stop: 04/09/23 03:03 Last Admin: 04/09/23 03:07 Dose: Not Given Documented By: PÉREZ Lorazepam (Lorazepam 2 Mg/1 Ml Vial) 1 mg IV NOW STA Stop: 04/09/23 03:30 Last Admin: 04/09/23 03:34 Dose: 1 mg Documented By: PÉREZ Lorazepam (Lorazepam 2 Mg/1 Ml Vial) 1 mg IV NOW STA Stop: 04/09/23 03:45 Last Admin: 04/09/23 03:48 Dose: 1 mg Documented By: PÉREZ Lorazepam (Lorazepam 2 Mg/1 Ml Vial) 0.5 mg IV NOW STA Stop: 04/09/23 22:30 Last Admin: 04/09/23 22:39 Dose: 0.5 mg Documented By: PÉREZ Miscellaneous (Lenvatinib [Lenvima] ~ Order Awaiting Action) 1 each N/A QS [facility] Stop: 05/09/23 00:00 Last Admin: 04/09/23 10:11 Dose: Not Given Documented By: Admin: 04/09/23 00:37 Dose: Not Given Documented By: PÉREZ Description This is a 21 electrode EEG with a single channel dedicated to limited EKG. The electrodes were placed in accordance with the International 10-20 system. REPORT: At the onset of the EEG the patient is in an altered mental state. The background is asymmetric and disorganized. There is near lead continuous suppression of the right hemisphere. There is generalized periods of suppression followed by disorganized sharply contoured theta delta slowing in the Left hemisphere with intermittent sharply contoured waves maximal in the left frontotemporal head region. photic stimulation does not induce any additional abnormalities. No stage 2 sleep transients are seen. 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 intermittent left frontotemporal sharp waves suggestive of an underlying predisposition for seizures from this area, 3. Severe background slowing, with nearly continuous suppression of the right hemisphere and polymorphic generalized slowing on the left hemisphere with superimposed fast frequencies suggestive of underlying breach rhythm on the left hemisphere consistent with prior craniotomy.
--- NOTE | 2023-04-10 15:57 | Discharge Summary ---
Date of Service April 10, 2023 Admission HPI Per Admitting Provider Mr. Vanessa Sanchez is a 72 year old male with known seizure disorder presents after experiencing a witnessed seizure today. They were on their way to [place] and received an email from their moving company which caused him to be stressed and 'annoyed' and stated " I think I am going to have a stroke from this" On the way to [place] he started not responding and was not answering questions. She turned the car around and brought him to [facility]. When she was asking him questions, he was having word finding difficulties; right upward gaze, eye fluttering; became non verbal. Last known well around 2:30 today. Last known seizure was December 19, 2022; prior to that was years before. Seems to have seizures around stressful situations. He does get SOB with walking up a flight of steps. He was recently admitted to the hospital at the [facility] with seizure and encephalopathy; "post embolization syndrome" in December in [place]. Since then, he has been more sedentary since then. Earlier this month, they were back in [place]; he had a seizure again. All of the history was obtained from his , Annabelle on the phone as the patient was postictal on examination. He is in the process of moving to [place] and has had increased stress which appear to trigger his seizures. Patient has had numerous meningiomas removed previously. He currently is being treated with chemotherapy for HCC s/p liver resection 04/2022 and is now under the care of Dr. 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 Subsequently he had a peripheral portal vein DVT and has been on Eliquis since January. Was recently hospitalized in [place] for not taking his medications for 2 days. He hasn't had seizure since. says he doesn't do much during the day, then gets winded quickly. Following with oncology for HCC, things stable, but moving to [place] soon. No seizures since December and compliant with med. Today, Head CT revealed left posterior midline meningioma. recurrent disease, S/P radiation treatment in September 2021 at [facility]. Recurrent disease noted in the left portal vein region measuring 2.1 x 1.8 x 1.5 cm ( 10/01/2022 ) No leukocytosis; hypomanic 1.6; otherwise labs unremarkable. No alcohol, tobacco or recreational drug use. Pt with known seizure disorder and meningiomas with HCC is now postictal. Will monitor and keep on seizure precautions, replace Magnesium, keep NPO until passing dysphagia screening, Neurology consultation and IVF while NPO. Confirmed Full Code with pt . Patient will be admitted for further evaluation and management. Please see A/P for further details. Admission Exam Per Admitting Provider On exam, General: Drowsy, grunts to touch. In no distress Eyes: Opens eye to noxious stimuli and falls back to sleep ENMT: External ear and nose normal Respiratory: Normal respiratory effort, no respiratory distress, lungs clear to auscultation, no crackles and no wheezes Cardiovascular: RRR S1 S2 Gastrointestinal (Abdomen): Abdomen is not distended, soft, non-tender to palpation, no guarding, no palpable hepatosplenomegaly, normal bowel sounds Musculoskeletal: No pedal edema Neurologic: Very drowsy, Moves all extremities to noxious stimuli, Psychiatric: Unable to assess Principal Diagnosis Breakthrough seizure Suspected status epilepticus Subacute left thalamic CVA Discharge Data Allergies Allergy/AdvReac Type Severity Reaction Status Date / Time ofloxacin Allergy Intermediate INFLAMMATION, Verified 04/08/23 17:42 ITCHY RASH sulfamethoxazole Allergy Intermediate RASH Verified 04/08/23 17:42 trimethoprim Allergy Intermediate RASH Verified 04/08/23 17:42 Consultations 04/08/23 17:50 ED Decision to Admit Stat 04/08/23 17:56 Consult Neurology Routine 04/10/23 15:22 Burn CD for patient Routine Procedures Performed Laboratory Results WBC 4.41 K/ul (4.8-10.8) L 04/10/23 05:45 RBC 3.96 M/uL (4.70-6.10) L 04/10/23 05:45 Hgb 12.1 g/dl (14.0-18.0) L 04/10/23 05:45 POC Hgb 10.2 g/dl (14.0-18.0) L 04/09/23 04:44 Hct 36.9 % (42.0-52.0) L 04/10/23 05:45 POC Hct 30 % (42-52) L 04/09/23 04:44 MCV 93.2 fL (80.0-100.0) 04/10/23 05:45 MCH 30.6 pg (25.0-34.0) 04/10/23 05:45 MCHC 32.8 g/dL (32.0-36.0) 04/10/23 05:45 RDW Std Deviation 55.2 fL (36.4-46.3) H 04/10/23 05:45 RDW Coeff of Concha 16.1 % (11.5-14.5) H 04/10/23 05:45 Plt Count 138 K/uL (130-400) 04/10/23 05:45 MPV 9.5 fL (9.4-12.4) 04/10/23 05:45 Immature Gran % (Auto) 0.3 % 04/08/23 15:30 Neut % (Auto) 60.6 % 04/08/23 15:30 Lymph % (Auto) 27.8 % 04/08/23 15:30 Dane % (Auto) 8.1 % 04/08/23 15:30 Eos % (Auto) 2.7 % 04/08/23 15:30 Baso % (Auto) 0.5 % 04/08/23 15:30 Neut # (Auto) 2.25 K/uL (1.40-6.50) 04/08/23 15:30 Lymph # (Auto) 1.03 K/uL (1.20-3.40) L 04/08/23 15:30 Dane # (Auto) 0.30 K/uL (0.11-0.59) 04/08/23 15:30 Eos # (Auto) 0.10 K/uL (0.00-0.50) 04/08/23 15:30 Baso # (Auto) 0.02 K/uL (0.00-0.20) 04/08/23 15:30 Immature Gran # (Auto) 0.01 K/uL (0.01-0.20) 04/08/23 15:30 Sample Site R Radial 04/09/23 04:44 POC pH 7.33 (7.35-7.45) L 04/09/23 04:44 POC pCO2 44 mmHg (35-46) 04/09/23 04:44 POC pO2 202 mmHg (80-95) H 04/09/23 04:44 POC HCO3 23 alexander/L (19-24) 04/09/23 04:44 POC Total CO2 25 mmol/L (24-31) 04/09/23 04:44 POC Base Excess -3.0 alexander/L (-9-1.8) 04/09/23 04:44 ABG pH (Temp Correct) 7.338 (7.35-7.45) L 04/09/23 04:44 ABG pCO2 (Temp Corrct 43 mmHg (35-46) 04/09/23 04:44 POC ABG pO2 at Pt Temp 199 04/09/23 04:44 POC ABG O2 Sat 100.0 % (90-95) H 04/09/23 04:44 Leonardo Test Pass 04/09/23 04:44 O2 Delivery Device Cannula 04/09/23 04:44 POC Sodium 137 mmol/L (135-144) 04/09/23 04:44 Sodium 139 mmol/L (136-145) 04/10/23 05:45 POC Potassium 3.8 mmol/L (3.3-5.0) 04/09/23 04:44 Potassium 4.2 mmol/L (3.5-5.1) 04/10/23 05:45 POC Chloride 103 mmol/L (101-112) 04/08/23 15:37 Chloride 109 mmol/L (98-107) H 04/10/23 05:45 Carbon Dioxide 25 mmol/L (21-32) 04/10/23 05:45 POC Total CO2 24 mmol/L (24-31) 04/08/23 15:37 Anion Gap 5 (3-11) 04/10/23 05:45 POC Anion Gap 16.0 mmol/L (16-25) 04/08/23 15:37 POC BUN 12 mg/dl (7-18) 04/08/23 15:37 BUN 9 mg/dl (6-23) 04/10/23 05:45 Creatinine 0.80 mg/dl (0.6-1.4) 04/10/23 05:45 POC Creatinine 1.2 mg/dl (0.6-1.3) 04/08/23 15:37 Est Cr Clr Drug Dosing 81.3 ml/min 04/10/23 05:45 Est GFR ( Amer) 104.2 ml/min 04/10/23 05:45 Est GFR (Non-Af Amer) 89.9 ml/min 04/10/23 05:45 BUN/Creatinine Ratio 11.3 (10-20) 04/10/23 05:45 Glucose 91 mg/dl (70-99(Fasting)) 04/10/23 05:45 POC Glucose 97 mg/dl (70-99) 04/10/23 11:11 POC Glucose (other) 219 mg/dl (70-99) H 04/08/23 15:37 Estimat Average Glucose 154 mg/dl 04/09/23 03:15 Hemoglobin A1c 7.0 % (4.5-5.6) H 04/09/23 03:15 Calcium 8.7 mg/dl (8.6-10.3) 04/10/23 05:45 POC Ioniz Calcium Shayan 1.29 mmol/l (1.12-1.32) 04/08/23 15:37 Phosphorus 3.5 mg/dl (2.5-4.9) 04/10/23 05:45 Magnesium 1.5 mg/dl (1.7-2.4) L 04/10/23 05:45 Total Bilirubin 0.6 mg/dl (0.2-1.0) 04/09/23 03:15 AST 38 U/L (13-39) 04/09/23 03:15 ALT 29 U/L (7-52) 04/09/23 03:15 Alkaline Phosphatase 162 U/L (34-104) H 04/09/23 03:15 Total Creatine Kinase 107 U/L (30-223) 04/08/23 15:30 Total Protein 6.4 gm/dl (6.0-8.3) 04/09/23 03:15 Albumin 3.2 gm/dl (3.4-5.0) L 04/09/23 03:15 Globulin 3.2 gm/dl (2.5-4.0) 04/09/23 03:15 Albumin/Globulin Ratio 1.0 (0.9-2) 04/09/23 03:15 Prolactin 13.68 ng/ml 04/09/23 03:15 Urine Color Yellow 04/09/23 12:30 Urine Appearance Clear (Clear) 04/09/23 12:30 Urine pH 7.0 (4.5-7.5) 04/09/23 12:30 Ur Specific [place] 1.011 (1.000-1.030) 04/09/23 12:30 Urine Protein Negative (Negative) 04/09/23 12:30 Urine Glucose (UA) Negative (Negative) 04/09/23 12:30 Urine Ketones Negative (Negative) 04/09/23 12:30 Urine Blood Negative (Negative) 04/09/23 12:30 Urine Nitrite Negative (Negative) 04/09/23 12:30 Urine Bilirubin Negative (Negative) 04/09/23 12:30 Urine Urobilinogen Negative (Negative) 04/09/23 12:30 Ur Leukocyte Esterase Negative (Negative) 04/09/23 12:30 Impressions Brain MRI 04/09/23 02:54 MR brain wo/w con CLINICAL HISTORY: meningiomas. seziures TECHNIQUE: Multiplanar and multisequence MR images of the brain were obtained prior to and following administration of gadolinium contrast. Comparison: Comparison is made to MRI brain 08/29/2021 FINDINGS: No abnormal restricted diffusion is identified. The white matter is unremarkable. The ventricular system is normal in appearance. There is interval evolution of previously noted meningeal lesions. The posterior falx lesion demonstrates a lesser degree of enhancement (series 13 image 29), as does a left parietotemporal lesion (image 36). However there is interval enlargement of a left occipital lesion (image 45) which previously measured 6 mm compared to 10 mm today. There is also interval enlargement of a high posterior falx lesion which measures 11 mm compared to 4 mm in prior exam (image 62). Additional foci of disease are essentially unchanged from prior. Old encephalomalacia in the left frontal lobe is again noted. There is no mass effect or midline shift. There is no evidence of acute intraparenchymal hemorrhage. No extra axial fluid collections are seen. The corpus callosum, pituitary gland, and cerebellar tonsils appear grossly unremarkable. Flow voids of the major intracranial arterial vessels are identified. The imaged portions of the paranasal sinuses, mastoid air cells, and orbits are unremarkable. IMPRESSION: Numerous meningiomas with evolutionary changes as above. Stable cortical atrophy and small vessel disease. ACT 112: Negative or not required by law. Electronically signed by: Tez You M.D. 04/09/2023 2:58 PM Head CTA 04/09/23 15:36 Exam(s): CTA HEAD With Contrast IV Amt: 113ML OPTIRAY 320 EXAM: CT Angiography Head With Intravenous Contrast CLINICAL HISTORY: seizure, subacute CVA TECHNIQUE: Axial computed tomographic angiography images of the head with intravenous contrast. CTDI is 13.28 mGy and DLP is 535.93 mGy-cm. Automated exposure control was utilized for the study. A dose lowering technique was utilized adhering to the principles of ALARA. MIP reconstructed images were created and reviewed. CONTRAST: Patient received 113ML OPTIRAY 320 of IV contrast COMPARISON: ct head w/o done and MRI head today; neck angio today. FINDINGS: Right internal carotid artery: Patent. Right anterior cerebral artery: Patent. Right middle cerebral artery: Patent. Right posterior cerebral artery: Patent. Right vertebral artery: Patent. Left internal carotid artery: Patent. Left anterior cerebral artery: Patent. Left middle cerebral artery: Patent. Left posterior cerebral artery: Patent. Left vertebral artery: Patent. Basilar artery: Patent. Incidental fenestration in the proximal vessel. Other: Moderate atherosclerotic calcifications bilateral cavernous ICA, without significant stenosis. IMPRESSION: 1. Intracranial atherosclerosis without significant stenosis. 2. No aneurysm or large vessel occlusion. Electronically signed by: Josette Poole M.D. 04/09/23 22:04 PM Neck CTA 04/09/23 15:36 Exam(s): CTA NECK With Contrast IV Amt: 113ML OPTIRAY 320 EXAM: CT Angiography Neck With Intravenous Contrast CLINICAL HISTORY: Reason for exam: seizure, subacute CVA. TECHNIQUE: Routine carotid CT angiography protocol was performed with intravenous contrast. NASCET criteria using the distal ICAs for comparison were used for evaluation of stenoses. CTDI is 13.14 mGy and DLP is 535.93 mGy-cm. Automated exposure control was utilized for the study. A dose lowering technique was utilized adhering to the principles of ALARA. MIP reconstructed images were created and reviewed. CONTRAST: Patient received 113ML OPTIRAY 320 of IV contrast COMPARISON: None. FINDINGS: VASCULATURE: Right common carotid artery: Calcified plaque in the distal right common carotid artery with 20% stenosis. No dissection. Right internal carotid artery: Calcified plaque in the right internal carotid artery proximally causing 20% stenosis. No dissection. Right external carotid artery: Unremarkable. No occlusion. Right vertebral artery: Unremarkable. No occlusion or significant stenosis. No dissection. Left common carotid artery: Unremarkable. No occlusion or significant stenosis. No dissection. Left internal carotid artery: Calcified plaque in the left carotid bifurcation and proximal left internal carotid artery causing up to 30% stenosis. No dissection. Left external carotid artery: Unremarkable. No occlusion. Left vertebral artery: Unremarkable. No occlusion or significant stenosis. No dissection. Aorta: The aortic arch is slightly calcified but nondilated. There is no aneurysm or dissection. NECK: Bones/joints: Moderate to severe multilevel degenerative disc disease and facet arthrosis throughout the cervical spine. No acute fracture or traumatic subluxation is seen. Soft tissues: Unremarkable. Lung apices: Clear. CAROTID STENOSIS REFERENCE USING NASCET CRITERIA: % ICA stenosis = (1 - narrowest ICA diameter/diameter of distal cervical ICA) x 100. Mild - <50% stenosis. Moderate - 50-69% stenosis. Severe - 70-94% stenosis. Near occlusion - 95-99% stenosis. Occluded - 100% stenosis. IMPRESSION: Calcified plaque in the carotid bifurcations bilaterally without to 30% stenosis on the left. No thrombus or dissection is seen. Moderate to severe degenerative changes throughout the cervical spine. No acute fracture or subluxation is seen. Electronically signed by: Brian Lofton MD 04/09/23 21:[address] 04/09/23 20:39 CR Exam(s): CT HEAD Without Contrast EXAM: CT Head Without Intravenous Contrast CLINICAL HISTORY: Reason for exam: fall.. TECHNIQUE: Axial computed tomography images of the head/brain without intravenous contrast. Automated exposure control was utilized for the study. A dose lowering technique was utilized adhering to the principles of ALARA. COMPARISON: None FINDINGS: Brain: Small amount of hyperdense material along the interhemispheric falx as well as small amount of extra-axial hyperdense material along the left parietal region may represent subdural blood. Other differential diagnosis includes metastases or meningiomas. No mass effect or midline shift. Scattered areas of hypoattenuation in the supratentorial white matter likely represent chronic small vessel ischemic changes. Encephalomalacia in the left frontal region. Ventricles and sulci: Prominence of the ventricles and sulci is likely secondary to cerebral volume loss. Bones: Left craniotomy change. No bony lesion or acute fracture. Subcutaneous tissues: Normal. Sinuses: Polyp versus mucous retention cyst in the right maxillary sinus. Mastoid air cells: Normal. Orbits: Bilateral lens implants. Other: Atherosclerotic calcifications in the intracranial vasculature. IMPRESSION: 1. Small amount of hyperdense material along the interhemispheric falx as well as small amount of extra-axial hyperdense material along the left parietal region may represent subdural blood. Other differential diagnosis includes metastases or meningiomas. 2. Chronic small vessel ischemic changes and cerebral volume loss. Encephalomalacia in the left frontal region. Communications: Call Doctor Intracranial Hemorrhage Electronically signed by: Brandon Stallings M.D. 04/09/23 21:16 PM Chest X-Ray 04/10/23 07:00 XR chest 1V portable CLINICAL HISTORY: Hypoxia. COMPARISON STUDY: Chest radiograph January 03, 2023. FINDINGS: There is no pneumothorax or pleural effusion. Lung volumes are mildly diminished. Cardiomediastinal silhouette is stable. Interstitial thickening has mildly progressed. No superimposed consolidation is identified. IMPRESSION: Diffuse interstitial thickening, mildly increased since prior exam. This favors interstitial lung disease. A superimposed infectious process or pulmonary edema would be difficult to exclude. ACT 112: Negative or not required by law. Electronically signed by: Rakesh Garvin M.D. 04/10/2023 7:18 AM Ordered Studies 04/08/23 15:49 CT head/brain wo con Stat 04/09/23 02:54 MRI Brain [MR brain wo/w con] Urgent 04/09/23 15:36 CTA head w con [CT angio head w con] Routine CTA neck with con [CT angio neck with con] Routine 04/09/23 20:39 CT head/brain wo con Stat Hospital Course (1) Seizure disorder: (2) History of liver cancer: (3) CAD (coronary artery disease): (4) Type 2 diabetes mellitus: (5) Hypertension: (6) Dyslipidemia: Plan As per Prior Provider Mr. Vanessa Sanchez is a 72 year old male with known seizure disorder presents after experiencing a witnessed seizure today. They were on their way to [place] and received an email from their [employer] which caused him to be stressed and 'annoyed' and stated " I think I am going to have a stroke from this" On the way to [place] he started not responding and was not answering questions. She turned the car around and brought him to [facility]. When she was asking him questions, he was having word finding difficulties; right upward gaze, eye fluttering; became non verbal. Last known well around 2:30 today. Last known seizure was December 19, 2022; prior to that was years before. Seems to have seizures around stressful situations. He does get SOB with walking up a flight of steps. He was recently admitted to the hospital at the [facility] with seizure and encephalopathy; "post embolization syndrome" in December in [place]. Since then, he has been more sedentary since then. Earlier this month, they were back in [place]; he had a seizure again. All of the history was obtained from his , Annabelle on the phone as the patient was postictal on examination. He is in the process of moving to [place] and has had increased stress which appear to trigger his seizures. Patient has had numerous meningiomas removed previously. He currently is being treated with chemotherapy for HCC s/p liver resection 04/2022 and is now under the care of Dr. 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 Subsequently he had a peripheral portal vein DVT and has been on Eliquis since January. Following with oncology for HCC, things stable, but moving to [place] soon. No seizures since December and compliant with med. Today, Head CT revealed left posterior midline meningioma. recurrent disease, S/P radiation treatment in September 2021 at [facility]. Recurrent disease noted in the left portal vein region measuring 2.1 x 1.8 x 1.5 cm ( 10/01/2022 ) No leukocytosis; hypomanic 1.6; otherwise labs unremarkable. No alcohol, tobacco or recreational drug use. Pt with known seizure disorder and meningiomas with HCC is now postictal. Will monitor and keep on seizure precautions, replace Magnesium, keep NPO until passing dysphagia screening, Neurology consultation and IVF while NPO. Confirmed Full Code with pt . Seizure Disorder: Secondary to chronic meningiomas Acute metabolic encephalopathy Takes Keppra and Zonisamide Received additional 2 G Keppra in ED Keppra and Zonisamide levels pending Head CT: Left posterior midline meningiomas Currently on IV Keppra 2 g twice daily, phenytoin 150 mg. Plan to resume zonisamide when encephalopathy improves (currently n.p.o.) Appreciate neurology input --EEG:This is an abnormal routine EEG in a patient with altered mentation due to 1.Intermittent generalized burst suppression pattern, although improved since previous EEG performed on 04/09/23, suggestive of an underlying severe nonspecific encephalopathy, 2. intermittent left frontotemporal sharp waves suggestive of an underlying predisposition for seizures from this area, 3. Severe background slowing, with nearly continuous suppression of the right hemisphere and polymorphic generalized slowing on the left hemisphere with superimposed fast frequencies suggestive of underlying breach rhythm on the left hemisphere consistent with prior craniotomy. -- Patient needs continuous EEG -- Plan to transfer to [facility] for further care as recommended by neurology. Suspected subacute left thalamic CVA --MRI Brain:Numerous meningiomas with evolutionary changes as above. Stable cortical atrophy and small vessel disease. In the left posterior thalamus, there is interval development of T2 hyperintensity without diffusion restriction. This may represent a subacute infarct, new from prior exam. --Head CTA:Intracranial atherosclerosis without significant stenosis. No aneurysm or large vessel occlusion. --Neck TA:Calcified plaque in the carotid bifurcations bilaterally without to 30% stenosis on the left. No thrombus or dissection is seen. Moderate to severe degenerative changes throughout the cervical spine.No acute fracture or subluxation is seen. Neurology on board Will need to compare with prior records from [facility] HCC: chronic stable Follows with Dr. Little as outpatient Takes Lenvatinib;continue as able Hypomagnesemia: replace as needed CAD: Chronic stable s/p stents x2 in 2018 H/O portal vein DVT: chronic stable Occurred in January 2023 and was placed on Eliquis; on hold due to post ictal; Heparin SQ for now. If pt NPO tomorrow and still postictal consider alternative anticoagulants Diabetes Mellitus, Type 2: chronic stable Was on Metformin and Zetia--hold for now Continue Insulin per protocol while hospitalized HTN: Continue Metoprolol HLD: Continue atorvastatin Hypothyroidism: Chronic stable Continue levothyroxine DVT Px: On Eliquis--on hold while NPO, Heparin SQ for now Code Status: Full Code Disposition [facility] Total Time Total Time Spent Total Time Spent (In Minutes): 66 minutes Discharge Plan Discharge Items Patient Disposition: Transfer Acute Care Hospital Reason For Visit: SEIZURE Discharge Diagnosis: Breakthrough seizure Suspected status epilepticus Subacute left thalamic CVA Activity: Per Instructions section Exercise/Sports: Wait until after follow-up appointment Non-emergency contact: Primary Care Provider and Neurologist Call non-emergency contact if: you have any medication questions, your symptoms worsen, your pain is concerning for you and you have a fever Follow-up/Referrals: Giovanny Braxton MD [Primary Care Provider] - Dietitian Info: currently NPO Diet: Other - See Diet Comment Addtl Attending Provider Instructions: Follow-up with your neurologist Dr. Payton at [facility] for further management. Seek immediate medical attention if your symptoms reoccur or worsen Please take all medications as instructed on discharge list below. Please call if you have any questions or problems. You can reach a [facility] hospitalist on duty at [facility] 24 hours a day by calling [phone] [facility] Professor Of Anthropology Provider Instructions: Current Inpatient Medications Acetaminophen (Acetaminophen 325 Mg Tab) 650 mg PO Q4H PRN PRN Reason: Pain or Fever Stop: 05/08/23 17:55 Al Hydrox/Mg Hydrox/Simethicone (Aluminum/Magnesium Susp 30 Ml Udc) 15 ml PO Q4H PRN PRN Reason: Dyspepsia Stop: 05/08/23 17:55 Apixaban (Apixaban 5 Mg Tablet) 5 mg PO BID SEA Stop: 05/09/23 08:59 Last Admin: 04/10/23 08:06 Dose: Not Given Atorvastatin Calcium (Atorvastatin 40 Mg Tab) 80 mg PO DAILY SEA Stop: 05/09/23 08:59 Last Admin: 04/10/23 08:06 Dose: Not Given Dextrose (Dextrose 50% 50 Ml Syringe) 25 - 50 ml IV UD PRN; Protocol PRN Reason: Hypoglycemia Protocol Stop: 05/08/23 18:47 Ezetimibe (Ezetimibe 10 Mg Tab) 10 mg PO DAILY SEA Stop: 05/09/23 08:59 Last Admin: 04/10/23 08:06 Dose: Not Given Glucagon (Glucagon For Inj 1 Mg Vial) 1 mg SQ UD PRN; Protocol PRN Reason: Hypoglycemia Protocol Stop: 05/08/23 18:47 Glucose (Glucose 10 Tab/Tube) 4 - 8 tab PO UD PRN; Protocol PRN Reason: Hypoglycemia Treatment Stop: 05/08/23 18:47 Glucose (Glucose 40% Gel 15 Gm Tube) 15 - 30 gm PO UD PRN; Protocol PRN Reason: Hypoglycemia Protocol Stop: 05/08/23 18:47 Levetiracetam 2,000 mg/ Sodium (Chloride) 270 mls @ 999 mls/hr IV BID [facility] Stop: 05/08/23 21:59 Last Infusion: 04/10/23 09:09 Dose: Infused Phenytoin 150 mg/ Syringe 3 mls @ 1 mls/min IV BID [facility] Stop: 05/10/23 08:59 Last Admin: 04/10/23 08:06 Dose: 1 mls/min Insulin Aspart (Insulin Aspart Per Unit Charge) 0 units SC Q6 [facility]; Protocol Stop: 05/08/23 20:14 Last Admin: 04/10/23 11:15 Dose: Not Given Insulin Glargine (Lantus Per Unit Charge) 5 units SQ HS [facility]; Protocol Stop: 05/09/23 20:59 Last Admin: 04/09/23 21:59 Dose: Not Given Lenvatinib (Lenvatinib Mesylate 4 Mg Cap) 12 mg PO QAM [facility] Stop: 05/10/23 08:59 Last Admin: 04/10/23 08:07 Dose: Not Given Levetiracetam (Levetiracetam 500 Mg Tab) 2,000 mg PO BID [facility] Stop: 05/08/23 20:59 Last Admin: 04/08/23 22:07 Dose: Not Given Levothyroxine Sodium (Levothyroxine Sodium 25 Mcg Tablet) 25 mcg PO DAILYBB [facility] Stop: 05/09/23 06:29 Last Admin: 04/10/23 05:21 Dose: Not Given Magnesium Hydroxide (Magnesium Hydroxide Susp 30 Ml Udc) 30 ml PO Q12H PRN PRN Reason: Constipation Stop: 05/08/23 17:55 Metoprolol Succinate (Metoprolol Succ 25mg Ext Rel Tab) 25 mg PO DAILY [facility] Stop: 05/09/23 08:59 Last Admin: 04/10/23 08:07 Dose: Not Given Miscellaneous (Carbohydrates For Hypoglycemia ) 15 - 30 gm PO UD PRN PRN Reason: Hypoglycemia Protocol Stop: 05/08/23 18:47 Miscellaneous Information (Pharmacy Glycemic Mgmt Consult) 1 each N/A UD PRN PRN Reason: Consult Stop: 11/29/23 18:47 Ondansetron HCl (Ondansetron Inj 2 Mg/Ml 2 Ml Vial) 4 mg IV Q6H PRN PRN Reason: Nausea Stop: 05/08/23 17:55 Ondansetron HCl (Ondansetron 8mg Od Tab) 8 mg PO QAM PRN PRN Reason: Nausea And Vomiting Stop: 05/08/23 20:30 Polyethylene Glycol (Polyethylene (Miralax) 17 Gm Pack) 17 gm PO DAILY PRN PRN Reason: Constipation Stop: 05/08/23 17:55 Thiamine HCl (Thiamine Hcl 100 Mg Tab) 100 mg PO DAILY [facility] Stop: 05/09/23 08:59 Last Admin: 04/10/23 08:07 Dose: Not Given Zonisamide (Zonisamide 100 Mg Capsule) 100 mg PO BID [facility] Stop: 05/08/23 20:59 Last Admin: 04/10/23 08:07 Dose: Not Given Pending Studies at Discharge: No Stand-Alone Forms: [facility] Skilled Items Patient informed of condition?: No DNR: No Discharge Level of Care: Other Communicable Disease: No Discharge Prognosis: Stable Lines: Peripheral IV Urinary Catheter: Yes Medications and DC Order Prescriptions: Continued ondansetron HCl 8 mg tablet 8 mg PO QAM Rx Instructions: Take 1 hr prior to oral chemo. thiamine HCl (vitamin B1) [Vitamin B-1] 100 mg Tablet 100 mg PO DAILY prochlorperazine maleate 10 mg tablet 10 mg PO Q6 PRN (Reason: Nausea) levothyroxine 25 mcg tablet 25 mcg PO QAM Saline Nasal 0.65 % Aerosol,Steele 2 spray INTRANASAL DIRECTED PRN (Reason: Nasal Congestion) Lenvima 12 mg/day (4 mg x 3) capsule 12 mg PO QAM Udderly Smooth 1 applic topical DIRECTED atorvastatin 80 mg tablet 80 mg PO DAILY sildenafil 50 mg tablet 50 mg PO DIRECTED metoprolol succinate 50 mg tablet extended release 24 hr 25 mg PO DAILY zonisamide 100 mg capsule 100 mg PO BID metformin 1,000 mg Tablet 500 mg PO BID ezetimibe 10 mg tablet 10 mg PO DAILY insulin aspart U-100 [Novolog FlexPen U-100 Insulin] 100 unit/mL (3 mL) insulin pen 8 unit SUBCUT .LUNCH insulin aspart U-100 [Novolog FlexPen U-100 Insulin] 100 unit/mL (3 mL) insulin pen 12 unit SUBCUT .SUPPER levetiracetam 1,000 mg tablet 2,000 mg PO BID Eliquis 5 mg Tablet 5 mg PO BID insulin glargine [Basaglar KwikPen U-100 Insulin] 100 unit/mL (3 mL) insulin pen 33 unit SUBCUT HS Discharge Orders: Discharge Order (Routine); Ordered 04/10/23 Ordered By: Edward Raya/Other Patient Handouts: Managing Type 2 Diabetes Admission Data Admit Date/Time: 04/08/23 17:56 Attending Provider: Edward Vazquez Admit Provider: Sunita Taylor I. Primary Care Provider: Giovanny Braxton Other Providers: Sunita Taylor Anthony
[2023-04-10] MEDS ORDERED: LORazepam 2 MG/1 ML VIAL ONE (23:11)
[2023-04-15 15:32] LABS: Levetiracetam Keppra 113.1 mcg/mL (6.0-46.0); Zonisamide Zonegran 15.2 mcg/mL (10.0-40.0)
== END 2023-04-10 19:58 | disposition short-term general hospital (02) | DRG 100 ==
LOC: ED 15:25 → SUATTDRO 17:56 → EDINP 17:56 → 2E 21:06